=== PATIENT | female | born 1955 | race Caucasian/White ===

== ENCOUNTER 2019-12-20 13:36 | Inpatient (IN) | payer OTHER ==
[~2019-12-20] VITALS: Ht 157.5 cm; Wt 78.9 kg
[2019-12-20] VITALS (32 sets, daily range): BP systolic 87–136; BP diastolic 41–63
--- NOTE | 2019-12-20 13:36 | NUR ---
Patient BIBA ALS accompanied by Ariana DOWELL, transferred to bed 10. RN evaluating patient at bedside.
[2019-12-20] MEDS ORDERED: NACL 0.9% 2,000 ML IV ONE (13:45)
[2019-12-20] MEDS ORDERED: MEROPENEM 1,000 MG in NACL 0.9% 100 ML IV ONE (13:45)
[2019-12-20] MEDS ORDERED: VANCOMYCIN 1,000 MG in DEXTROSE 5% 250 ML IV ONE (13:45)
[2019-12-20] MEDS ORDERED: CARV12.52 PO (13:54)
[2019-12-20] MEDS ORDERED: SYN.075 PO (13:54)
[2019-12-20] MEDS ORDERED: LEVE1000 PO (13:54)
[2019-12-20] MEDS ORDERED: VIT500LI GT (13:54)
[2019-12-20] MEDS ORDERED: MULT-1328 GT (13:54)
[2019-12-20] MEDS ORDERED: TRAM50TA1 GT (13:58)
[2019-12-20] MEDS ORDERED: INSU100S5 IJ (13:58)
[2019-12-20] MEDS ORDERED: LANTUS SC (13:58)
--- NOTE | 2019-12-20 13:58 | NUR ---
64 Y/O F BIBA FROM [facility] C/C HYPOXIC, LOW SPO2. PT ON TRACH, VENTED BY BVM WITH HIGH FLOW EN ROUTE TO HOSPITAL AT A SPO2 78%. NKA. HX MULTIPLE CARDIAC ARREST, ANOXIC ENCEPHALOPATHY, PACEMAKER, DVT, HTN, HLD, DM, CVA, SEIZURE. RX SEE LIST. PT PRESENTS WITH TRACH, G-TUBE. A/OX0.
--- NOTE | 2019-12-20 14:02 | NUR ---
EMT FOR EKG AT BEDSIDE
--- NOTE | 2019-12-20 14:02 | NUR ---
ERMD AT BEDSIDE
--- NOTE | 2019-12-20 14:02 | NUR ---
RT AT BEDSIDE
[2019-12-20] MEDS ORDERED: MEROPENEM 1,000 MG VIAL IV ONE (14:08)
[2019-12-20] MEDS ORDERED: VANCOMYCIN 1,000 MG VIAL ONE (14:09)
[2019-12-20 14:12] LABS: BASOPHILS % (AUTO) 0.5 % (0.0-2.0); EOSINOPHILS % (AUTO) 0.8 % (0.0-4.0); HEMATOCRIT 31.5 % (36-48); HEMOGLOBIN 10.3 g/dL (12.0-16.0); LYMPHOCYTES # (AUTO) 0.2 K/uL (2.5-16.5); LYMPHOCYTES % (AUTO) 8.7 % (20.5-51.1); MEAN CORPUSCULAR HEMOGLOBIN 30 pg (27-31); MEAN CORPUSCULAR HGB CONC 33 g/dL (33-37); MEAN CORPUSCULAR VOLUME 90.8 fL (80-94); MONOCYTES # (AUTO) 0.1 K/uL (0.8-1.0); MONOCYTES % (AUTO) 2.3 % (1.7-9.3); NEUTROPHILS # (AUTO) 2.5 K/uL (1.8-7.7); NEUTROPHILS % (AUTO) 87.7 % (42.2-75.2); PLATELET COUNT (AUTO) 293 K/uL (140-450); RED BLOOD CELL COUNT(AUTO) 3.47 MIL/uL (4.20-5.40); RED CELL DISTRIBUTION WIDTH 17.2 % (11.6-13.7); WHITE BLOOD COUNT (AUTO) 2.9 K/uL (4.8-10.8)
[2019-12-20 14:26] LABS: APPEARANCE,URINE CLEAR (CLEAR); BILIRUBIN,URINE NEGATIVE (NEGATIVE); BLOOD, URINE 3+ (NEGATIVE); COLOR,URINE YELLOW (YELLOW); LEUKOCYTE ESTERASE ,URINE 2+ (NEGATIVE); NITRITE, URINE POSITIVE (NEGATIVE); UGLUCOSE NEGATIVE (NEGATIVE)
[2019-12-20 14:47] LABS: PROTHROMBIN TIME 10.3 secs (10.8-13.4)
[2019-12-20] MEDS ORDERED: NOREPINEPHRINE 4 MG/4 ML VIAL IV ONE (15:06)
[2019-12-20 15:16] LABS: ALBUMIN 2.3 g/dL (3.4-5.0); ANION GAP 10.2 (8-16); CARBON DIOXIDE 31.2 mmol/L (21-32); CREATININE 1.2 mg/dL (0.6-1.3); TOTAL BILIRUBIN 0.8 mg/dL (0.0-1.0)
[2019-12-20] MEDS: NOREPINEPHRINE 4 MG in DEXTROSE 5% 250 ML IV ONE (15:23)
--- NOTE | 2019-12-20 15:23 | NUR ---
PT STARTED ON LEVOPHED VSS- SEE FLOWSHEET
[2019-12-20 15:27] LABS: POTASSIUM 2.4 mmol/L (3.5-5.1)
[2019-12-20] MEDS ORDERED: POTASSIUM CHL 20 MEQ/ 1/2 NS 1,000 ML IV ONE (15:30)
--- NOTE | 2019-12-20 15:36 | NUR ---
INITIAL LEVOPHED DOSE 5 MCG/MIN INCREASED TO 7 MCG/MIN TO MEET SBP GOAL WILL CONTINUE MONITOR
[2019-12-20] MEDS ORDERED: KCL 20 MEQ/WATER INJ PREMIX 100 ML IV ONE (16:00)
--- NOTE | 2019-12-20 16:06 | NUR ---
SBP MAINTAINED AT 7MCG/MIN ERMD AWARE
--- NOTE | 2019-12-20 16:06 | NUR ---
ERMD AT BEDSIDE INITIATING A CENTRAL LINE
--- NOTE | 2019-12-20 17:25 | NUR ---
PT TRANSFERRED FROM ER TO ICU, BEDSIDE REPORT RECEIVED FROM BANDAR OCHOA. PT DOES NOT FOLLOW COMMANDS AT THIS TIME. PACED RHYTHM ON MONITOR. TRACH TO VENT WITH SETTINGS AC 14, FIO2 100%, VT 500, PEEP 5. LUNGS SOUND COARSE, DIMINISHED AT BASES. NO RESP DISTRESS NOTED. CENTRAL LINE TO LEFT SUBCLAVIAN PATENT AND INTACT. PT IS ON LEVOPHED DRIP AT 7 MCG/MIN. G-TUBE IN PLACE, ABD ROUND, NONTENDER W/ ACTIVE BOWEL SOUNDS. BELL CATH IN PLACE, HEMATURIA NOTED. DR. PIEDRA MADE AWARE OF HEMATURIA. SKIN IS INTACT, DRY AND WARM TO TOUCH. AFEBRILE. FLACC 0. HOB 30 DEGREES. BED IN LOWEST POSITION LOCKED. CALL LIGHT WITHIN REACH. NO SIGNS OF DISTRESS NOTED. WILL CONTINUE TO MONITOR.
[2019-12-20] MEDS ORDERED: ACETAMINOPHEN 325 MG SUPP RC PRN (17:30)
[2019-12-20] MEDS ORDERED: NACL 0.9% 500 ML IV ONE (17:30)
--- NOTE | 2019-12-20 17:34 | NUR ---
Patient will be admitted to care of GROBLER. Admited to ICU. Will go to room 1. Belongings list completed. Report to BANDAR WILSON.
[2019-12-20] MEDS ORDERED: VANCOMYCIN PER PHARMACY MC PRN (18:00)
[2019-12-20] MEDS ORDERED: KCL 20 MEQ/WATER INJ PREMIX 200 ML IV SCH (18:00)
--- NOTE | 2019-12-20 18:00 | NUR ---
DR. PIEDRA IN TO SEE PT. WILL FOLLOW UP ON ORDERS.
[2019-12-20] MEDS ORDERED: ONDANSETRON 4 MG/2 ML VIAL IVP PRN (18:05)
[2019-12-20] MEDS ORDERED: NOREPINEPHRINE 4 MG in DEXTROSE 5% 250 ML IV PRN (18:10)
--- NOTE | 2019-12-20 19:20 | NUR ---
RECEIVED PATIENT WITH HOB ELEVATED TO 30 DEGREE; LETHARGIC BUT AROUSABLE TO ONE STEP COMMANDS. AT BEDSIDE. ON TRACH TO VENT AT 50% FIO2, SO2 100%. CARDIACSCOPE SHOWS ON SINUS RHYTHM HR 70 /MIN. WITH PERMANENT PACER IN PLACE Addendum: 12/21/19 at 0624 by Azeb Reynolds RN DUPLICATE DOCUMENTATION
--- NOTE | 2019-12-20 19:20 | NUR ---
RECEIVED PATIENT ON BED WITH HOB TO 30 DEGREE; LETHARGIC BUT AROUSABLE TO CALLS BY OPENING HER EYES. TRACHEOSTOMY IN SITU TO [facility] VENTILATOR AT 50% FIO2; S02 100%. CARDIACSCOPE SHOWS ON SINUS RHYTHM HR 70/MIN NO ARRHYTHMIAS SEEN. PERMANENT PACEMAKER IN PLACE TO RIGHT UPPER CHEST AND NOTED STILL WITH STAPLE WIRES. COMMENCING ON IVF NORMAL SALINE AT 100ML/HR WITH CENTRAL LINE ON LEFT SUBCLAVIAN AND ON LEVOPHED DRIP AT 5 MCG/MIN; PATENT AND INTACT. ABDOMEN IS SOFT, HYPOACTIVE BOWEL SOUNDS; G TUBE IN PLACE, CLAMPED FOR NOW. WITH BELL CATH TO GRAVITY DRAINAGE BAG DRAINING TO DARK ORANGE TO REDDISH URINE OUTPUT; INTACT.
--- NOTE | 2019-12-20 19:30 | NUR ---
REPORT GIVEN TO TIME PIECE REPAIRER RN FOR CONTINUITY OF CARE. NO SIGNS OF DISTRESS NOTED AT THIS TIME.
[2019-12-20] MEDS ORDERED: PIPERACILLIN/TAZOBACTAM 3.375 GM VIAL IV ONE (19:38)
[2019-12-20 20:06] LABS: HEMATOCRIT 24.3 % (36-48); HEMOGLOBIN 7.8 g/dL (12.0-16.0); MEAN CORPUSCULAR HEMOGLOBIN 29 pg (27-31); MEAN CORPUSCULAR HGB CONC 32 g/dL (33-37); MEAN CORPUSCULAR VOLUME 90.2 fL (80-94); PLATELET COUNT (AUTO) 254 K/uL (140-450); RED CELL DISTRIBUTION WIDTH 16.6 % (11.6-13.7); WHITE BLOOD COUNT (AUTO) 20.4 K/uL (4.8-10.8)
[2019-12-20] MEDS: PIPERACILLIN/TAZOBACTAM 3.375 GM in DEXTROSE 5% 50 ML IV SCH (20:07)
[2019-12-20 20:19] LABS: ANION GAP 11.1 (8-16); CARBON DIOXIDE 27.9 mmol/L (21-32); CREATININE 1.2 mg/dL (0.6-1.3)
[2019-12-20 20:21] LABS: BASOPHILS % (MANUAL) 0 % (0-2); EOSINOPHILS % (MANUAL) 0 % (0-4); LYMPHOCYTES % (MANUAL) 1 % (20-46); MONOCYTES % (MANUAL) 4 % (5-12)
[2019-12-20] MEDS: FAMOTIDINE 20 MG/2 ML VIAL IV SCH (20:39)
[2019-12-20] MEDS: MORPHINE SULFATE 2 MG/ML SYR IVP PRN (20:40)
--- NOTE | 2019-12-20 20:56 | NUR ---
Received pt stable on vent support at documented settings, will titrate Fio2 as tolerated, suctioned small thick blood tinged yellow secretions, no resp distress or SOB noted at this time, found Shiley 6 trach, trach secured/patent/midline, alarms set and audible, ambu bag at bedside, vent plugged into red outlet and wiped down, cont pulse ox on, will cont to monitor.
--- NOTE | 2019-12-20 22:05 | NUR ---
SEEN AND EXAMINED BY DR. LOOMIS, NO NEW ORDER MADE.
[2019-12-21] VITALS (26 sets, daily range): BP systolic 95–152; BP diastolic 43–69
--- NOTE | 2019-12-21 | NUR ---
TURNED AND REPOSITIONED PATIENT; ORAL CARE DONE WITH VAP KIT.
[2019-12-21] MEDS ORDERED: PIPERACILLIN/TAZOBACTAM 3.375 GM VIAL IV ONE ×2 (00:09→04:33)
[2019-12-21] MEDS: PIPERACILLIN/TAZOBACTAM 3.375 GM in DEXTROSE 5% 50 ML IV SCH ×4 (00:18→17:05)
--- NOTE | 2019-12-21 00:30 | NUR ---
BP WITHIN NORMAL RANGE; LEVOPHED DRIP TAPER AND HOLD.
[2019-12-21] MEDS ORDERED: VANCOMYCIN 1GM/DEXT 5% PREMIX 200 ML IV SCH (02:00)
[2019-12-21] MEDS: NACL 0.9% 1,000 ML IV SCH ×3 (03:35→13:35)
--- NOTE | 2019-12-21 04:00 | NUR ---
MORNING BED BATH DONE; KEPT CLEAN AND COMFORTABLE.
[2019-12-21 05:21] LABS: HEMATOCRIT 22.1 % (36-48); HEMOGLOBIN 7.2 g/dL (12.0-16.0); MEAN CORPUSCULAR HEMOGLOBIN 29 pg (27-31); MEAN CORPUSCULAR HGB CONC 33 g/dL (33-37); MEAN CORPUSCULAR VOLUME 89.9 fL (80-94); PLATELET COUNT (AUTO) 179 K/uL (140-450); RED BLOOD CELL COUNT(AUTO) 2.46 MIL/uL (4.20-5.40); RED CELL DISTRIBUTION WIDTH 16.9 % (11.6-13.7); WHITE BLOOD COUNT (AUTO) 14.2 K/uL (4.8-10.8)
[2019-12-21 06:02] LABS: BASOPHILS % (MANUAL) 0 % (0-2); EOSINOPHILS % (MANUAL) 0 % (0-4); LYMPHOCYTES % (MANUAL) 4 % (20-46); MONOCYTES % (MANUAL) 6 % (5-12)
[2019-12-21 06:12] LABS: ANION GAP 11.8 (8-16); CARBON DIOXIDE 25.7 mmol/L (21-32); CREATININE 1.4 mg/dL (0.6-1.3)
[2019-12-21 06:28] LABS: POTASSIUM 2.5 mmol/L (3.5-5.1)
[2019-12-21] MEDS ORDERED: KCL 20 MEQ/WATER INJ PREMIX 300 ML IV ONE (06:50)
[2019-12-21] MEDS ORDERED: KCL 20 MEQ/WATER INJ PREMIX 200 ML IV ONE (07:00)
--- NOTE | 2019-12-21 07:30 | NUR ---
BEDSIDE REPORT RECEIVED FROM CUT PLUG PACKER RN. PT OPENS EYES TO NAME, ABLE TO MAKE NEEDS KNOWN AND FOLLOWS COMMANDS. DENIES PAIN OR NAUSEA. AFEBRILE. PACED RHYTHM ON MONITOR. PACEMAKER AT RIGHT CHEST. TRACH TO VENT WITH SETTINGS AC 14, FIO2 40%, VT 500, PEEP 5. RHONCHI HEARD BILATERALLY, DIMINISHED AT BASES. NO SOB NOTED. CENTRAL LINE TO LEFT SUBCLAVIAN PATENT AND INTACT. PT IS RECEIVING IVF NS AT 100 ML/HR. G-TUBE IN PLACE, RECEIVING TUBE FEEDING GLUCERNA AT 40 ML/HR WITH FWF 150 ML Q4H, ABD SOFT, ROUND, NONTENDER W/ ACTIVE BOWEL SOUNDS. BELL CATH IN PLACE DRAINING DARK ORANGE URINE TO GRAVITY. SKIN IS DRY AND WARM TO TOUCH. HEALED INCISION TO RIGHT CHEST AND ABDOMEN NOTED. HOB 30 DEGREES. BED IN LOWEST POSITION LOCKED. CALL LIGHT WITHIN REACH. NO SIGNS OF DISTRESS NOTED. WILL CONTINUE TO MONITOR.
--- NOTE | 2019-12-21 09:40 | NUR ---
PT SEEN AND EXAMINED BY DR. PIEDRA. PER DR. PIEDRA, NO NEED TO GIVE ANOTHER 60 MEQ KCL AFTER THE FIRST 60 MEQ KCL. GIVE 20 MEQ KCL MIXED IN 1 LITER OF NORMAL SALINE X1 INSTEAD. ORDER NOTED AND WILL CARRY OUT. Addendum: 12/21/19 at 1752 by Joanie Streeter RN DR. PIEDRA AWARE OF PT'S LOW URINE OUTPUT OF 200 ML TOTAL DURING ENTEROSTOMAL NURSE.
[2019-12-21] MEDS ORDERED: POTASSIUM CHL 20 MEQ/NACL 0.9% 1,000 ML IV SCH ×3 (10:00→13:00)
[2019-12-21] MEDS: INSULIN LISPRO SLIDING SCALE 100 UNITS/ML VIAL SUBQ PRN ×2 (11:34→17:32)
[2019-12-21] MEDS: BLOOD GLUCOSE MONITORING 1 DEV DEV FS SCH ×2 (11:34→17:32)
--- NOTE | 2019-12-21 11:55 | NUR ---
PT HAD MODERATE AMOUNT OF LOOSE BOWEL MOVEMENT. CLEANED AND REPOSITIONED. VAP ORAL CARE GIVEN. PT IS AFEBRILE, DENIES PAIN OR ANY DISCOMFORT AT THIS TIME. TOLERATING TUBE FEEDING. TRACH TO VENT. SAFETY PRECAUTIONS IN PLACE. WILL CONTINUE TO MONITOR.
[2019-12-21] MEDS ORDERED: POTASSIUM CHLORIDE 20 MEQ in NACL 0.9% 1,000 ML IV SCH (13:00)
[2019-12-21] MEDS: VANCOMYCIN 750 MG in DEXTROSE 5% 250 ML IV SCH (13:46)
--- NOTE | 2019-12-21 15:18 | NUR ---
PT SEEN BY DR. LOOMIS. UPDATES GIVEN ON PT'S CONDITION. NO NEW ORDER RECEIVED AT THIS TIME.
--- NOTE | 2019-12-21 16:00 | NUR ---
VAP ORAL CARE GIVEN. TURNED AND REPOSITIONED. NO SIGNS OF DISTRESS NOTED. PT IS AFEBRILE. NO C/O PAIN. NO RESIDUALS NOTED FROM TUBE FEEDING. VSS. WILL CONTINUE TO MONITOR.
[2019-12-21] MEDS: MORPHINE SULFATE 2 MG/ML SYR IVP PRN (16:30)
--- NOTE | 2019-12-21 17:54 | NUR ---
PT HAD MODERATE AMOUNT OF LOOSE BOWEL MOVEMENT. CLEANED AND REPOSITIONED FOR COMFORT AND PRESSURE AREAS OFF LOADED. PT TOLERATED WELL.
--- NOTE | 2019-12-21 18:17 | NUR ---
DR. IGNACIO IN TO SEE PT. WILL FOLLOW UP ON ORDERS.
--- NOTE | 2019-12-21 18:32 | NUR ---
PAGED DR. LOOMIS REGARDING BLOOD CULTURE RESULT. AWAITING CALL BACK.
--- NOTE | 2019-12-21 19:01 | NUR ---
RECEIVED TRACH PT WITH MISTY 6 AND SECURED WITH TRACH TIE ON VENT SETTINGS ORDERED. VENT PLUGGED IN RED OUTLET, BVM AT BEDSIDE, HOB > 30, AND ALARMS SET AND AUDIBLE. SX SMALL AMOUNT OF PINK TINGED SECRETIONS. NO RESPIRATORY DISTRESS NOTED AT THIS TIME; SP02 OF 95% AND A COARSE BREATH SOUNDS. WILL CONTINUE TO MONITOR PT.
--- NOTE | 2019-12-21 19:34 | NUR ---
REPORT GIVEN TO QUALITY ENG RN FOR CONTINUITY OF CARE. PT IS IN STABLE CONDITION.
[2019-12-21] MEDS: FAMOTIDINE 20 MG/2 ML VIAL IV SCH (21:49)
[2019-12-21] MEDS: LORazepam 2 MG/ML VIAL IVP PRN (21:51)
--- NOTE | 2019-12-21 22:30 | NUR ---
RECEIVED REPORT FROM DAY SHIFT PATIENT IS AWAKE ALERT FOLLOWED SIMPLE COMMAND BY NODDING WHEN ASKED IF IN PAIN ,PATIENT IS BEING VENTILATED WITH MECHANICAL VENTILATOR THRU HER TRACH TUBE,VENT SETTINT IS AC 14 WITH FIO2 40%,TIDAL VOLUME OF 500 WITH PEEP OF 5,PATIENT IS SATURATING 98%,PATIENT WITH LEFT SUBCLAVIAN TRIPLE LUMEN CATHETER ,HAS AN IV OF NORMAL SALINE WITH 20 MEQKCL INFUSING AT 50CC/HR.PATIENT IS ON CONTINOUS FEEDING WITH GLUCERNA 1.2 AT 50CC/HR THRU HER PEG.ABDOMEN IS SOFT HAS ACTIVE BOWEL SOUND PATIENT IS TOLERATING FEEDING ATB THIS TIME.BELL CATH IN PLACE URINE IS PALE YELLOW WITH SEDIMENTS.PATIENT HAS A PERMANENT PACER ,SITE IS ON RIGHT CHEST SITE STILL WITH JUDE IN PLACE.KEPT HEAD OF BED ELEVATED .NO DISTRESS NOITED PATIENT INTERMITTENTLY ANXIOUS ,TRIGGERING VENT OFTEN ASKED IF IN PAIN BUT PATIENT NODS HEAD ASKED IF SHE FEELS HOT SHE IS TRYING TO KICK HER COVERS AND SHE NODS.SO REMOVED HER COVERS FOR NOW.
[2019-12-22] VITALS (11 sets, daily range): BP systolic 124–186; BP diastolic 53–89
[2019-12-22] MEDS: PIPERACILLIN/TAZOBACTAM 3.375 GM in DEXTROSE 5% 50 ML IV SCH ×4 (00:59→17:54)
[2019-12-22] MEDS: INSULIN LISPRO SLIDING SCALE 100 UNITS/ML VIAL SUBQ PRN ×3 (01:30→17:26)
--- NOTE | 2019-12-22 05:05 | NUR ---
TRANSFERRED PATIENT INTO ROOM 123 TELE PATIENT REMAIN AWAKE BUT VERY AGITATED AT THIS TIME DUE TO THE MOVEMENT.
--- NOTE | 2019-12-22 05:45 | NUR ---
CONTINUE TO BE AGITATED AND RESTLESS,MEDICATED WITH ATIVAN 2 MG IVP.ACCUCHECK IS 194 COVERED WITH 2 UNITS OF HUMULOG
[2019-12-22 05:54] LABS: BASOPHILS % (AUTO) 0.3 % (0.0-2.0); EOSINOPHILS # (AUTO) 0.1 K/uL (0-0.4); EOSINOPHILS % (AUTO) 0.9 % (0.0-4.0); LYMPHOCYTES # (AUTO) 0.7 K/uL (2.5-16.5); LYMPHOCYTES % (AUTO) 7.1 % (20.5-51.1); MEAN CORPUSCULAR HEMOGLOBIN 30 pg (27-31); MEAN CORPUSCULAR HGB CONC 33 g/dL (33-37); MONOCYTES # (AUTO) 0.8 K/uL (0.8-1.0); MONOCYTES % (AUTO) 7.4 % (1.7-9.3); NEUTROPHILS # (AUTO) 8.8 K/uL (1.8-7.7); NEUTROPHILS % (AUTO) 84.3 % (42.2-75.2); PLATELET COUNT (AUTO) 183 K/uL (140-450); RED BLOOD CELL COUNT(AUTO) 2.15 MIL/uL (4.20-5.40); RED CELL DISTRIBUTION WIDTH 16.7 % (11.6-13.7); WHITE BLOOD COUNT (AUTO) 10.4 K/uL (4.8-10.8)
[2019-12-22 06:02] LABS: ALBUMIN 1.7 g/dL (3.4-5.0); ANION GAP 12.4 (8-16); CREATININE 1.6 mg/dL (0.6-1.3); TOTAL BILIRUBIN 0.6 mg/dL (0.0-1.0)
[2019-12-22 06:05] LABS: POTASSIUM 2.4 mmol/L (3.5-5.1)
[2019-12-22] MEDS: BLOOD GLUCOSE MONITORING 1 DEV DEV FS SCH ×4 (06:08→17:24)
[2019-12-22] MEDS: LORazepam 2 MG/ML VIAL IVP PRN ×2 (06:17→17:04)
--- NOTE | 2019-12-22 06:30 | NUR ---
PUT IN A CALL TO DR CARUSO FOR A CRITICAL POT 2.4,AWAITING FOR HIM TO CALL BACK
--- NOTE | 2019-12-22 07:00 | NUR ---
ADDITIONAL NOTE PATIENT NOTED TO HAVE JUDE STILL IN PLACE ON ABDOMEN ,WASNT SURE WHAT ARE THERE FOR ,I DID NOT SEE ANY NOTES ON HISTORY AND PHYSICAL OBTAIN IN ER INITIALLY ,SHE ALSO HAS STAPKLES ON HER RIGHT CHES W.C SITES OF JUDE ARE REDDENED,WILL CAMILLE NÚÑEZ.
--- NOTE | 2019-12-22 07:02 | NUR ---
rec'd pt on carescape vent settings ac 14 vt 500 peep 5 fio2 35% alarms on and audible and ambu bag at hob and vent is plugged into red outlet b\sare clear bilaterally, sxn pt small amt of pink tint secretions, pt is trach with veag 6 and pt is resting with no signs of distress noted at this time
[2019-12-22 07:18] LABS: HEMATOCRIT 19.3 % (36-48); HEMOGLOBIN 6.4 g/dL (12.0-16.0)
--- NOTE | 2019-12-22 07:30 | NUR ---
RECEIVED REPORT FROM MARKETING ASSISTANT MANAGER RN AT BEDSIDE FOR CONTINUITY OF CARE. PATIENT IS RESTING IN BED COMFORTABLY. PATIENT IS BEING VENTILATED WITH MECHANICAL VENTILATOR THRU HER TRACH TUBE,VENT SETTING IS AC 14 WITH FIO2 40%,TIDAL VOLUME OF 500 WITH PEEP OF 5, PATIENT IS SATURATING 97%,PATIENT WITH LEFT SUBCLAVIAN TRIPLE LUMEN CATHETER, PATIENT IS ON CONTINUOUS FEEDING WITH GLUCERNA 1.2 AT 50 CC/HR THRU PEG. ABDOMEN IS SOFT WITH ACTIVE BOWEL SOUNDS. BELL CATH IN PLACE DRAINING TO GRAVITY, URINE IS DARK YELLOW WITH SEDIMENTS. PATIENT HAS A PERMANENT PACER IS ON RIGHT CHEST SITE STILL WITH JUDE IN PLACE. KEPT HEAD OF BED ELEVATED. NO DISTRESS OR SOB NOTED. PATIENT HAS SCDS, UPDATED BOARD. SAFETY AND SEIZURE PRECAUTIONS IN PLACE, BED ON LOWEST POSITION WITH ALARM AND BRAKES ON, CALL LIGHT WITHIN REACH, WILL CONTINUE TO MONITOR PATIENT.
--- NOTE | 2019-12-22 07:39 | NUR ---
PATIENT HAS BEEN SCREENED AND CATEGORIZED HIGH NUTRITION RISK. PATIENT WILL BE SEEN WITHIN 1-2 DAYS OF ADMISSION. 12/22/[address]
[2019-12-22] MEDS ORDERED: NACL 0.9% IV SCH ×2 (08:30→16:00)
[2019-12-22] MEDS ORDERED: LIDOCAINE MPF IV SCH ×2 (08:30→16:00)
[2019-12-22] MEDS ORDERED: POTASSIUM CHLORIDE IV SCH ×2 (08:30→16:00)
--- NOTE | 2019-12-22 10:30 | NUR ---
CALLED PATIENT'S FAMILY, JAIMIE PIÑA, FOR BLOOD TRANSFUSION CONSENT OVER PHONE, BANDAR LYNNE, CO WITNESS. PAGED DR. PIEDRA FOR PHYSICIAN'S CONSENT.
--- NOTE | 2019-12-22 10:43 | NUR ---
Camera Prototyping Engineer Note: Basic Screen: Yes High Risk DC Screen [facility]: JAIMIE PIÑA Home Relationship: Pre-Admission Living Arrangements: SNF Prior ADL Total/Dependent Current Home Health Name/Tel: N/A Current DME/02 Name/Tel: HOSPITAL BED Current Hospice Name/Tel: N/A Current Dialysis Name/Tel: N/A Healthcare Decision Maker: Next of Kin Other: JAIMIE PIÑA - Advance Directive No Physician Orders for Life Sustaining Treatment Form No Patient/Family Have Educational Needs No Discipline: Case Mgt/Social Svcs Tentative Discharge Plan/Destination: SNF/ECF Will require assistance post discharge: No Referred to Trust Mail Clerk: No Tentative Discharge Plan Summary: Patient is a 64-year-old female admitted for septic shock. Patient has PMHX of cardiac arrest, anoxic enephalopathy, hx of pacemaker, DVT, hypertension, hyperlipedemia, diabetes, stroke, and seizures. Patient [facility] from [facility]. SW contacted Johanna from [facility] [phone]. Per Johanna, patient is bed bound and requires total assistance with ADLs. Patient is a sub-acute patient and is currently on a bed hold. Johanna stated that patient is not alert/oriented at baseline. Tentative discharge plan is for patient to return to [facility]. No further needs identified. Signature: GANESH Silver Date: Dec 22, 2019 Time: 10:42
--- NOTE | 2019-12-22 10:45 | NUR ---
DR PIEDRA CALLED BACK, INFORMED HIM ABOUT NEEDING PHYSICIAN'S CONSENT, HE STATED THAT DR AGGARWAL WILL DO HIS ROUNDS AND CAN SIGN FOR CONSENT. RN VERBALIZED UNDERSTANDING.
--- NOTE | 2019-12-22 12:05 | NUR ---
PATIENT HAD LARGE BM. PATIENT CLEANED AND CHANGED THEN REPOSITIONED FOR COMFORT AND TO OFFLOAD PRESSURED AREAS. PATIENT TOLERATED IT WELL. WILL CONTINUE TO MONITOR PATIENT.
--- NOTE | 2019-12-22 13:05 | NUR ---
DR. AGGARWAL ON THE FLOOR ROUNDING. BLOOD TRANSFUSION CONSENT SIGNED. ONE UNIT OF PRBC STARTED. PATIENT TOLERATING IT WELL. NO COMPLAINTS AT THIS TIME. SAFETY AND SEIZURE PRECAUTIONS IN PLACE, CALL LIGHT WITHIN REACH, WILL CONTINUE TO MONITOR PATIENT.
[2019-12-22] MEDS: VANCOMYCIN 750 MG in DEXTROSE 5% 250 ML IV SCH (15:14)
--- NOTE | 2019-12-22 16:30 | NUR ---
PAGED DR. PIEDRA ABOUT PATIENT'S ELEVATED BP. WILL WAIT FOR HIS CALL BACK FOR NEW ORDERS.
--- NOTE | 2019-12-22 17:05 | NUR ---
2ND BAG OF KCL GIVEN. ATIVAN GIVEN PRN FOR AGITATION. PATIENT TOLERATED IT. WILL CONTINUE TO MONITOR PATIENT.
--- NOTE | 2019-12-22 17:08 | NUR ---
12/22/19 INITIAL ASSESSMENT COMPLETED PLEASE REFER TO NUTRITION ASSESSMENT UNDER CARE ACTIVITY FOR ESTIMATED NUTRITIONAL NEEDS. 1. RECOMMEND GLUCERNA 1.2 @ 60 ML/HR -THIS WILL PROVIDE 1440 ML IN VOLUME, 1728 KCALS, AND 87 GM OF PROTEIN. THIS IS MEETING 100% OF PTS CALORIC NEEDS AND 92% OF PTS PROTEIN NEEDS. 2. RECOMMEND FREE WATER FLUSH OF [address] TO FOLLOW-UP 2-3 DAYS, HIGH RISK REVIEWED BY ROBERT MONTES RD
--- NOTE | 2019-12-22 17:12 | NUR ---
DC [age] YRS OLD FEMALE PATIENT WAS [place] [facility] [place] DX OF [place]PTIC SHOCK. PT HAS A HX OF CARDIAC ARREST ,ANOXIC ENCEPHALOPATHY, PACEMAKER ,DVT AND HTN. ADMINISTERED IVF VANCOMYCIN AND ZOSYN CONSULTED WITH ID DR LOOMIS . DC PLAN TO GO BACK TO [facility] WHEN STABLE CM TO FOLLOW. Addendum: 12/23/19 at 0839 by Rosa Gutierrez CM TRANSFERRED TO ICU LAST NIGHT AT 2130 2/2 TO RESPIRATORY DISTRESS. ON TRACH TO VENT FIO2 80%, O2 SAT 96%. 2 UNITS OF PRBC GIVEN DUE TO H/H 6.4/19.3, POST BT H/H 8.6/25.8. ON MEROPENEM AND VANCOMYCIN. CURRENT LABS INCLUDE WBC 13.3, NA/K 146/2.6, BUN/CREA49/1.4, APTT 21.3. NEGATIVE FOR INF A&B. BLOOD, URINE AND SPUTUM C/S PENDING. STOOL OCCULT BLOOD NEGATIVE. ID CONSULT IN PLACE. DC PLAN PENDING ON PATIENT'S RESPONSE TO TREATMENT. Addendum: 12/24/19 at 1127 by Rosa Gutierrez CM STILL IN ICU, TRACH TO VENT FIO2 60%. ON FENTANYL DRIP. RIGHT SUBCLAVIAN CENTRAL LINE. GT AND FC IN PLACE. STOOL FOR C DIFF PENDING. ON ISOLATION FOR ESBL OF URINE. BLOOD CULTURE NO GROWTH AFTER 48 HOURS. CURRENT LABS INCLUDE WBC 9.8, H/H 7.6/22.2, NA/K 148/2.3, BUN/CREA 47/1.3 AND ALB 1.6. GI CONSULT IN PLACE FOR PROBABLE POST OP ILEUS. CARDIO AND ID CONSULTS IN PLACE. DC PLAN PENDING ON PATIENT'S RESPONSE TO TREATMENT. Addendum: 12/25/19 at 0930 by Rosa Gutierrez STILL IN ICU, CHRONIC TRACH TO VENT FIO2 40%. ON FENTANYL DRIP. LEFT SUBCLAVIAN CENTRAL LINE PATENT AND INTACT. WITH G TUBE AND FC IN PLACE. WITH PACEMAKER. CURRENT LABS INCLUDE WBC 8.5, H/H 7.4/22.8, NA/K 147/4.4, BUN/CREA 48/1.3, ALB 1.6. ON MERREM IV. DOWNGRADED TO TELE. DC PLAN PENDING ON THE PATIENT'S RESPONSE TO TREATMENT. Addendum: 12/26/19 at 1600 by Rosa Gutierrez STILL IN ICU ON TELE STATUS, TRACH TO VENT FIO2 28%. ON CONTACT ISOLATION FOR ESBL OF URINE AND BLOOD. CURRENT LABS INCLUDE WBC 8.5, H/H 7.4/22.8, NA/K 150/3.3, BUN/CREA 41/1.1. ON MEROPENEM. DC PLAN PENDING ON PATIENT'S RESPONSE TO TREATMENT. Addendum: 12/27/19 at 1530 by Martha Mackey DC PLANNING: CONTINUE MEROPENEM FOR PNEUMONIA , VENT SUPPORT FIO2 28% RESUME MAGALIS . DC PLAN BACK TO [facility] IN 1-2 DAYS CM TO FOLLOW Addendum: 12/29/19 at 1119 by Rosa Gutierrez RECEIVED AN ORDER FOR DC BACK TO [facility] [place] MEROPENEM X 5 DAYS. CONTACTED PATIENT'S JAIMIE PIÑA AT [phone] REGARDING DISCHARGING BACK TO [facility] AND IS IN AGREEMENT. ORDER FAXED TO [facility]. CONTACTED [facility] REGARDING DC PLAN AND SHE PROVIDED ME WITH SNF AUTH [id number] AND TRANSPORT AUTH ([facility]) [id number]. PER PATO OF [facility], THEY DO NOT HAVE AN ISO BED AT THIS TIME AND IS INQUIRING IF WE CAN COLONIZE THE INFECTION SINCE THE PATIENT HAVE BEEN ON ANTIBIOTICS FOR DAYS. PRIMARY RN KATIE MADE AWARE. RECEIVED A CALL FROM PRIMARY RN STATING THAT SHE ABLE TO GET A HOLD OF DR LOOMIS AND PER ID DOC PATIENT NEED TO BE ON ISOLATION WHILE IN THE HOSPITAL BECAUSE WE ARE STILL TREATING HER AND IT DEPENDS ON THE [facility]'S PROTOCOL IF THEY STILL WANT TO ISOLATE THE PATIENT. PATO OF [facility] MADE AWARE. SHE STATED SHE WILL DISCUSS THIS WITH THEIR ID NURSE AND WILL CALL ME BACK. CM TO FOLLOW UP. Addendum: 12/29/19 at 1537 by Rosa Gutierrez CM PER RISHABH KOLB [facility], NO ISO BED AT THIS TIME. WILL FOLLOW UP. RECEIVED A CALL FROM DALE KOLB [facility], SHE CONFIRMED THAT THEY DO NOT HAVE AN ISO BED AND IS IN THE PROCESS OF TRYING TO DC ONE OF OF THEIR RESIDENT'S ISO TO ACCOMMODATE THE PATIENT AND WILL GIVE ME A CALL, IF NOT WILL FOLLOW UP WITH ME FIRST THING IN THE MORNING. Addendum: 12/30/19 at 1139 by Rosa Gutierrez CM 0845: PER DALE KOLB [facility], THEY ARE STILL IN THE PROCESS OF ROOM CHANGES TO ACCOMMODATE PATIENT. WILL GIVE ME A CALL BACK SOON BED IS AVAILABLE. 1047: PER RISHABH KOLB [facility], PATIENT CAN GO TO ROOM 7B UNDER DR. HOU/ELKIN. PER GENA KOLB [facility], PASTE MAKER WILL BE AT 1530. PRIMARY RN ACOSTA MADE AWARE.
--- NOTE | 2019-12-22 17:27 | NUR ---
BLOOD SUGAR 279, COVERAGE GIVEN. PATIENT TOLERATED IT WELL. PATIENT HAD BM. PATIENT CLEANED AND CHANGED AND REPOSITIONED FOR COMFORT AND TO OFFLOAD PRESSURED AREAS.
--- NOTE | 2019-12-22 17:47 | NUR ---
PAGED DR PIEDRA TO FOLLOW UP ABOUT PATIENT'S ELEVATED BP. DR. GRANGER COMBAT CONTROL MANAGER, NEW ORDERS IN FOR ONE TIME DOSE OF LASIX AND PRN CLONIDINE 0.1 MG QH4R FOR ELEVATED BP. ORDERS NOTED AND WILL BE CARRIED OUT.
[2019-12-22] MEDS ORDERED: FUROSEMIDE 20 MG/2 ML VIAL IVP SCH ×2 (18:00→20:00)
[2019-12-22] MEDS: MORPHINE SULFATE 2 MG/ML SYR IVP PRN (18:12)
--- NOTE | 2019-12-22 18:40 | NUR ---
CALLED RESPIRATORY THERAPIST TO INFORM THEM ABOUT PATIENT'S O2 SATURATION RATE AT 89-92% ON VENTILATION. THEY VERBALIZED UNDERSTANDING. WILL CONTINUE TO MONITOR PATIENT AND ENDORSE TO WAREHOUSE ORDER SELECTOR NURSE.
[2019-12-22] MEDS ORDERED: CRUSHER, PILL MC ONE (18:56)
--- NOTE | 2019-12-22 19:00 | NUR ---
RT IN TO SEE PATIENT. WILL WAIT TO SEE PATIENT'S CONDITION.
--- NOTE | 2019-12-22 19:20 | NUR ---
REPORT GIVEN TO PEDIATRIC IMMUNOLOGIST NURSE AT BEDSIDE FOR CONTINUITY OF CARE.
[2019-12-22] MEDS: cloNIDine 0.1 MG TAB GT PRN (19:30)
--- NOTE | 2019-12-22 19:30 | NUR ---
RECEIVED PT WITH EYES CLOSED, SQUINT EYES TO TOUCH, LETHARGIC, VITAL SIGNS TAKEN:TEMP-98.5, HR-97, RR-35, SAT-92%, BP-186/80, ON TRACH TO VENT WITH SETTINGS-70%FI02, RATE-14, PEEP-7, LABORED BREATHING NOTED, WILL PAGED RT, G-TUBE FEEDING OFF AT THIS TIME, BELL CATHETER IN PLACE WITH PALE YELLOW OUTPUT, K-RIDER INFUSING WELL VIA LEFT SC CVP LINE, GAVE CLONIDINE 0.1MG VIA G-TUBE FOR SBP ABOVE 160, SAFETY MEASURES IN PLACE, FREQUENT ROUNDS WILL BE MADE.
[2019-12-22] MEDS: FAMOTIDINE 20 MG/2 ML VIAL IV SCH (20:03)
--- NOTE | 2019-12-22 20:34 | NUR ---
BP RECHECKED-190/87, HR-101, SAT-88%, RR-43, TEMP-98.5, ON 80% FI02, RT SALVADOR MADE AWARE AND WENT TO PTS ROOM AND INCREASED FI02 TO 100%, SAT WENT UP TO 93% BUT STILL TACHYPNEIC WITH 43 RR, PAGED DR GRANGER AND MADE AWARE, WITH ORDER TO TRANSFER BACK TO ICU, FOOD OR BAGGAGE HANDLING RAMPMAN VAISHALI MADE AWARE.
--- NOTE | 2019-12-22 21:30 | NUR ---
PATIENT TRANSFERRED TO ICU. BAGGED WITH 100% FIO2.
--- NOTE | 2019-12-22 21:35 | NUR ---
REPORT GIVEN TO BANDAR ASHLEY FOR CONTINUITY OF CARE, PT'S SON JAIMIE MADE AWARE OF TRANSFER BACK TO ICU.
--- NOTE | 2019-12-22 21:40 | NUR ---
RECEIVED PT FROM TELEMETRY UNIT TO ICU 1; MONITORS ATTACHED, PACING 100%.PT CYANOTIC AND PALE WITH COLD CLAMMY SKIN. TEMP 101.9 AXILLA.BLOOD SUGAR CHECKED 265.TRACH TO VENT FIO2 100% PC 30 RATE 14 .W/BLOODY FROTHY SECRETIONS NOTED.WITH TLC TO LT SC, INTACT WITH GOOD BLOOD RETURN.W/GTUBE INTACT.CLAMPED AT THIS TIME.W/BELL CATHETER TO BSD DRAINING CLEAR YELLOW URINE 100ML.SCD TO BLE ALSO IN PLACE.FLACC 0.
--- NOTE | 2019-12-22 22:05 | NUR ---
PHONE CALL TO DR GRANGER; UPDATED ON PTS PRESENT CONDITION.NEW ORDERS RECEIVED.CARRIED OUT.
--- NOTE | 2019-12-22 22:15 | NUR ---
REPORT GIVEN BY CHARGE NURSE AT PATIENTS BEDSIDE. STATES STANDARD PRECAUTIONS. PATIENT LYING IN BED TRACH TO VENT. A/C PC 100-30-0.80-10-60. CHARGE NURSE GIVING MEDICATION ORDERED AT THIS TIME. POTASSIUM CHLORIDE RUNNING AT THIS TIME AT 75ML/HR. PATIENT HAS CENTRAL CATHETER TRIPLE LUMEN LEFT UPPER CHEST. JUDE NOTED IN RIGHT UPPER CHEST BELOW COLLAR BONE. NO PUS NOTED. JUDE INTACT AT THIS TIME. CHARGE NURSE STATES 101.3 TEMP FROM TELE UNIT. SCDS IN PLACE. SKIN PALE AND COLD. PUPILS REACTIVE, SLUGGISH. PATIENT OPENS EYES TO VOICE. PATIENT STARES AT NURSE WHEN TALKING TO PATIENT. FOLLOWS WITH EYE CONTACT. DOES NOT RESPOND IN ANY WAY TO QUESTIONS. BELL CATHETER IN PLACE RUNNING YELLOW URINE IN BAG. COARSE LUNG SOUNDS HEARD BILATERALLY. SCANT BLOOD TINGED SPUTUM COLOR NOTED IN TRACH TUBING. RT STATES HES ALREADY AWARE. PER RECORDS, PATIENT HAS PACEMAKER. HR REGULAR AT THIS TIME. GTUBE NOTED. STAPLED UP INCISION NOTED ON UPPER ABDOMEN ABOVE GTUBE. AREA APPEARS REDDENED AROUND THE BORDERS. PICTURES TAKEN AND PLACED IN CHART. VSS. FEBRILE AT THIS TIME. PACKED CELLS TO BE INFUSED. WILL FOLLOW UP WITH MD. NO SOB OR DISTRESS NOTED AT THIS TIME. RESPIRATIONS NORMAL AND UNLABORED. WILL CONTINUE TO MONITOR. HOB ELEVATED. VAP ORAL CARE KIT AT BEDSIDE. BED IN LOWEST POSITION.
--- NOTE | 2019-12-22 22:21 | NUR ---
PICKED UP PACKED CELLS FROM JACKLYN AT LAB. CONSENT CHECKED. VERIFIED WITH LAB.
[2019-12-22] MEDS: ACETAMINOPHEN 650 MG/20.3 ML UDC GT PRN (22:23)
--- NOTE | 2019-12-22 22:40 | NUR ---
DR. KATHLEEN HAYES. WILL FOLLOW UP.
--- NOTE | 2019-12-22 22:48 | NUR ---
PHONE CALL TO DR GRANGER; MADE AWARE THAT PTS TEMP 101.4; OK TO TRANSFUSE BLOOD; PLACE PT ON COOLING BLANKET AND CLOSELY MONITOR PT. BLOOD CULTURE PRIOR TO STARTING MERREM; AWARE PT ALREADY RECEIVED ANTIBIOTICS IN TELE UNIT, PHONE CALL TO LAB, SPOKE WITH LUCRECIA; UNABLE TO DRAW BLOOD FOR CULTURE WHILE TRANSFUSION IS ONGOING. Addendum: 12/23/19 at 0435 by Rachel Velez RN DR GRANGER MADE AWARE THAT HYDRALAZINE DOSE NOT GIVEN; PTS BP 126/66
--- NOTE | 2019-12-22 22:50 | NUR ---
PACKED CELLS BEGAN INFUSING. NO CHILLS NOTED. RT AT BEDSIDE LISTENING TO LUNGS. SPOKE WITH MD. SEE NOTES. OK TO TRANSFUSE. FEBRILE. NO SOB OR DISTRESS NOTED. VSS. WILL CONTINUE TO MONITOR.
[2019-12-22] MEDS ORDERED: FUROSEMIDE 100 MG/10 ML VIAL IV SCH (23:00)
--- NOTE | 2019-12-22 23:00 | NUR ---
RT AT BEDSIDE. BLOOD TINGED SPUTUM NOTED IN TRACH/ SUCTION TUBING. RT STATES HE IS ALREADY AWARE AND IS NOTED. VSS. NO SOB OR DISTRESS NOTED. WILL CONTINUE TO MONITOR.
--- NOTE | 2019-12-22 23:20 | NUR ---
ONGOING PRBC TRANSFUSION; TEMP 99.9; PT WITH COOLING BLANKET ON.NO UNTOWARD REACTIONS NOTED AT THIS TIME.
--- NOTE | 2019-12-22 23:35 | NUR ---
BM NOTED; LIQUID BROWNISH STOOL.RECTAL BAG APPLIED.INCONTINENT DERMATITIS NOTED ON GROIN AND SACRAL AREA
[2019-12-23] VITALS (78 sets, daily range): BP systolic 98–160; BP diastolic 51–105
--- NOTE | 2019-12-23 | NUR ---
VAP ORAL KIT DONE. PATIENT TOLERATED WELL. VSS. NO DISTRESS NOTED. WILL CONTINUE TO MONITOR.
[2019-12-23] MEDS: BLOOD GLUCOSE MONITORING 1 DEV DEV FS SCH ×5 (00:17→23:26)
--- NOTE | 2019-12-23 00:20 | NUR ---
BLOOD SUGAR CHECKED. 256. 6 UNITS GIVEN PER SLIDING SCALE PER MD ORDERS SUB Q IN ABD. VERIFIED WITH CHARGE NURSE. PATIENTS FEEDING STARTED VIA GTUBE PER MD ORDERS. NO RESIDUAL NOTED. WILL CONTINUE TO MONITOR AT THIS TIME. PATIENT TOLERATED WELL. NO SOB OR DISTRESS NOTED. VSS. PATIENT OPENS EYES TO TOUCH BUT DOES NOT COMMUNICATE BACK AT THIS TIME TO QUESTIONS. WILL FOLLOW NURSE WITH EYE CONTACT AT BEDSIDE. STILL INFUSING PACKED CELLS AT THIS TIME AND RUNNING POTASSIUM CHLORIDE ORDERED IN CENTRAL LINE. TOLERATING WELL. RECTAL BAG DRAINING LIQUID STOOL, LIGHT BROWN. YELLOW URINE NOTED IN BELL CATHETER BAG. WILL CONTINUE TO MONITOR.
[2019-12-23] MEDS: INSULIN LISPRO SLIDING SCALE 100 UNITS/ML VIAL SUBQ PRN ×5 (00:25→23:27)
--- NOTE | 2019-12-23 01:30 | NUR ---
BLOOD TRANSFUSION ENDED. VSS. NO CHILLS. FLACC 0. NO SOB OR DISTRESS NOTED. WILL CONTINUE TO MONITOR.
--- NOTE | 2019-12-23 02:30 | NUR ---
LAB AT PATIENT BEDSIDE. DRAWING BLOOD CULTURES. VSS. NO SOB OR DISTRESS NOTED. WILL CONTINUE TO MONITOR AT THIS TIME.
--- NOTE | 2019-12-23 02:49 | NUR ---
NURSE AT PATIENT BEDSIDE. NO SOB OR DISTRESS NOTED. URINE 225CC. PATIENT APPEARS PEACEFUL WITH EYES CLOSED AND APPEARS TO BE SLEEPING. VSS. WILL CONTINUE TO MONITOR. LASIX GIVEN SLOWLY IVP AMOUNT PER MD ORDERS. PATIENT TOLERATED WELL.
[2019-12-23] MEDS ORDERED: FUROSEMIDE 40 MG/4 ML VIAL IVP SCH (03:00)
--- NOTE | 2019-12-23 03:03 | NUR ---
RT AT PATIENT BEDSIDE
[2019-12-23] MEDS ORDERED: MEROPENEM 500 MG VIAL IV ONE (03:31)
[2019-12-23] MEDS: MEROPENEM 500 MG in NACL 0.9% 50 ML IV SCH ×4 (03:38→20:32)
[2019-12-23] MEDS: LORazepam 2 MG/ML VIAL IVP PRN (03:48)
[2019-12-23] MEDS: MORPHINE SULFATE 2 MG/ML SYR IVP PRN (04:02)
--- NOTE | 2019-12-23 04:20 | NUR ---
LAB AT BEDSIDE. VSS. NO DISTRESS NOTED. TOLERATED WELL.
--- NOTE | 2019-12-23 04:58 | NUR ---
POSITION CHANGE WITH CHARGE NURSE. RT AT BEDSIDE. VSS. TOLERATED WELL. LIQUID STOOL IN BM BAG AND YELLOW URINE NOTED IN BELL BAG. WILL CONTINUE TO MONITOR. NO DISTRESS NOTED. PT APPEARS MORE RESTED AFTER GIVING PRN PAIN MEDICATION.
[2019-12-23] MEDS: HYDRAGUARD CREAM TP PRN (05:04)
--- NOTE | 2019-12-23 05:07 | NUR ---
STOOL SAMPLE TAKEN FROM RECTAL BAG HANGING AT BEDSIDE. SENT TO LAB.
[2019-12-23] MEDS: hydrALAZINE 20 MG/ML VIAL IVP PRN (05:29)
--- NOTE | 2019-12-23 05:40 | NUR ---
PATIENTS BP ABOVE THE PERIMETER PER MD ORDERS, GIVEN MEDICATION ORDERED. WILL CONTINUE TO MONITOR. PATIENT TOUCHING STOMACH. ASSISTED IN RELEASE OF AIR IN STOMACH VIA GTUBE. GIVEN MEDICATION FOR PAIN AND AGITATION. WILL CONTINUE TO MONITOR AT THIS TIME. RT AT BEDSIDE. PATIENT OPENING EYES AND FOLLOWING SIMPLE COMMANDS AT THIS TIME.
[2019-12-23 06:11] LABS: ANION GAP 14.6 (8-16); CREATININE 1.4 mg/dL (0.6-1.3)
[2019-12-23 06:12] LABS: BASOPHILS % (AUTO) 0.3 % (0.0-2.0); EOSINOPHILS % (AUTO) 0.1 % (0.0-4.0); HEMATOCRIT 25.8 % (36-48); HEMOGLOBIN 8.6 g/dL (12.0-16.0); LYMPHOCYTES # (AUTO) 0.5 K/uL (2.5-16.5); MEAN CORPUSCULAR HEMOGLOBIN 30 pg (27-31); MEAN CORPUSCULAR HGB CONC 33 g/dL (33-37); MONOCYTES # (AUTO) 0.9 K/uL (0.8-1.0); MONOCYTES % (AUTO) 6.7 % (1.7-9.3); NEUTROPHILS # (AUTO) 11.9 K/uL (1.8-7.7); NEUTROPHILS % (AUTO) 88.9 % (42.2-75.2); PLATELET COUNT (AUTO) 224 K/uL (140-450); RED CELL DISTRIBUTION WIDTH 16.4 % (11.6-13.7); WHITE BLOOD COUNT (AUTO) 13.3 K/uL (4.8-10.8)
--- NOTE | 2019-12-23 06:23 | NUR ---
RTS AT BEDSIDE FOR ABG DRAW. PATIENT RR ELEVATED TO 46 ON MONITOR DURING NEEDLE STICKING. WILL CONTINUE TO MONITOR. WILL CONTINUE TO MONITOR.
[2019-12-23 06:26] LABS: POTASSIUM 2.6 mmol/L (3.5-5.1)
--- NOTE | 2019-12-23 06:26 | NUR ---
CRITICAL OF POTASSIUM VALUE 2.6/ TRENDING UP. WILL NOTIFY MD. WILL ENDORSE TO DAY SHIFT.
--- NOTE | 2019-12-23 06:56 | NUR ---
DR. WANG PAGESamaria
--- NOTE | 2019-12-23 06:58 | NUR ---
DR WANG CALLED BACK. NOTIFIED MD OF POTASSIUM 2.6 NOTIFIED OF VITALS WITH RR OF 4Os NOTIFIED OF ADMINISTERED HYDRALAZINE, ATIVAN, AND MORPHINE. NOTIFIED OF 12OO OUTPUT URINE NOTIFIED OF WHAT RT STATED. FIO2 80, PC 25, RR 14, PEEP 10, ITIME 0.70 MD STATES POTASSIUM 40MEQ AFTER NOTIFIED OF CENTRAL LINE PRESENT AND STATES 40 THROUGH THE GTUBE WELL. STATES TO START ON 50 MCG FENTANYL. DAY NURSE CHHAYA NOTIFIED OF ALL THE ABOVE WELL. CHARGE NURSES NOTIFIED OF MD ORDERS AND ASSISTED IN PLACEMENT OF ORDERS IN COMPUTER.
--- NOTE | 2019-12-23 07:35 | NUR ---
RECEIVED BEDSIDE REPORT FROM INDUSTRIAL MAINTENANCE ELECTRICIAN NURSE, PT IS OPEN EYES ONLY, PERRL, UNABLE TO FOLLOW COMMANDS, AFEBRILE, FLACC 0, TRACH TO VENT WITH AC/PC MODE, FIO2 80, R 14, PEEP 10, P 25, NO S/S OF DISTRESS, RHONCHI LUNG SOUNDS ROSA. SR ON PHOTONICS ENGINEER, CAP REFILL <2 SEC, SOFT LARGE DISTENDED ABDOMEN NOTED WITH ACTIVE BOWEL SOUNDS, GT IN PLACE FEEDING WITH GLUCERNA 1.2 AT 40 ML/HR, 0 RESIDUALS NOTED, HELD FEEDING TIME DUE TO ABDOMINAL PAIN PER REPORT, BELL CATHETER IN PLACE WITH CLEAR YELLOW URINE VIA GRAVITY, RECTAL BAG IN PLACE WITH BROWN LIQUID STOOL VIA GRAVITY, SKIN IS WARM AND DRY TO TOUCH, DRY SURGICAL JUDE NOTED TO RIGHT UPPER CHEST AND MIDDLE ABDOMINAL AREA, CENTRAL LINE TO LEFT SUBCLAVIAN, TLC, PATENT AND TKO. GENERALIZED WEAKNESS TO ALL EXTREMITIES AND BEDBOUND, HOB ELEVATED TO 30 DEGREES, SAFETY MEASURES IN PLACE, WILL CONTINUE TO MONITOR.
--- NOTE | 2019-12-23 07:36 | NUR ---
PT STABLE AT THIS TIME. VSS. MD NOTIFIED OF RR 40s. CHHAYA AWARE. ENDORSE TO MD ABOUT POSSIBLE STOMACH PAIN. AND LIQUID BM . NO SOB OR DISTRESS NOTED.
[2019-12-23] MEDS ORDERED: POTASSIUM CHLORIDE 20% 40 MEQ/15 ML UDC GT SCH (08:00)
[2019-12-23] MEDS ORDERED: KCL 20 MEQ/WATER INJ PREMIX 200 ML IV SCH (08:00)
--- NOTE | 2019-12-23 08:20 | NUR ---
DR. PIEDRA CAME IN TO SEE PATIENT AT BEDSIDE, UPDATED PATIENT'S CONDITION, WILL FOLLOW UP WITH NEW ORDERS.
[2019-12-23] MEDS: fentaNYL 1 MG in NACL 0.9% 80 ML IV PRN ×2 (08:38→19:29)
--- NOTE | 2019-12-23 08:39 | NUR ---
FENTANYL DRIP STARTED ORDERED, WILL CONTINUE TO MONITOR. Addendum: 12/23/19 at 1425 by Martine Ambrosio RN DRY WEIGHT USING IS 82 KG
--- NOTE | 2019-12-23 10:00 | NUR ---
NO CHANGE OF CONDITION, VSS, FLACC 0, POSITION CHANGED FOR OFF LOAD PRESSURE.
--- NOTE | 2019-12-23 12:00 | NUR ---
NO CHANGE OF CONDITION, VSS, FLACC 0, ORAL CARE PROVIDED, POSITION CHANGED FOR OFF LOAD PRESSURE.
--- NOTE | 2019-12-23 14:00 | NUR ---
VSS, FLACC 0, NO S/S OF DISTRESS, POSITION CHANGED FOR OFF LOAD PRESSURE.
[2019-12-23] MEDS: VANCOMYCIN 750 MG in DEXTROSE 5% 250 ML IV SCH (14:53)
--- NOTE | 2019-12-23 16:00 | NUR ---
PM CARE AND BELL CATHETER PROVIDED, ORAL CARE PROVIDED, POSITION CHANGED FOR OFF LOAD PRESSURE.
--- NOTE | 2019-12-23 18:00 | NUR ---
PLACED ON LWIS TO GT PER DR. PIEDRA'S ORDER.
--- NOTE | 2019-12-23 19:05 | NUR ---
received pt from day shift on pc 25,14,.8,+10,60%. vent plugged into red outlet. bmv at head of bed. alarms audible and working. shiley 6 trach is intact and secured. at bedside. will cont. to monitor
--- NOTE | 2019-12-23 19:12 | NUR ---
REPORT GIVEN TO ADMINISTRATIVE SPECIALIST NURSE AT BEDSIDE FOR CONTINUE OF CARE, PT IS IN STABLE CONDITION AT THIS TIME.
--- NOTE | 2019-12-23 19:20 | NUR ---
RECEIVED REPORT FROM AM SHIFT. PT SEDATED. RASS -2. ON FENTANYL GTT. SR ON MONITOR. AFEBRILE. ON COOLING BLANKET. TRACH TO VENT SHILEY 6 PC 14 FIO2 60 PINSP 25 PEEP 10. SR ON MONITOR. PACEMAKER ON RIGHT SIDE NOTED. NPO AT THIS TIME. ON LWS FOR ILEUS. RECTAL TUBE IN PLACE. F/C IN PLACE. URINE CLEAR YELLOW NO SEDIMENT. SKIN NON INTACT. ABD JUDE NOTED. CENTRAL LINE TO L SUBCLAVIAN. DRESSING DRY AND INTACT. BED IN LOWEST POSITION. CALL LIGHT WITHIN REACH. WILL CONTINUE TO OBSERVE. Addendum: 12/23/19 at 2054 by Tano Quigley RN DRY WEIGHT USED: 82 KG
--- NOTE | 2019-12-23 20:30 | NUR ---
SO AT BEDSIDE AT THIS TIME. UPDATED ON PTS CURRENT CONDITION. UNKNOWN REASON FOR JUDE ON ABD ADDRESSED. WILL CONTINUE TO MONITOR.
[2019-12-23] MEDS: FAMOTIDINE 20 MG/2 ML VIAL IV SCH (20:32)
[2019-12-24] VITALS (105 sets, daily range): BP systolic 113–166; BP diastolic 38–96
--- NOTE | 2019-12-24 01:09 | NUR ---
PT AFEBRILE. NO SIGNS OF ACUTE DISTRESS AT THIS TIME. BED IN LOWEST POSITION. SR ON MONITOR. WILL CONTINUE TO MONITOR.
--- NOTE | 2019-12-24 02:35 | NUR ---
PT OPENS EYES SPONTANEOUSLY. RESPONDS TO VERBAL AND TACTILE STIMULATED. MOVES UPPER EXTREMITIES WEAKLY.
[2019-12-24] MEDS: fentaNYL 1 MG in NACL 0.9% 80 ML IV PRN ×3 (03:53→22:42)
--- NOTE | 2019-12-24 04:52 | NUR ---
NO SIGNS OF ACUTE DISTRESS AT THIS TIME. PT CLEANED AND REPOSITIONED. WILL CONTINUE TO FOLLOW UP ANY ADDITIONAL ORDERS.
[2019-12-24] MEDS: MEROPENEM 500 MG in NACL 0.9% 50 ML IV SCH ×3 (05:01→20:22)
--- NOTE | 2019-12-24 05:05 | NUR ---
pt remains on documented settings. vent plugged into red outlet. bmv at head of bed. alarms audible and working. trach is intact and secured with a trach tie. pt is alert. rn booker at bedside
[2019-12-24] MEDS: BLOOD GLUCOSE MONITORING 1 DEV DEV FS SCH ×3 (06:00→17:39)
[2019-12-24 06:16] LABS: BASOPHILS % (AUTO) 0.3 % (0.0-2.0); EOSINOPHILS # (AUTO) 0.3 K/uL (0-0.4); EOSINOPHILS % (AUTO) 2.7 % (0.0-4.0); HEMATOCRIT 22.2 % (36-48); HEMOGLOBIN 7.6 g/dL (12.0-16.0); LYMPHOCYTES # (AUTO) 0.8 K/uL (2.5-16.5); MEAN CORPUSCULAR HEMOGLOBIN 31 pg (27-31); MEAN CORPUSCULAR HGB CONC 34 g/dL (33-37); MEAN CORPUSCULAR VOLUME 89.4 fL (80-94); MONOCYTES # (AUTO) 0.8 K/uL (0.8-1.0); PLATELET COUNT (AUTO) 215 K/uL (140-450); RED BLOOD CELL COUNT(AUTO) 2.49 MIL/uL (4.20-5.40); RED CELL DISTRIBUTION WIDTH 16.5 % (11.6-13.7); WHITE BLOOD COUNT (AUTO) 9.8 K/uL (4.8-10.8)
[2019-12-24 06:42] LABS: ALBUMIN 1.6 g/dL (3.4-5.0); CARBON DIOXIDE 21.3 mmol/L (21-32); CREATININE 1.3 mg/dL (0.6-1.3); TOTAL BILIRUBIN 0.9 mg/dL (0.0-1.0)
--- NOTE | 2019-12-24 06:42 | NUR ---
CXR AND KUB AT BEDSIDE AT THIS TIME
[2019-12-24 06:48] LABS: POTASSIUM 2.3 mmol/L (3.5-5.1)
--- NOTE | 2019-12-24 06:57 | NUR ---
RECEIVED CRITICAL RESULTS K 3.2 PAGED
--- NOTE | 2019-12-24 06:58 | NUR ---
NO INSULIN ADMINISTRATION PER DR. PIEDRA. D/T PT NPO
--- NOTE | 2019-12-24 07:15 | NUR ---
RECEIVED PATIENT ON VENT SETTINGS CHARTED. PT TRACH SECURE AND CLEAN NO SIGNS OF DISTRESS. VENT PLUGGED IN, ALARMS CHECKED. WILL CONTINUE TO MONITOR PATIENT.
--- NOTE | 2019-12-24 07:19 | NUR ---
ENDORSED CARE TO INCOMING SHIFT RN FOR CONTINUITY OF CARE.
--- NOTE | 2019-12-24 07:30 | NUR ---
BEDSIDE REPORT RECEIVED FROM CORRECTION OFFICER REFORMATORY RN. PT OPENS EYES, ANSWERS QUESTIONS BY NODDING AND SHAKING HEAD BUT DOES NOT FOLLOW COMMANDS AT THIS TIME. PERRL. TEMP 98.7F. DENIES PAIN. NORMAL SINUS RHYTHM ON MONITOR. PACEMAKER AT RIGHT CHEST. CAP REFILL < 2 SEC. PULSES PALPABLE TO ALL EXTREMITIES. TRACH TO VENT WITH SETTINGS AC/PC 14, FIO2 60%, PINSP 25, PEEP 10. LUNGS SOUND CLEAR BILATERALLY, DIMINISHED AT BASES. BREATHING EVEN AND UNLABORED. CENTRAL LINE TLC TO LEFT SUBCLAVIAN ASYMPTOMATIC, PATENT AND INTACT. PT IS RECEIVING FENTANYL DRIP AT 123 MCG/HR (1.5 MCG/KG/HR OR 12.3 ML/HR) AND IVF NS TKO. DRY WEIGHT USED IS 82 KG. G-TUBE IN PLACE, CONNECTED TO LOW SUCTION, YELLOW GASTRIC CONTENTS NOTED. ABD SOFT, DISTENDED, NONTENDER W/ HYPOACTIVE BOWEL SOUNDS. BELL CATH IN PLACE DRAINING CLEAR YELLOW URINE TO GRAVITY. SKIN IS DRY AND WARM TO TOUCH. HEALED INCISION W/ JUDE NOTED TO RIGHT CHEST AND ABDOMEN. RECTAL BAG INTACT, DRAINING LIQUID STOOL TO GRAVITY DRAINAGE BAG. HOB AT 30 DEGREES. BED IN LOWEST POSITION LOCKED. CALL LIGHT WITHIN REACH. NO SIGNS OF DISTRESS NOTED. WILL CONTINUE TO MONITOR. Addendum: 12/24/19 at 1555 by Joanie Streeter RN PT IS RASS -2
[2019-12-24] MEDS: KCL 20 MEQ/WATER INJ PREMIX 300 ML IV SCH ×3 (07:56→20:24)
--- NOTE | 2019-12-24 08:15 | NUR ---
PT SEEN AND EXAMINED BY DR. FERRARI. WILL FOLLOW UP ON ORDERS.
--- NOTE | 2019-12-24 08:50 | NUR ---
DR. PIEDRA IN TO SEE PT. MADE AWARE OF KUB RESULT AND G-TUBE CONNECTED TO LOW SUCTION. WILL FOLLOW UP ON ANY NEW ORDERS.
--- NOTE | 2019-12-24 09:45 | NUR ---
PAGED DR. TIRADO REGARDING GI CONSULTATION. AWAITING CALL BACK.
[2019-12-24] MEDS: hydrALAZINE 20 MG/ML VIAL IVP PRN (09:54)
--- NOTE | 2019-12-24 10:02 | NUR ---
PT SEEN AND EXAMINED BY DR. AGGARWAL. UPDATES GIVEN ON PT'S CONDITION. NO NEW ORDER RECEIVED AT THIS TIME.
--- NOTE | 2019-12-24 12:00 | NUR ---
ASSISTED WOUND NURSE WITH STAPLE REMOVAL. NO S/SX OF BLEEDING OR INFECTION NOTED TO THE SITES. PT TOLERATED WELL. WILL CONTINUE TO MONITOR.
--- NOTE | 2019-12-24 12:06 | NUR ---
PT. ADMITTED WITH MULTIPLE SITES JUDE SURGICAL WOUNDS WITH UN-KNOW HISTORY OF ONSET DATE OF SURGERY. RIGHT UPPER CHEST 9 JUDE WITH MULTIPLE SCABS COVERED TO JUDE. 9 JUDE REMOVED NO S/S WOUND DEHISCENCE. MID ABDOMEN 28 JUDE AND [address], SUTURES AND FEW JUDE COVERED WITH SCABS. 28 JUDE REMOVED. MID ABDOMEN MIDDLE SUTURE LINES REMOVED WITH NO PROBLEM. DISTAL AND PROXIMAL SUTURES REMAIN. DRY DRESSING COVER AND ABDOMINAL BINDER APPLIED. POC DISCUSSED WITH PRIMARY RN.WILL RE-EVALUATE 5-7 DAYS.
--- NOTE | 2019-12-24 12:15 | NUR ---
NO CALL BACK FROM DR. TIRADO YET. PAGED AGAIN REGARDING NEW CONSULTATION.
--- NOTE | 2019-12-24 12:35 | NUR ---
DR. CARL IN TO SEE AND EXAMINE PT. PER DR. CARL, DR. PIEDRA TEXTED HIM TO SEE PT. CALLED DR. TIRADO'S OFFICE AND LEFT MESSAGE WITH BELLE TO CANCEL THE NEW GI CONSULTATION.
--- NOTE | 2019-12-24 12:45 | NUR ---
VERIFIED DISCONTINUATION OF VAP PROTOCOL GI PPX, PEPCID WITH DR. CARL. PER DR. CARL, RISKS OUTWEIGH THE BENEFITS AT THIS TIME DUE TO DIARRHEA AND ELECTROLYTE IMBALANCE.
[2019-12-24] MEDS: HYDRAGUARD CREAM TP PRN (13:00)
[2019-12-24] MEDS ORDERED: POTASSIUM CHLORIDE 20% 40 MEQ/15 ML UDC GT SCH (13:00)
[2019-12-24] MEDS: MORPHINE SULFATE 2 MG/ML SYR IVP PRN ×2 (13:11→22:43)
[2019-12-24] MEDS: DIPHENOXYLATE /ATROPINE 2.5 MG TAB PO PRN (13:11)
[2019-12-24] MEDS: metroNIDAZOLE 500 MG TAB PO SCH ×2 (13:11→16:06)
[2019-12-24] MEDS: VANCOMYCIN 750 MG in DEXTROSE 5% 250 ML IV SCH (14:05)
--- NOTE | 2019-12-24 15:11 | NUR ---
12/24/19 RD FOLLOW UP COMPLETED PLEASE REFER TO NUTRITION ASSESSMENT UNDER CARE ACTIVITY FOR ESTIMATED NUTRITIONAL NEEDS. 1. CONTINUE GLUCERNA 1.2 @ 20 ML/HR TOLERATED PER PHYSICIAN 2. GRADUALLY INCREASE TUBE FEEDING GOAL RATE OF GLUCERNA 1.2 TO 60 ML/HR WHEN PT IS MEDICALLY STABLE UNDER DOCTORS DISCRETION -THIS WILL PROVIDE 1440 ML OF VOLUME, 1728 KCAL AND 86 GM OF PROTEIN WHICH MEETS 100% OF ESTIMATED KCAL NEEDS 3. INCREASE FREE WATER FLUSH TO 90 ML Q4H WHEN MEDICALLY STABLE UNDER DOCTORS DISCRETION 4. RD TO FOLLOW-UP 2-3 DAYS, HIGH RISK ALEXANDRU RECINOS RD
--- NOTE | 2019-12-24 16:00 | NUR ---
VAP ORAL CARE GIVEN. TURNED AND REPOSITIONED. PRESSURE AREAS OFF LOADED. PT IS AFEBRILE. FLACC 0. RASS -2, ON FENTANYL DRIP. TUBE FEEDING STARTED ORDERED. SAFETY PRECAUTIONS IN PLACE. WILL CONTINUE TO MONITOR.
[2019-12-24] MEDS: SPIRONOLACTONE 25 MG TAB PO SCH (16:06)
--- NOTE | 2019-12-24 16:35 | NUR ---
REPORTED BLOOD CULTURE FINAL REPORT TO DR. LOOMIS. NO NEW ORDER RECEIVED.
--- NOTE | 2019-12-24 16:51 | NUR ---
CONTINUED TO MONITOR PT ON VENT WITH SETTINGS CHARTED BREATH SOUNDS PRESENT BILAT SXN PT WITH MIN AMT OFF WHITE SECS AMBU BAG AT BEDSIDE VENT PLUGGED INTO RED OUTLET
[2019-12-24] MEDS: INSULIN LISPRO SLIDING SCALE 100 UNITS/ML VIAL SUBQ PRN (17:39)
[2019-12-24] MEDS ORDERED: FUROSEMIDE 20 MG/2 ML VIAL IVP SCH (18:00)
--- NOTE | 2019-12-24 18:05 | NUR ---
VSS, FLACC 0, AFEBRILE. TUBE FEEDING RESIDUAL 10 ML AT THIS TIME. TURNED AND REPOSITIONED FOR COMFORT AND OFF LOAD PRESSURE AREAS. SAFETY PRECAUTIONS IN PLACE.
--- NOTE | 2019-12-24 19:21 | NUR ---
REPORT GIVEN TO REGIONAL TRUCK DRIVER RN FOR CONTINUITY OF CARE. PT IS IN STABLE CONDITION.
--- NOTE | 2019-12-24 19:30 | NUR ---
RECEIVED REPORT FROM DAYSHIFT NURSE AT PATIENTS BEDSIDE. PATIENT IS TRACH TO VENT, ACPC SETTINGS RATE 14, FI02 60%, PINSP 25, PEEP 10. RT AT BEDSIDE FOR BREATHING TREATMENT, DECREASED FI02 TO 40%. LUNG SOUNDS ARE SLIGHTLY WHEEZY AT RIGHT LOBES, OTHER LOBES CLEAR. RT CONFIRMED PATIENT TRYING TO TALK, NOT REALLY WHEEZING. BREATHING IS EVEN AND UNLABORED, EQUAL CHEST RISE. S1S2, SR ON MONITOR. PACEMAKER TO RT UPPER CHEST. LEFT SUBCLAVIAN CENTRAL LINE IN PLACE-TRIPLE LUMEN, INFUSING FENTANYL- 1.5 MCG/KG/HOUR (12/3 ML/HR) RASS -2, PATIENT OPENS EYES TO VOICE. DRY WEIGHT 82 KG. KCL 20 MEQ INFUSING, AND NS TKO @ 10ML/HR. ALL LUMENS PATENT, FLUSHED WITHOUT SYMPTOMS. PATIENT HAS TWO PREVIOUS SURGICAL INCISIONS, RIGHT UPPER CHEST-SOLAR ELECTRIC INSTALLER, AND ABDOMEN. ABDOMEN HAS PREVIOUSLY REMOVED SUTURES, SITE IS SLIGHTLY OPEN, DRESSING AND ABDOMINAL BINDER IN PLACE. ABDOMEN IS LARGE AND NONTENDER, WITH ACTIVE BOWEL SOUNDS. GTUBE IN PLACE TO TUBE FEEDING- GLUCERNA 1.2, 20 ML/HR, FWF 50 Q4H. NO RESIDUALS AT THIS TIME. RECTAL BAG IN PLACE, BROWN LIQUID STOOL NOTED. BELL CATHETER IN PLACE, CLEAR YELLOW URINE DRAINING BY GRAVITY. PATIENT HAS SCD's IN PLACE. PILLOWS USED TO OFFLOAD PRESSURE AREAS, SKIN IS WARM AND DRY, INTACT. SOME REDNESS NOTED AT PERINEAL/SACRAL AREA. BARRIER CREAM IN PLACE. RECTAL THERMOMETER IN PLACE-TEMP 98.0. PATIENT IS ORIENTED TO POC AND CALL LIGHT, WITHIN REACH. HOB 30 DEGREES. SIDERAILS UPx3, BED LOCKED AND IN LOWEST POSITION. WILL CONTINUE TO MONITOR.
[2019-12-24] MEDS ORDERED: KCL 20 MEQ/WATER INJ PREMIX 300 ML IV SCH (20:00)
--- NOTE | 2019-12-24 21:18 | NUR ---
DECREASED FIO2. SPO2 100%. NO SOB OR DISTRESS NOTED. WILL CONTINUE TO MONITOR.
--- NOTE | 2019-12-24 23:00 | NUR ---
PATIENT TURNED AND REPOSITIONED. HUNG A NEW BAG OF FENTANYL- 10.2ML/HR (1.5 MCG/KG/HR.) FLACC 8, FREQUENT FROWNS, RIGID EXTREMITIES, MOANING, PATIENT COMPLAINING OF PAIN-MOUTHS WORDS. ADMINISTERED IVP MORPHINE, WILL CONTINUE TO MONITOR.
[2019-12-25] VITALS (49 sets, daily range): BP systolic 112–166; BP diastolic 43–89
--- NOTE | 2019-12-25 00:10 | NUR ---
ACCUCHECK- SUGAR 189, GIVE 2 UNITS INSULIN. PROVIDED ORAL CARE, ENCOURAGED PATIENT TO DEEP COUGH WHILE SUCTIONING. VERY SMALL AMOUNT OF WHITE SECRETIONS NOTED, PATIENT HAS DIFFICULTY CLEARING SECRETIONS INDEPENDENTLY. SUCTIONED AT TRACH WELL. PATIENT DENIES PAIN. ALL NEEDS MET AT THIS TIME, RECTAL THERMOMETER STILL IN PLACE, 99.0.
[2019-12-25] MEDS: BLOOD GLUCOSE MONITORING 1 DEV DEV FS SCH ×4 (00:34→18:00)
[2019-12-25] MEDS: INSULIN LISPRO SLIDING SCALE 100 UNITS/ML VIAL SUBQ PRN ×4 (00:47→18:17)
--- NOTE | 2019-12-25 02:15 | NUR ---
LAST BAG OF KCL 20 MEQ COMPLETE (TOTAL 60 MEQ GIVEN), LINE FLUSHED AND SALINE LOCKED. PATIENTS O2SAT TRENDS IN 80's, CHANGED PULSE OX, O2 SAT BACK TO 100%. TURNED AND REPOSITIONED PATIENT.
--- NOTE | 2019-12-25 04:15 | NUR ---
PATIENT RESTING WELL IN BED. EYES CLOSED. ON FENTANYL DRIP 1.5MCG/KG/HOUR, RASS -2, PATIENT OPENS EYES TO VOICE, ABLE TO MOUTH SOME WORDS. TRACH TO VENT, FI02 BACK TO 40%, ACPC 14, PINSP 25, PEEP 10. HOB 30 DEGREES, FLACC 0.
[2019-12-25] MEDS: MEROPENEM 500 MG in NACL 0.9% 50 ML IV SCH ×3 (05:14→21:01)
--- NOTE | 2019-12-25 06:10 | NUR ---
PATIENT IRRITABLE, WILL NOT ALLOW RN TO GIVE ORAL CARE OR SPONGE BATH, PATIENT SHAKING HANDS AND HEAD. RN INSISTS ON CHANGING GOWN AND PATIENT KEEPS MOUTHING THE WORD "NO". CHARGE NURSE MADE AWARE. PATIENT IS STILL ON FENTANYL DRIP, RASS -2, DRY WEIGHT USED 82 KG, FENTANYL 1.5 MCG/KG/HOUR-12.3 ML/HR. PATIENT WILL OPEN EYES TO VOICE, DENIES ANY PAIN DENIES NEED FOR PAIN MEDS, PATIENT GRIMACES WITH TURNING AND POSITIONING. HOB 30 DEGREES, SIDERAILS UPx3, SAFETY ALARMS IN PLACE. WILL ENDORSE TO DAYSHIFT NURSE. ACCUCHECK 201, GAVE 4 UNITS HUMALOG PER SLIDING SCALE.
[2019-12-25] MEDS: fentaNYL 1 MG in NACL 0.9% 80 ML IV PRN (06:20)
[2019-12-25 06:58] LABS: BASOPHILS % (AUTO) 0.3 % (0.0-2.0); EOSINOPHILS # (AUTO) 0.4 K/uL (0-0.4); EOSINOPHILS % (AUTO) 5.3 % (0.0-4.0); HEMATOCRIT 22.8 % (36-48); HEMOGLOBIN 7.4 g/dL (12.0-16.0); LYMPHOCYTES # (AUTO) 0.7 K/uL (2.5-16.5); LYMPHOCYTES % (AUTO) 8.8 % (20.5-51.1); MEAN CORPUSCULAR HEMOGLOBIN 30 pg (27-31); MEAN CORPUSCULAR HGB CONC 33 g/dL (33-37); MEAN CORPUSCULAR VOLUME 92.4 fL (80-94); MONOCYTES # (AUTO) 0.8 K/uL (0.8-1.0); MONOCYTES % (AUTO) 9.5 % (1.7-9.3); NEUTROPHILS # (AUTO) 6.5 K/uL (1.8-7.7); NEUTROPHILS % (AUTO) 76.1 % (42.2-75.2); PLATELET COUNT (AUTO) 241 K/uL (140-450); RED BLOOD CELL COUNT(AUTO) 2.47 MIL/uL (4.20-5.40); RED CELL DISTRIBUTION WIDTH 16.5 % (11.6-13.7); WHITE BLOOD COUNT (AUTO) 8.5 K/uL (4.8-10.8)
--- NOTE | 2019-12-25 07:00 | NUR ---
RECIVED PT ON VENT WITH SETTINGS CHARTED SXN PT WITH MIN TO MOD AMT OFF WHITW SECS TRACH SITE SECURE AMBU BAG AT BEDSIDE VENT PLUGGED INTO RED OUTLET WILL CONTINUE TO MONITOR PT ON VENT
[2019-12-25 07:23] LABS: ALBUMIN 1.6 g/dL (3.4-5.0); ANION GAP 15.7 (8-16); CARBON DIOXIDE 20.7 mmol/L (21-32); CREATININE 1.3 mg/dL (0.6-1.3); POTASSIUM 4.4 mmol/L (3.5-5.1); TOTAL BILIRUBIN 0.6 mg/dL (0.0-1.0)
--- NOTE | 2019-12-25 07:30 | NUR ---
CHANGE OF SHIFT REPORT RECEIVED FROM SOAKING TANK WORKER RN AT BEDSIDE. PT OPENS EYES, FOLLOWS SIMPLE COMMANDS. TEMP 99.7F, DENIES PAIN. NORMAL SINUS RHYTHM ON MONITOR. TRACH TO VENT WITH SETTINGS AC/PC 14, FIO2 40%, PINSP 25, PEEP 10. LUNGS SOUND CLEAR BILATERALLY. NO SOB NOTED. CENTRAL LINE TLC TO LEFT SUBCLAVIAN ASYMPTOMATIC, PATENT AND INTACT, RUNNING NS TKO, FENTANYL DRIP AT 123 MCG/HR (1.5 MCG/KG/HR OR 12.3 ML/HR). DRY WEIGHT 82 KG. ABDOMEN ROUND, SOFT, NONTENDER WITH HYPOACTIVE BOWEL SOUNDS. ABDOMINAL BINDER IN PLACE. G-TUBE IN PLACE, ON TUBE FEEDING GLUCERNA 1.2 AT 20 ML/HR WITH FWF 50 ML Q4H. NO RESIDUALS NOTED. BELL CATH IN PLACE DRAINING CLEAR YELLOW URINE TO GRAVITY. HEALED INCISIONS NOTED TO RIGHT CHEST AND ABDOMEN. SKIN IS DRY AND WARM TO TOUCH. RECTAL BAG INTACT, DRAINING LOOSE STOOL TO GRAVITY DRAINAGE BAG. REDNESS TO PERINEAL AREA NOTED. PACEMAKER AT RIGHT CHEST. CAP REFILL < 2 SEC. PULSES PALPABLE TO ALL EXTREMITIES. HOB AT 30 DEGREES. BED IN LOWEST POSITION LOCKED. CALL LIGHT WITHIN REACH. NO SIGNS OF DISTRESS NOTED. WILL CONTINUE TO MONITOR.
--- NOTE | 2019-12-25 08:00 | NUR ---
RECEIVED ORDER FROM TO TITRATE PEEP TO MAINTAIN SAT AT OR ABOVE 92%. TITRATED PATIENT'S PEEP TO 7.
--- NOTE | 2019-12-25 08:00 | NUR ---
PT SEEN AND EXAMINED BY DR. PIEDRA. WILL FOLLOW UP WITH ANY NEW ORDERS.
[2019-12-25 08:18] LABS: FOLIC ACID 14.3 ng/mL (>3.0)
[2019-12-25] MEDS: MORPHINE SULFATE 2 MG/ML SYR IVP PRN ×2 (09:37→21:11)
[2019-12-25] MEDS: SPIRONOLACTONE 25 MG TAB PO SCH (09:37)
[2019-12-25] MEDS: DIPHENOXYLATE /ATROPINE 2.5 MG TAB PO PRN (09:43)
--- NOTE | 2019-12-25 11:10 | NUR ---
RECEIVED CALL FROM DR. CARL. UPDATES GIVEN ON PT'S CONDITION. ORDERS RECEIVED.
--- NOTE | 2019-12-25 12:00 | NUR ---
TUBE FEEDING NO RESIDUALS, RATE INCREASED TO 30ML/HR PER DR. CARL. VAP ORAL CARE GIVEN. TURNED AND REPOSITIONED. OFF LOADED PRESSURE AREAS.
--- NOTE | 2019-12-25 13:00 | NUR ---
WATERY DIARRHEA SUBSIDED AND STOOL TURNED PASTY. RECTAL BAG REMOVED. CLEANED AND APPLIED BARRIER CREAM TO REDNESS AROUND SACRAL AND PERINEAL AREA, SKIN INTACT.
[2019-12-25] MEDS: hydrALAZINE 20 MG/ML VIAL IVP PRN (14:07)
[2019-12-25] MEDS: LORazepam 2 MG/ML VIAL IVP PRN ×2 (14:20→23:24)
[2019-12-25] MEDS ORDERED: FUROSEMIDE 20 MG/2 ML VIAL IVP SCH (15:15)
--- NOTE | 2019-12-25 15:15 | NUR ---
PT SEEN BY DR. CARL. UPDATES GIVEN ON PT'S CONDITION. WILL FOLLOW UP WITH ANY NEW ORDERS.
--- NOTE | 2019-12-25 16:05 | NUR ---
VAP ORAL CARE GIVEN. TURNED AND REPOSITIONED. TOLERATING TUBE FEEDING, RESIDUALS 5 ML. BELL DRAINING YELLOW URINE TO GRAVITY. SAFETY PRECAUTIONS IN PLACE. WILL CONTINUE TO MONITOR.
[2019-12-25] MEDS ORDERED: Z-GUARD PASTE TP PRN (16:15)
--- NOTE | 2019-12-25 18:00 | NUR ---
TURNED AND REPOSITIONED PT. NO DIARRHEA NOTED. Z-GUARD APPLIED TO PERINEAL AND SACRAL REDNESS. SKIN INTACT. OPTIFORM APPLIED TO SACROCOCCYX FOR PROTECTION.
--- NOTE | 2019-12-25 18:02 | NUR ---
CONTINUED TO MONITOR PT ON VENT WITH SETTINGS CHARTED BREATH SOUNDS PRESENT BILAT AMBU BAG AT BEDSIDE VENT PLUGGED INTO RED OUTLET
--- NOTE | 2019-12-25 19:01 | NUR ---
RCV'D PT ON MECHANICAL VENTILATION WITH CHARTED SETTINGS. PT IS TRACED WITH FABIANLEY 6. TRACH IS IN PLACE AND SECURED. VENT CONNECTED TO RED OUTLET. ALARMS AUDIBLE. AMBU BAG AT BEDSIDE. NO SOB OR DISTRESS NOTED. DECREASED PEEP TP 6. SPO2 IS 100%. WILL CONTINUE TO MONITOR.
--- NOTE | 2019-12-25 19:20 | NUR ---
REPORT GIVEN TO GUN REPAIR CLERK RN FOR CONTINUITY OF CARE. PT IS IN STABLE CONDITION.
--- NOTE | 2019-12-25 19:25 | NUR ---
RECEIVED REPORT FROM DAYSHIFT NURSE AT PATIENTS BEDSIDE. NO SIGNS OF DISTRESS NOTED, PATIENT HAS EYES OPEN, ABLE TO MOUTH SOME WORDS, FOLLOWS SOME SIMPLE COMMANDS. TRACH TO VENT, ACPC SETTINGS- FI02 30%, PINSP-25, RATE 14, PEEP 7. LUNG SOUNDS HAVE SOME RHONCHI ON EXPIRATORY. SMALL COUGH NOTED, NONPRODUCTIVE. BREATHING IS UNLABORED, SATURATIONS 98%. S1S2, SR ON MONITOR. PACEMAKER IN PLACE TO RIGHT UPPER CHEST, THERE IS A PREVIOUS SURGICAL INCISION FOR OLD PACEMAKER PLACEMENT, INCISION IS HEALING. LEFT SUBCLAVIAN CENTRAL LINE IN PLACE, ALL LUMENS ARE FLUSHED AND PATENT, GOOD BLOOD RETURN. ONE PORT HAS NS @ TKO WITH 5ML/HR. ABDOMEN IS VERY LARGE, NONTENDER, RIGHT UPPER ABDOMEN HAS PREVIOUS INCISION-HEALING. ABDOMINAL BINDER IN PLACE. ACTIVE BOWEL SOUNDS. GTUBE IN PLACE CONNECTED TO TUBE FEEDING-GLUCERNA 1.2 @ 30ML/HR, FWF 50ML Q4H. BELL CATHETER IN PLACE, YELLOW URINE NOTED WITH SOME SEDIMENT. SKIN IS WARM AND DRY, AFEBRILE- 97.5 VIA TEMPORAL ARTERY SCAN. SOME REDNESS AT PERINEAL AND SACRAL AREA. OPTIFOAM DRESSING IN PLACE AND BARRIER CREAM APPLIED. SCD's IN PLACE. HOB 30 DEGREES, BED IS LOCKED AND IN LOWEST POSITION, SIDERAILS UPx3, PATIENT UPDATED ON CAREPLAN AND ORIENTED TO CALL LIGHT AND CALL LIGHT WITHIN REACH. TURNED AND REPOSITIONED PATIENT. WILL CONTINUE TO MONITOR.
--- NOTE | 2019-12-25 20:30 | NUR ---
DECREASED PEEP TO 5. RN AWARE. NO WOB OR DISTRESS NOTED. SPO2 100%. WILL CONTINUE TO MONITOR.
--- NOTE | 2019-12-25 21:00 | NUR ---
IVP MORPHINE EFFECTIVE, FLACC 0
--- NOTE | 2019-12-25 21:10 | NUR ---
PATIENT IS CRYING AND COMPLAINING OF PAIN, PATIENT KEEPS REACHING FOR RN's HANDS AND WANTS RN TO HOLD PATIENTS HAND AND STAY WITH HER. PATIENT HAS TEARS IN HER EYES, WHEN ASKED ABOUT PAIN PATIENT NODS YES. WILL ADMINISTER IVP MORPHINE. AND TURNED AND REPOSITIONED FOR COMFORT.
--- NOTE | 2019-12-25 23:25 | NUR ---
PATIENT BECOMING RESTLESS, RESPIRATIONS INCREASING, BLOOD PRESSURE INCREASING. PATIENT IS INCONSOLABLE, REACHING ARMS OVERHEAD AND REACH TOWARDS TRACH AND TUBE. REORIENTED PATIENT. INEFFECTIVE. IVP ATIVAN FOR AGITATION. SAFETY PRECAUTIONS IN PLACE. CONTINUE CLOSE MONITORING.
[2019-12-26] VITALS (17 sets, daily range): BP systolic 122–199; BP diastolic 60–144
--- NOTE | 2019-12-26 00:10 | NUR ---
PATIENT TURNED AND POSITIONED, OFFLOADED PRESSURE SITES. PROVIDED ORAL CARE. SCD's IN PLACE, SIDERAILS UP x3, HOB 30 DEGREES. STILL ON ACPC MODE ON VENT. SAFETY ALARMS IN PLACE
--- NOTE | 2019-12-26 00:30 | NUR ---
ACCUCHECK COMPLETE,289, GAVE 4 UNITS PER SLIDING SCALE, PATIENT TOLERATED WELL. SKIN IS WARM AND DRY, AFEBRILE, TEMP 97.8. NO CHANGES IN CONDITION.
--- NOTE | 2019-12-26 01:10 | NUR ---
PATIENT RESTING CALMLY, EYES CLOSED. BREATHING IS EVEN AND UNLABORED. NO SIGNS OF DISTRESS NOTED.
[2019-12-26] MEDS: INSULIN LISPRO SLIDING SCALE 100 UNITS/ML VIAL SUBQ PRN ×4 (01:19→19:00)
--- NOTE | 2019-12-26 02:23 | NUR ---
PATIENT SLIGHTLY CONFUSED, VENT KEEPS ALARMING, PATIENT WAS TRYING TO PULL OUT TRACHEOSTOMY. HANDS ARE SLIGHTLY CONTRACTED, NOT SURE IF IT WAS ACCIDENTAL. PATIENT IS REORIENTED AND REPOSITIONED, PATIENT APPEARS MORE CALM. DENIES PAIN, ORIENTED TO CALL LIGHT, WITHIN REACH. PATIENT NODS HEAD YES TO UNDERSTANDING CARE PLAN.
--- NOTE | 2019-12-26 04:00 | NUR ---
BLOOD PRESSURE TRENDING HIGH, SBP ABOVE 260, IN 170's-180's, DESPITE CHANGING CUFF AND SWITCHING SITES. IV PUSH HYDRALAZINE ORDERED. WILL CONTINUE TO MONITOR AND REASSESS.
[2019-12-26] MEDS: MEROPENEM 500 MG in NACL 0.9% 50 ML IV SCH ×3 (04:06→20:11)
[2019-12-26] MEDS: hydrALAZINE 20 MG/ML VIAL IVP PRN ×3 (04:07→22:00)
--- NOTE | 2019-12-26 04:40 | NUR ---
PATIENT's BREATHING IS INCREASING AND PATIENT AWAKE, SLIGHTLY CONFUSED, KEEPS REACHING FOR RN AND GRABBING HANDS AND REACHING FOR TV. PATIENT KEEPS DENYING PAIN BUT VERY FREQUENT FROWNING AND CHANGES IN VITAL SIGNS, TACHYPNEIC, TACHYCARDIC, HIGH BLOOD PRESSURE. CALLED RT TO ASSESS PATIENT AND GAVE IVP MORPHINE.
[2019-12-26] MEDS: MORPHINE SULFATE 2 MG/ML SYR IVP PRN ×3 (04:51→17:40)
--- NOTE | 2019-12-26 05:11 | NUR ---
PROVIDED BELL CARE, SKIN CARE, APPLIED BARRIER CREAM TO INCONTINENT DERMATITIS-SLIGHT REDNESS NOTED TO SACRUM AND PERINEAL AREA. ALL NEEDS MET AT THIS TIME, CONTINUE TO MONITOR CLOSELY FOR BLOOD PRESSURE AND OTHER SIGNS AND SYMPTOMS OF PAIN. Addendum: 12/26/19 at 0514 by Yumiko Doherty RN PROVIDED ORAL CARE.
--- NOTE | 2019-12-26 05:27 | NUR ---
PATIENT IS CONTINUING TO BECOME MORE TACHYPNEIC. SMALL COUGH NOTED, NONPRODUCTIVE, INCREASED OXYGEN TO 100 % AND SUCTIONED AT TRACH, SMALL AMOUNT OF WHITE SECRETIONS NOTED. RT MADE AWARE BUT NO CHANGES TO VENT SETTINGS. SATURATIONS WNL BUT PATIENT APPEARS TO BE IN DISTRESS. WILL TELL RT TO COME REASSESS.
[2019-12-26] MEDS: cloNIDine 0.1 MG TAB GT PRN ×3 (05:33→19:10)
--- NOTE | 2019-12-26 06:00 | NUR ---
SPOKE WITH RT TO MAKE AWARE OF SAME SYMPTOMS-HIGH RESPIRATIONS, AND VENT ALARMING. RT STATES THE SATURATIONS ARE FINE AND BELIEVES IT IS THE PAIN THAT IS CAUSING PATIENT TO BREATH OVER VENT. NO CHANGES TO VENT SETTINGS.
--- NOTE | 2019-12-26 06:15 | NUR ---
SPOKE WITH DR. ORTIZ, ENDORSED PATIENTS CONDITION AND EVENTS STARTING AT 0400, BLOOD PRESSURE HIGH-SBP> 180, GAVE HYDRALAZINE, AT 0451, STILL HIGH, STILL APPEARS RESTLESS, GAVE MORPHINE. 05, PATIENT IS TACHYCARDIC, TACHYPNEIC, AND FROWNING, GAVE CLONIDINE VIA GTUBE. PATIENT IS NOW SBP>200. MD AWARE, NO NEW CHANGES, CONFIRMS TO NOT PUSH ANOTHER HYDRALAZINE, AND NO CHANGES TO VENT, CONTINUE TO MONITOR. WILL PUSH ATIVAN IF PATIENT BECOMES MORE AGITATED. CHARGE NURSE AWARE.
[2019-12-26] MEDS: BLOOD GLUCOSE MONITORING 1 DEV DEV FS SCH ×5 (06:29→23:59)
[2019-12-26 06:42] LABS: ANION GAP 14.9 (8-16); CARBON DIOXIDE 21.4 mmol/L (21-32); POTASSIUM 3.3 mmol/L (3.5-5.1)
[2019-12-26] MEDS: LORazepam 2 MG/ML VIAL IVP PRN ×2 (06:57→23:59)
[2019-12-26 07:20] LABS: CREATININE 1.1 mg/dL (0.6-1.3)
--- NOTE | 2019-12-26 07:30 | NUR ---
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 ON O2 AT 2L VIA NC, SR ON COMPLIANCE COUNSEL, CAP REFILL <2 SEC, NONPITTING EDEMA TO ROSA. ARMS NOTED, SOFT ABDOMEN WITH ACTIVE BOWEL SOUNDS, CONTINENT WITH B&B'S, ABLE TO MOVE ALL EXTREMITIES, LEFT AKA NOTED, SKIN IS WARM AND DRY TO TOUCH, DRY SCAB AND DISCOLORATION NOTED TO ALL OVER THE BODY. AV SHUNT TO LEFT ARM, CENTRAL LINE TO LIJ, TLC, PATENT AND KVO. EXPLAINED POC TO PATIENT TODAY, PATIENT VERBALIZED UNDERSTANDING, HOB ELEVATED TO 30 DEGREES, SAFETY MEASURES IN PLACE, WILL CONTINUE TO MONITOR. Addendum: 12/26/19 at 1336 by Martine Ambrosio RN WRONG PATIENT'S NOTE
--- NOTE | 2019-12-26 08:00 | NUR ---
RECEIVED PT TRACH WITH SHILEY SIZE 6 AND SECURED WITH TRACH TIE. PT ON VENT SETTINGS ORDERED; VENT PLUGGED IN RED OUTLET; BVM AT BEDSIDE; HOB > 30; AND ALARMS SET AND AUDIBLE. SX SMALL AMOUNT OF YELLOW THICK SECRETIONS. SP02 OF 98% AND A COARSE BREATH SOUNDS. WILL CONTINUE TO MONITOR PT.
--- NOTE | 2019-12-26 09:00 | NUR ---
SCHEDULED MEDICATION GIVEN, MEDICATION INDICATION AND SIDE EFFECTS EDUCATED TO PATIENT, PATIENT VERBALIZED UNDERSTANDING IT, BREAKFAST OFFERED, 10% TAKEN, STATED ABLE TO EAT REGULAR FOOD NOW, DR. FRENCH MADE AWARE. Addendum: 12/26/19 at 1336 by Martine Ambrosio RN WRONG PATIENT'S NOTE
[2019-12-26] MEDS: SPIRONOLACTONE 25 MG TAB PO SCH (09:45)
[2019-12-26] MEDS: FUROSEMIDE 20 MG/2 ML VIAL IVP SCH (09:45)
[2019-12-26] MEDS: ACETAMINOPHEN 650 MG/20.3 ML UDC GT PRN (10:05)
--- NOTE | 2019-12-26 10:32 | NUR ---
MID ABDOMINAL SURGICAL WOUND TO SLIT 1.5X0.2CM DEPTH LESS THAN 0.1CM OOZING OUT SMALL AMOUNT THICK YELLOW DRAINAGE, NO ODOR, CLEANSE WITH NS. PAT DRY AND APPLY ISLAND DRESSING. GT SECURED WITH SUTURES, GT [id number] SKIN DRY BROWN SCAB WITH SMALL AMOUNT BROWN COLOR DRAINAGE,AND CONTINUE TO OOZING OUT, NO ODOR. CLEANSE WITH NS, DRY DRESSING APPLY. POC DISCUSSED WITH PRIMARY RN AND CHARGE NURSE.CALL TO DR. PIEDRA POC DISCUSSED, ALL JUDE REMOVED, ONE SUTURE LEFT TO PROXIMAL SITE OF MID ABD SURGICAL WOUND. PER DR. PIEDRA, HE WILL REQUEST SURGEON TO CONSULT AND ASKED TO HAVE TO EVALUATE. PRIMARY RN NOTIFIED OF ABOVE MESSAGE
--- NOTE | 2019-12-26 12:08 | NUR ---
GT RESIDUAL <5ML, RATE INCREASED TO 40ML/HR
[2019-12-26] MEDS: GAUZE TP SCH (13:00)
--- NOTE | 2019-12-26 13:20 | NUR ---
PER DR. AGGARWAL TO KEEP PATIENT IN ICU FOR ONE MORE DAY TO MONITOR BP AND RR UNTIL MORE STABLE CAN TRANSFER TO TELE.
[2019-12-26] MEDS ORDERED: KCL 20 MEQ/WATER INJ PREMIX 200 ML IV SCH (13:30)
--- NOTE | 2019-12-26 13:55 | NUR ---
12/26/19 RD FOLLOW UP COMPLETED PLEASE REFER TO NUTRITION ASSESSMENT UNDER CARE ACTIVITY FOR ESTIMATED NUTRITIONAL NEEDS. 1. CONTINUE GLUCERNA 1.2 @ 50 ML/HR TOLERATED PER PHYSICIAN -THIS PROVIDES 1200 ML IN VOLUME, 1440 KCALS, AND 72 GM OF PROTEIN. THIS IS MEETING 91% OF PTS KCAL NEEDS AND 96% OF PTS PROTEIN NEEDS. 2. RD TO FOLLOW-UP 2-3 DAYS, HIGH RISK ALEXANDRU RECINOS RD
--- NOTE | 2019-12-26 19:25 | NUR ---
RECEIVED REPORT FROM DAYSHIFT NURSE AT PATIENTS BEDSIDE. PATIENT HAS EYES OPENED, MOUTHS WORDS AND MAKES NEEDS KNOWN. TRACH TO VENT, ACPC- FI02 28%, PINSP 25 RATE 14 PEEP 5. LUNG SOUNDS CLEAR, BREATHING IS EVEN AND UNLABORED. SMALL COUGH NOTED. SCANT AMOUNT OF WHITE SECRETIONS NOTED. S1S2, SR ON MONITOR, RIGHT UPPER CHEST PACEMAKER IN PLACE. OLD SURGICAL INCISION NOTED AT RIGHT UPPER CHEST, HEALED.LEFT SUBCLAVIAN CENTRAL LINE, ALL LUMENS ARE PATENT WITHOUT SYMPTOMS, NS @ TKO 5ML/HR. ABDOMEN IS LARGE, NONTENDER, ACTIVE BOWEL SOUNDS, SMALL PREVIOUS SURGICAL INCISION NOTED AT MIDLINE, HEALED. ABDOMINAL BINDER IN PLACE. GTUBE IN PLACE WITH TUBE FEEDING-GLUCERNA 1.2 @ 40ML/HR. SOME LEAKAGE NOTED AT GTUBE SITE, REPLACED SPLIT GAUZE. BELL IN PLACE, DRAINING BY GRAVITY, YELLOW URINE NOTED. SCD's IN PLACE. HOB 30 DEGREES, ORIENTED TO TREATMENT PLAN, CALL LIGHT WITHIN REACH. SIDERAILS UPx3. WILL CONTINUE TO MONITOR.
--- NOTE | 2019-12-26 20:20 | NUR ---
PATIENT TURNED AND REPOSITIONED, TOLERATED WELL. PROVIDED ORAL CARE. SUCTIONED SMALL AMOUNT OF WHITE SECRETIONS. PATIENT AWAKE AND ALERT. BLOOD PRESSURE HIGH, WILL ADMINISTER PRN MEDICATIONS.
--- NOTE | 2019-12-26 22:00 | NUR ---
BLOOD PRESSURE REMAINS HIGH, SBP>190. PRN ORDER FOR HYDRALAZINE 10 MG GIVEN, PATIENTS BLOOD PRESSURE BACK DOWN, SBP 150's. AFTER 20 MINS, BLOOD PRESSURE BACK UP IN 170's. REPOSITIONED PATIENT FOR COMFORT AND OFFLOADED PRESSURE SITES, SCD's IN PLACE, WILL CONTINUE TO MONITOR.
[2019-12-27] VITALS (16 sets, daily range): BP systolic 102–185; BP diastolic 61–90
--- NOTE | 2019-12-27 00:05 | NUR ---
PATIENT IS AWAKE AND HAS EYES OPEN, SHE IS FROWNING AND BLOOD PRESSURE IS ELEVATED. SLIGHTLY TACHYPNEIC WITH RESPIRATIONS IN 30's. PATIENT HAS HANDS REACHING IN AIR TRYING TO GRAB RN. IV PUSH ATIVAN INDICATED. PROVIDED ORAL CARE AND REPOSITIONED. SKIN IS WARM AND DRY, AFEBRILE. ORIENTED PATIENT TO POC AND ROOM. WILL CONTINUE TO MONITOR.
[2019-12-27] MEDS: INSULIN LISPRO SLIDING SCALE 100 UNITS/ML VIAL SUBQ PRN ×4 (00:13→17:45)
--- NOTE | 2019-12-27 00:30 | NUR ---
RESIDUALS CHECKED AT GTUBE, LESS THAN 10 ML. INCREASE TUBE FEEDING RATE TO 45ML/HR, GOAL IS 50ML.
--- NOTE | 2019-12-27 00:35 | NUR ---
PATIENT STABLE, BLOOD PRESSURE SBP-134, RESTING WELL, FLACC 0. ALL OTHER VITALS WNL LIMITS. BED LOCKED AND IN LOW POSITION, CALL LIGHT WITHIN REACH
--- NOTE | 2019-12-27 02:15 | NUR ---
PATIENT RESTING WELL, EYES CLOSED. FLACC 0. BREATHING IS EVEN AND UNLABORED. VENT SETTINGS SAME START OF SHIFT. ALL VITALS WITHIN NORMAL LIMITS. SAFETY ALARMS IN PLACE. WILL CONTINUE TO MONITOR.
--- NOTE | 2019-12-27 04:30 | NUR ---
PROVIDED PATIENT WITH ORAL CARE, PERINEAL CARE, BELL CARE AND SPONGE BATH, TOLERATED WELL. REMOVED ABDOMINAL BINDER TO CLEAN AT GTUBE SITE. SCD's IN PLACE. HOB 30 DEGREES. PATIENT DENIES PAIN. REDNESS NOTED AT SACRAL AND PERINEAL AREAS. SKIN INTACT. PREVIOUS SURGICAL INCISIONS AT RIGHT UPPER CHEST AND MIDLINE ABDOMINAL ARE HEALING. ABDOMINAL INCISION IS SLIGHTLY OPEN. REAPPLIED ABDOMINAL BINDER. CALL LIGHT WITHIN REACH.
[2019-12-27] MEDS: MEROPENEM 500 MG in NACL 0.9% 50 ML IV SCH ×3 (04:37→21:18)
[2019-12-27] MEDS: BLOOD GLUCOSE MONITORING 1 DEV DEV FS SCH ×3 (06:42→18:05)
--- NOTE | 2019-12-27 07:25 | NUR ---
BEDSIDE REPORT RECEIVED FROM SPOT WELDER NURSE, PT AWAKE, ON TRACH TO VENT FIO2 28%, PIP 25, PEEP 5, RR 14, BREATH SOUNDS DIMINISHED, EQUAL CHEST EXPANSION, SUCTIONED SMALL AMT OF WHITE SECRETION, ORAL CARE DONE, NSR ON MOITOR, BP 178/79, HR 83, RR 28, O2SAT 99%, PT MOUTHES PAIN, WILL MEDICATE, ABD SOFT, ROUND, LARGE, GT FEED ONGOING AT 45ML/HR, CENTRAL LINE TO LEFT SUBCLAVIAN, TKO AT 5ML/HR WITH NS, SITE WNL, BELL DRAINING, SCD IN PLACE, ALL SAFETY MEASURES IN PLACE, POC REVIEWED, WILL CONTINUE TO MONITOR.
[2019-12-27] MEDS: MORPHINE SULFATE 2 MG/ML SYR IVP PRN ×2 (07:42→15:25)
[2019-12-27] MEDS: hydrALAZINE 20 MG/ML VIAL IVP PRN (07:42)
--- NOTE | 2019-12-27 09:30 | NUR ---
CENTRAL LINE DRESSING AND CAPS CHANGED PER PROTOCOL BY BANDAR LYNNE.
[2019-12-27] MEDS: FUROSEMIDE 20 MG/2 ML VIAL IVP SCH (09:34)
[2019-12-27] MEDS: SPIRONOLACTONE 25 MG TAB PO SCH (09:35)
--- NOTE | 2019-12-27 09:55 | NUR ---
PERICARE, BELL CARE, WOUND CARE, BED BATH PRVIDED, LINEN, GOWN CARON., SMALL SOFT BROWN BM X1
--- NOTE | 2019-12-27 10:45 | NUR ---
DR MARTINEZ AT BEDSIDE FOR EVAL, NOTIFIED OF ELEVATED BP AND NEED FOR PRN MEDS, NEW MEDS ORDERED, OK TO TRANSFER TO TELE.
[2019-12-27] MEDS: GAUZE TP SCH (11:50)
[2019-12-27] MEDS ORDERED: CLINICAL MONITORING MC PRN (12:10)
[2019-12-27] MEDS: LORazepam 2 MG/ML VIAL IVP PRN (12:44)
--- NOTE | 2019-12-27 15:30 | NUR ---
SMALL SKIN TEAR NOTED IN THE SACRAL INCONTINENT DERMATITIS, PHOTO TAKEN
--- NOTE | 2019-12-27 15:54 | NUR ---
PT NOT IN ANY DISTRESS AT THIS TIME. PT SUCTIONED OBTAINED SMALL AMOUNT OF THICK YELLOW SECRETIONS, AIRWAY IS PATENT AND TRACH IS SECURE. WILL CONTINUE TO MONITOR.
[2019-12-27] MEDS: cloNIDine 0.1 MG TAB GT PRN (16:35)
--- NOTE | 2019-12-27 17:08 | NUR ---
PT REMAINS ON DOCUMENTED VENT SETTINGS. TRACH IS SECURE WITH A PATENT AIRWAY. PT NOT IN ANY DISTRESS AT THIS TIME. VENT ALARMS REMAIN ON AND FUNCTIONING.
--- NOTE | 2019-12-27 17:15 | NUR ---
SMALL BM X1, PERICARE DONE, REPOSITIONED.
--- NOTE | 2019-12-27 19:00 | NUR ---
RECEIVED REPORT FROM DAY SHIFT NURSE, PT AWAKE, NON VERBAL, ABLE TO SOMETIMES FOLLOW SIMPLE COMMANDS. BREATHING EVENLY AND UNLABORED, ON TRACH TO VENT ACPC FIO2 28% PEEP 5 RATE 14, NO SIGNS OF ACUTE DISTRESS. FLACC 0, SKIN IS WARM AND DRY, NOTED SACRAL OPEN WOUND, DRESSING CHANGED, KEPT CLEAN AND DRY. OFFLOAD TO PRESSURE AREAS, TURN AND REPOSITIONED. WITH G TUBE FEEDING GLUCERNA AT 50CC/HR. RESIDUAL MINIMAL 5-10CC. HOB ELEVATED AT LEAST 30 DEGREES, BELL CATHETER IN PLACE, DRAINING CLEAR YELLOW URINE. TRACH/ORAL CARE WITH SUCTION PERFORMED. ALL NEEDS ANTICIPATED, SAFETY PRECAUTIONS MAINTAINED. CALL LIGHT WITHIN REACH.
--- NOTE | 2019-12-27 21:00 | NUR ---
DUE MEDS GIVEN, TOLERATED WELL, TURNED AND REPOSITIONED, KEPT CLEAN AND DRY. CONTINUE TO MONITOR.
[2019-12-27] MEDS: levETIRAcetam 500 MG TAB GT SCH (21:17)
[2019-12-27] MEDS: CARVEDILOL 12.5 MG TAB PO SCH (21:18)
--- NOTE | 2019-12-27 23:30 | NUR ---
TURNED AND REPOSITIONED, OFFLOAD TO PRESSURE AREAS, KEPT CLEAN AND DRY. CONTINUE TO MONITOR.
[2019-12-28] VITALS (15 sets, daily range): BP systolic 120–182; BP diastolic 54–75
[2019-12-28] MEDS: INSULIN LISPRO SLIDING SCALE 100 UNITS/ML VIAL SUBQ PRN ×5 (00:05→23:38)
--- NOTE | 2019-12-28 03:00 | NUR ---
PT TURNED, CHANGED AND REPOSITIONED, PROVIDED ORAL CARE AND SUCTION. CONTINUE TO MONITOR.
[2019-12-28] MEDS: MEROPENEM 500 MG in NACL 0.9% 50 ML IV SCH ×3 (05:07→20:32)
[2019-12-28] MEDS: BLOOD GLUCOSE MONITORING 1 DEV DEV FS SCH ×5 (05:07→23:36)
--- NOTE | 2019-12-28 06:58 | NUR ---
PT RESTING AND ASLEEP IN BED, NO SIGNS OF ACUTE DISTRESS, FLACC 0. WILL ENDORSE TO ONCOMING DAY SHIFT NURSE FOR CONTINUITY OF CARE.
--- NOTE | 2019-12-28 07:30 | NUR ---
BEDSIDE REPORT RECEIVED FROM TAKER OFF DRYING KILN NURSE, PT AROUSES TO VOICE, SLEEPY, FLACC 0, RESP EVEN TRACH TO VENT BS CLEAR, FIO2 28% PIP 24, PEEP 5, RR 14, SR ON MONITOR, VITALS STABLE, LEFT SUBCLAV CENTRAL LINE IN PLACE, TKO WITH NS, SITE WNL, GT FEED ON GOING AT 50ML/HR FWF 50ML/4H, ABD LARGE SOFT, NON DISTENDED, +BS IN ALL 4Q, BELL IN PLACE, DRAINING CLEAR YELLOW URINE, SCDS IN PLACE, REPOSITIONED, POC REVIEWED, ALL SAFETY MEASURES IN PLACE, WILL CONTINUE TO MONITOR.
[2019-12-28] MEDS: levETIRAcetam 500 MG TAB GT SCH ×2 (09:09→20:41)
[2019-12-28] MEDS: CARVEDILOL 12.5 MG TAB PO SCH ×2 (09:09→20:41)
[2019-12-28] MEDS: SPIRONOLACTONE 25 MG TAB PO SCH (09:10)
[2019-12-28] MEDS: LEVOTHYROXINE 0.075 MG TAB PO SCH (09:10)
[2019-12-28] MEDS ORDERED: MORPHINE SULFATE 2 MG/ML SYR ONE (09:13)
[2019-12-28] MEDS ORDERED: MERO500V13 IV (09:19)
[2019-12-28] MEDS ORDERED: CLON0.1T42 GT (09:19)
[2019-12-28] MEDS: MORPHINE SULFATE 2 MG/ML SYR IVP PRN (09:20)
--- NOTE | 2019-12-28 09:35 | NUR ---
DR GRANGER AT BEDSIDE, MORPHINE ORDER RENEWED, ORDER FOR TRANSFER TO SNF RECEIVED
--- NOTE | 2019-12-28 09:51 | NUR ---
REPOSIITONED,PERICAREDONE.
--- NOTE | 2019-12-28 10:08 | NUR ---
CALLED [facility] FOR A AVAILABLE BED, NO BED IS AVAILABLE AT THIS TIME PER RN, WILL ENDORSE TO CALL BACK TOMORROW.
[2019-12-28] MEDS: hydrALAZINE 20 MG/ML VIAL IVP PRN (10:51)
--- NOTE | 2019-12-28 11:01 | NUR ---
PT'S JAIMIE AT BEDSIDE, POC DISCUSSED, INFORMED OF ORDER FOR TRANSFER, BUT NO BED AT [facility] [place], HE WANTS TO SPEAK WITH , WILL GIVE MESSAGE, 6U INSULIN GIVNE FOR 254, HYDRALAZINE GIVEN FOR INREASED BP
--- NOTE | 2019-12-28 11:39 | NUR ---
PT NOT IN ANY DISTRESS AT THIS TIME TOLERATING VENT SETTINGS WELL. WILL CONTINUE TO MONITOR.
[2019-12-28] MEDS: GAUZE TP SCH (13:14)
--- NOTE | 2019-12-28 13:45 | NUR ---
PT RESTING QUIETLY IN NO ACUTE DISTRESS, PT APPEARS COMFORTABLE, POINTS TO TRACH SITE AND MOUTHES PAIN. NO ABNORMALITY NOTED AT TRACH SITE, RT CALLED FOR EVAL.
--- NOTE | 2019-12-28 15:45 | NUR ---
LOOSE BMX1, PERICARE DONE, LINEN CHANGED, GOWN CHANGED, REPOSITIONED
--- NOTE | 2019-12-28 17:30 | NUR ---
RE POSITIONED, PT RESTING QUIETLY IN NO ACUTE DISTRESS, GT FEED ONGOING, CENTRAL LINE AT TKO, SITES WNL, BELL DRAINING WELL, TRACH TO VENT SETTING UNCHANGED, VITALS STABLE ON MONITOR, NO NEEDS AT THIS TIME, WILL CONTNUE TO MONITOR.
--- NOTE | 2019-12-28 19:00 | NUR ---
RECEIVED REPORT FROM DAY SHIFT NURSE, PT AWAKE, AND ALERT X1 ABLE TO FOLLOW SIMPLE COMMANDS. BREATHING EVENLY AND UNLABORED, ON TRACH TO VENT ACPC FIO2 28% PEEP 5 RATE 14, NO SIGNS OF ACUTE DISTRESS. FLACC 0, SKIN IS WARM AND DRY, NOTED SACRAL OPEN WOUND, DRESSING CHANGED, KEPT CLEAN AND DRY. OFFLOAD TO PRESSURE AREAS, TURN AND REPOSITIONED. WITH G TUBE FEEDING GLUCERNA AT 50CC/HR. RESIDUAL MINIMAL 5-10CC. HOB ELEVATED AT LEAST 30 DEGREES, BELL CATHETER IN PLACE, DRAINING CLEAR YELLOW URINE. TRACH/ORAL CARE WITH SUCTION PERFORMED. ALL NEEDS ANTICIPATED, SAFETY PRECAUTIONS MAINTAINED. CALL LIGHT WITHIN REACH.
[2019-12-28] MEDS ORDERED: ALBUTEROL SULFATE/IPRATROPIU 3 ML SOL IH ONE (19:14)
--- NOTE | 2019-12-28 19:25 | NUR ---
REPORT GIVEN TO MEDICAL TECHNICIAN ASSISTANT NURSE
--- NOTE | 2019-12-28 22:00 | NUR ---
TURNED AND REPOSITIONED, OFFLOAD TO PRESSURE AREAS, KEPT CLEAN AND DRY. CONTINUE TO MONITOR.
[2019-12-29] VITALS (17 sets, daily range): BP systolic 108–188; BP diastolic 50–126
--- NOTE | 2019-12-29 | NUR ---
PT ASLEEP IN BED, NO SIGNS OF ACUTE DISTRESS, FLACC 0. TURNED AND REPOSITIONED, OFFLOAD TO PRESSURE AREAS, KEPT CLEAN AND DRY. CONTINUE TO MONITOR.
[2019-12-29] MEDS: ALBUTEROL SULFATE/IPRATROPIU 3 ML SOL IH PRN ×2 (01:04→19:18)
[2019-12-29] MEDS: hydrALAZINE 20 MG/ML VIAL IVP PRN ×3 (01:34→19:55)
[2019-12-29] MEDS: MORPHINE SULFATE 2 MG/ML SYR IVP PRN ×3 (01:39→19:54)
--- NOTE | 2019-12-29 02:00 | NUR ---
PT ASLEEP IN BED, NO SIGNS OF ACUTE DISTRESS, FLACC 0. TURNED AND REPOSITIONED, OFFLOAD TO PRESSURE AREAS, KEPT CLEAN AND DRY. CONTINUE TO MONITOR.
--- NOTE | 2019-12-29 04:00 | NUR ---
PT TURNED AND REPOSITIONED, NO SIGNS OF ACUTE DISTRESS, FLACC 0, OFFLOAD TO PRESSURE AREAS, ORAL CARE AND TRACH SUCTION PERFORMED, KEPT CLEAN AND DRY. CONTINUE TO MONITOR.
[2019-12-29] MEDS: BLOOD GLUCOSE MONITORING 1 DEV DEV FS SCH ×4 (05:21→23:59)
[2019-12-29] MEDS: DIPHENOXYLATE /ATROPINE 2.5 MG TAB PO PRN (05:23)
[2019-12-29] MEDS: MEROPENEM 500 MG in NACL 0.9% 50 ML IV SCH ×3 (05:23→20:18)
[2019-12-29] MEDS: INSULIN LISPRO SLIDING SCALE 100 UNITS/ML VIAL SUBQ PRN ×3 (05:25→18:04)
--- NOTE | 2019-12-29 07:24 | NUR ---
RECEIVED TRACH PT WITH A SHILEY 6 TRACH ON VENT. SETTINGS PC Pinsp 25, R14, PEEP 5 AND FIO2 28%. PT SUCTIONED OBTAINED SMALL AMOUNT OF PALE YELLOW SECRETIONS, AIRWAY IS PATENT AND TRACH IS SECURE. PT IS NOT IN ANY DISTRESS AT THIS TIME. VENT IS PLUGGED INTO A RED OUTLET WITH ALARMS ON AND FUNCTIONING. WILL CONTINUE TO MONITOR.
--- NOTE | 2019-12-29 07:30 | NUR ---
RECEIVED BEDSIDE REPORT FROM PERFORMANCE MANAGER RN, PT IS AWAKE, AAOX1, FOLLOWS SIMPLE COMMANDS. NORMAL SINUS RHYTHM ON MONITOR. PT HAS PACEMAKER AT RIGHT CHEST. CAP REFILL < 2 SEC. PULSES PALPABLE TO ALL EXTREMITIES. TRACH TO VENT WITH SETTINGS AC/PC FIO2 28%, PINSP 25, RR 14, PEEP 10. LUNGS SOUND CLEAR BILATERALLY. BREATHING EVEN AND UNLABORED. ABDOMEN ROUND, SOFT, NONTENDER WITH ACTIVE BOWEL SOUNDS X [address] QU[address]RANTS. G-TUBE IN PLACE, RECEIVING TUBE FEEDING GLUCERNA 1.2 AT 50 ML/HR WITH FWF 50 ML Q4H. 15 ML RESIDUALS NOTED. CENTRAL LINE TLC TO LEFT SUBCLAVIAN ASYMPTOMATIC, PATENT AND INTACT, RUNNING NS TKO. BELL CATH IN PLACE DRAINING CLEAR YELLOW URINE TO GRAVITY. HEALED INCISIONS NOTED TO RIGHT CHEST AND ABDOMEN. ABDOMINAL BINDER IN PLACE. OPEN WOUND TO SACRAL AREA DRESSING DRY AND INTACT, REDNESS TO PERINEAL AREA NOTED. SKIN IS DRY AND WARM TO TOUCH. HOB AT 30 DEGREES. BED IN LOWEST POSITION LOCKED. CALL LIGHT WITHIN REACH. NO SIGNS OF DISTRESS NOTED AT THIS TIME. WILL CONTINUE TO MONITOR.
[2019-12-29] MEDS: levETIRAcetam 500 MG TAB GT SCH ×2 (08:07→20:18)
[2019-12-29] MEDS: CARVEDILOL 12.5 MG TAB PO SCH ×2 (08:08→20:18)
[2019-12-29] MEDS: SPIRONOLACTONE 25 MG TAB PO SCH (08:08)
[2019-12-29] MEDS: LEVOTHYROXINE 0.075 MG TAB PO SCH (08:08)
--- NOTE | 2019-12-29 08:30 | NUR ---
MEDICATIONS ADMINISTERED ORDERED. PT TOLERATED WELL.
--- NOTE | 2019-12-29 09:08 | NUR ---
FIO2 TITRATED TO 24%. NURSE MADE AWARE. WILL CONTINUE TO MONITOR.
[2019-12-29 09:28] LABS: BASOPHILS # (AUTO) 0.1 K/uL (0.00-0.22); BASOPHILS % (AUTO) 0.9 % (0.0-2.0); EOSINOPHILS # (AUTO) 0.4 K/uL (0-0.4); EOSINOPHILS % (AUTO) 4.9 % (0.0-4.0); HEMATOCRIT 26.8 % (36-48); HEMOGLOBIN 8.7 g/dL (12.0-16.0); LYMPHOCYTES # (AUTO) 1.1 K/uL (2.5-16.5); LYMPHOCYTES % (AUTO) 13.9 % (20.5-51.1); MEAN CORPUSCULAR HEMOGLOBIN 29 pg (27-31); MEAN CORPUSCULAR HGB CONC 33 g/dL (33-37); MEAN CORPUSCULAR VOLUME 88.8 fL (80-94); MONOCYTES # (AUTO) 0.8 K/uL (0.8-1.0); NEUTROPHILS # (AUTO) 5.8 K/uL (1.8-7.7); NEUTROPHILS % (AUTO) 70.3 % (42.2-75.2); PLATELET COUNT (AUTO) 360 K/uL (140-450); RED BLOOD CELL COUNT(AUTO) 3.02 MIL/uL (4.20-5.40); RED CELL DISTRIBUTION WIDTH 16.7 % (11.6-13.7); WHITE BLOOD COUNT (AUTO) 8.3 K/uL (4.8-10.8)
--- NOTE | 2019-12-29 09:30 | NUR ---
DR. GRANGER IN TO SEE PT. WILL FOLLOW UP ON ORDERS.
[2019-12-29 10:04] LABS: ANION GAP 16.4 (8-16); CARBON DIOXIDE 19.6 mmol/L (21-32)
--- NOTE | 2019-12-29 10:51 | NUR ---
SPOKE WITH DR. LOOMIS REGARDING PT'S ISOLATION STATUS. PER DR. LOOMIS, IF PT IS IN HOSPITAL, STILL NEEDS TO BE ON CONTACT ISOLATION UNTIL END OF ABX THERAPY. BUT FOR SNF, IT DEPENDS ON SNF PROTOCOL TO ISOLATE PT OR NOT. POLISHER BRASS YVES MADE AWARE.
[2019-12-29] MEDS ORDERED: KCL 20 MEQ/WATER INJ PREMIX 200 ML IV SCH (11:00)
[2019-12-29] MEDS ORDERED: POTASSIUM CHLORIDE 20% 40 MEQ/15 ML UDC GT SCH ×2 (11:00→15:00)
--- NOTE | 2019-12-29 11:20 | NUR ---
PT SEEN BY DR. IGNACIO. NO NEW ORDER RECEIVED.
--- NOTE | 2019-12-29 12:00 | NUR ---
VAP ORAL CARE GIVEN. TURNED AND REPOSITIONED. PT IS AFEBRILE. TRACH TO VENT, FIO2 24%. TOLERATING TUBE FEEDING, RESIDUALS 20 ML. DENIES PAIN AT THIS TIME. CALL LIGHT WITHIN REACH. SAFETY PRECAUTIONS IN PLACE.
[2019-12-29] MEDS: GAUZE TP SCH (12:03)
[2019-12-29] MEDS ORDERED: POTASSIUM CHLORIDE 20% 40 MEQ/15 ML UDC GT PRN (13:00)
--- NOTE | 2019-12-29 13:10 | NUR ---
PT SEEN AND EXAMINED BY DR. HOU. UPDATES GIVEN ON PT'S CONDITION. NO NEW ORDER RECEIVED AT THIS TIME.
--- NOTE | 2019-12-29 14:31 | NUR ---
12/29/19 RD FOLLOW UP COMPLETED PLEASE REFER TO NUTRITION ASSESSMENT UNDER CARE ACTIVITY FOR ESTIMATED NUTRITIONAL NEEDS. 1. CONTINUE GLUCERNA 1.2 @ 50 ML/HR TOLERATED PER PHYSICIAN -THIS WILL PROVIDE 1440 CALORIES AND 72 GM OF PROTEIN WHICH MEETS >75% OF ESTIMATED NEEDS 2. GRADUALLY INCREASE TUBE FEEDING GOAL RATE OF GLUCERNA 1.2 TO 60 ML/HR WHEN PT IS MEDICALLY STABLE UNDER DOCTORS DISCRETION -THIS WILL PROVIDE 1440 ML OF VOLUME, 1728 KCAL AND 86 GM OF PROTEIN WHICH MEETS 100% OF ESTIMATED KCAL NEEDS 3. INCREASE FREE WATER FLUSH TO 90 ML Q4H WHEN MEDICALLY STABLE UNDER DOCTORS DISCRETION 4. RD TO FOLLOW-UP 2-3 DAYS, HIGH RISK ALEXANDRU RECINOS RD
[2019-12-29] MEDS: KCL 20 MEQ/WATER INJ PREMIX 200 ML IV SCH (14:48)
--- NOTE | 2019-12-29 16:00 | NUR ---
VAP ORAL CARE GIVEN. TURNED AND REPOSITIONED FOR COMFORT AND PRESSURE OFF LOADING. PT IS AFEBRILE. FLACC 0. SAFETY PRECAUTIONS IN PLACE.
--- NOTE | 2019-12-29 16:51 | NUR ---
PER PRIMARY RN SACRALCOCCYX SKIN CHANGE OF CONDITION, ASSESSMENT DONE WITH PRIMARY RN: FINDING PREVIOUS IAD RE INTACT SKIN IS OPEN WITH STAGE 2 PRESSURE ULCER, 2.5X3X 0.1CM WOUND BED 100% RED ,MOIST. NO ODOR ,IRREGULAR SHAPE WITH SURROUNDING REDNESS 3X4CM FURTHER DAMAGE INDICATED. POC DISCUSSED WITH PRIMARY RN AND RECOMMEND RECTAL BAG FOR INCONTINENT OF LOOSE BM, MOISTURE CONTROL AND CONTINUE Z GUARD AND OPTIC FOAM ORDERED. CONTINUE TO FOLLOW RD RECOMMENDATIONS.
--- NOTE | 2019-12-29 17:00 | NUR ---
BED BATH GIVEN, LINENS CHANGED. PRESSURE AREAS OFF LOADED. PT TOLERATED WELL. TOLERATING TUBE FEEDING, NO RESIDUALS AT THIS TIME. SAFETY MEASURES ENSURED. WILL CONTINUE TO MONITOR.
--- NOTE | 2019-12-29 17:28 | NUR ---
PT NOT IN ANY DISTRESS AT THIS TIME. TRACH IS SECURE WITH A PATENT AIRWAY. VENT ALARMS REMAIN ON AND FUNCTIONING.
--- NOTE | 2019-12-29 18:05 | NUR ---
CALLED AND UPDATED , JAIMIE REGARDING PT'S CHANGE OF CONDITION OF THE SACROCOCCYX SKIN AND THE TREATMENT PT IS GETTING. JAIMIE VERBALIZED UNDERSTANDING AND STATED THAT HE IS MORE CONCERNED ABOUT THE INFECTION BEING TREATED AT THIS TIME.
--- NOTE | 2019-12-29 19:22 | NUR ---
REPORT GIVEN TO CUSTOM DECORATING CONSULTANT RN FOR CONTINUITY OF CARE. PT IS IN STABLE CONDITION.
--- NOTE | 2019-12-29 19:30 | NUR ---
RECEIVED REPORT FROM TAYE HOUSER. PT AFEBRILE. AOX1. UNABLE TO VERBALIZE NEEDS ABLE TO TRACK/ TRACH TO VENT. SR ON MONITOR. GT TO FEED ON GLUCERNA 1.2 @ 50. BOWEL SOUNDS ACTIVE X [address] F/C IN PLACE. ABD BINDER IN PLACE. BLADDER NON-DISTENDED. SACRAL WOUND NOTED. L SUBCLAVIAN CENTRAL LINE IN PLACE. DRESSING CLEAN INTACT. BED IN LOWEST POSITION. ON ISOLATION PRECAUTION FOR ESBL IN URINE. SR UP X4.
--- NOTE | 2019-12-29 19:55 | NUR ---
ADMINISTERED HYDRALAZINE 20MG AND MORPHINE 2MG AT THIS TIME FOR ELEVATED BP. WILL CONTINUE TO MONITOR.
--- NOTE | 2019-12-29 22:16 | NUR ---
DR. LOOMIS AT BEDSIDE AT THIS TIME. UPDATED ON PTS CURRENT CONDITION. WILL CONTINUE TO FOLLOW UP ANY ADDITIONAL ORDERS.
[2019-12-30] VITALS (9 sets, daily range): BP systolic 104–203; BP diastolic 52–94
--- NOTE | 2019-12-30 00:11 | NUR ---
ACCUCHECK 291. ADMINISTERED 6 UNITS HUMALOG AT THIS TIME. REPOSITIONED TO OFF LOAD PRESSURE AREAS.
[2019-12-30] MEDS: INSULIN LISPRO SLIDING SCALE 100 UNITS/ML VIAL SUBQ PRN ×3 (00:38→12:57)
--- NOTE | 2019-12-30 04:39 | NUR ---
PT CLEANED AND REPOSITIONED 1 LARGE WATERY STOOL AT THIS TIME
[2019-12-30] MEDS: MEROPENEM 500 MG in NACL 0.9% 50 ML IV SCH ×2 (04:53→12:39)
[2019-12-30] MEDS: hydrALAZINE 20 MG/ML VIAL IVP PRN (04:53)
[2019-12-30] MEDS: DIPHENOXYLATE /ATROPINE 2.5 MG TAB PO PRN (04:54)
[2019-12-30] MEDS: BLOOD GLUCOSE MONITORING 1 DEV DEV FS SCH ×2 (05:35→12:00)
[2019-12-30 05:59] LABS: CARBON DIOXIDE 21.3 mmol/L (21-32); CREATININE 0.9 mg/dL (0.6-1.3)
--- NOTE | 2019-12-30 06:04 | NUR ---
ADMINISTERED LOMOTIL FOR LOOSE STOOLS AND HYDRALAZINE FOR SBP 171. WILL CONTINUE TO OBSERVE.
[2019-12-30 06:06] LABS: POTASSIUM 2.3 mmol/L (3.5-5.1)
--- NOTE | 2019-12-30 07:30 | NUR ---
ECEIVED REPORT FROM PM SHIT. PT AOX1. UNABLE TO VERBALIZE NEEDS,ABLE TO MOUTH SOME WORDS, ABLE TO TRACK/ TRACH TO VENT. FIO2 28%, PIP 24, PEEP 5, RR 14, SR ON MONITOR. GT TO FEED ON GLUCERNA 1.2 @ 50. BOWEL SOUNDS ACTIVE X [address] F/C IN PLACE. ABD BINDER IN PLACE. BLADDER NON-DISTENDED. SACRAL WOUND NOTED. L SUBCLAVIAN CENTRAL LINE IN PLACE. DRESSING CLEAN INTACT. BELL CATH IN PLACE, BED IN LOWEST POSITION. ON ISOLATION PRECAUTION FOR ESBL IN URINE. BELL TO GRAVITY SIDE RAIL UP.
[2019-12-30] MEDS ORDERED: POTASSIUM CHLORIDE 20% 40 MEQ/15 ML UDC GT SCH ×2 (09:00→11:20)
--- NOTE | 2019-12-30 09:15 | NUR ---
DR GRANGER AT BEDSIDE, REPORTED K LEVEL, ORDER FOR ALIDA MORRISON RECEIVED, PLAN TO TRANSFER TO [facility] TODAY.
[2019-12-30] MEDS: CARVEDILOL 12.5 MG TAB PO SCH (09:45)
[2019-12-30] MEDS: SPIRONOLACTONE 25 MG TAB PO SCH (09:45)
[2019-12-30] MEDS: levETIRAcetam 500 MG TAB GT SCH (09:45)
[2019-12-30] MEDS: LEVOTHYROXINE 0.075 MG TAB PO SCH (09:45)
[2019-12-30] MEDS: KCL 20 MEQ/WATER INJ PREMIX 100 ML IV SCH ×2 (09:48→12:42)
--- NOTE | 2019-12-30 09:50 | NUR ---
BED BATH GIVEN, PERICARE DONE, BED LINEN, GOWN CHANGED.
[2019-12-30 10:51] LABS: BASOPHILS % (AUTO) 0.4 % (0.0-2.0); EOSINOPHILS # (AUTO) 0.4 K/uL (0-0.4); EOSINOPHILS % (AUTO) 4.5 % (0.0-4.0); HEMOGLOBIN 9.2 g/dL (12.0-16.0); LYMPHOCYTES # (AUTO) 1.1 K/uL (2.5-16.5); LYMPHOCYTES % (AUTO) 12.6 % (20.5-51.1); MEAN CORPUSCULAR HEMOGLOBIN 30 pg (27-31); MEAN CORPUSCULAR HGB CONC 33 g/dL (33-37); MEAN CORPUSCULAR VOLUME 91.2 fL (80-94); MONOCYTES # (AUTO) 0.7 K/uL (0.8-1.0); MONOCYTES % (AUTO) 7.7 % (1.7-9.3); NEUTROPHILS # (AUTO) 6.7 K/uL (1.8-7.7); NEUTROPHILS % (AUTO) 74.8 % (42.2-75.2); PLATELET COUNT (AUTO) 392 K/uL (140-450); RED BLOOD CELL COUNT(AUTO) 3.07 MIL/uL (4.20-5.40); RED CELL DISTRIBUTION WIDTH 16.8 % (11.6-13.7); WHITE BLOOD COUNT (AUTO) 8.9 K/uL (4.8-10.8)
[2019-12-30] MEDS ORDERED: MAG SULF 2000 MG/WATER PREMIX 50 ML IV SCH (12:00)
[2019-12-30] MEDS: cloNIDine 0.1 MG TAB GT PRN (12:38)
[2019-12-30] MEDS: GAUZE TP SCH (13:00)
[2019-12-30] MEDS ORDERED: Z-GUARD PASTE TP SCH (13:00)
[2019-12-30] MEDS: KCL 20 MEQ/WATER INJ PREMIX 200 ML IV SCH (14:00)
--- NOTE | 2019-12-30 15:25 | NUR ---
CALLED PT'S SON PURNIMA. MESSAGE LEFT THAT PATIENT WILL BE DISCHARGED TO [facility] RM 7B TODAY.
[2019-12-30] MEDS ORDERED: POTA20LI GT (15:26)
--- NOTE | 2019-12-30 15:30 | NUR ---
REPORT CALLED TO MELITON SCHWARTZ RN.
--- NOTE | 2019-12-30 15:46 | NUR ---
[facility] AT BEDSIDE, REPORT GIVEN, PT TO [facility] ROOM 7B,
[2019-12-30] MEDS ORDERED: KCL 20 MEQ/WATER INJ PREMIX 100 ML IV SCH (17:00)
== END 2019-12-30 15:47 | DRG 720 ==
LOC: MED 13:36 → MIC 16:06 → MTU 12-22 05:15 → MIC 12-22 21:23
PROVIDERS: ADMIT Internal Medicine; ATTEND Internal Medicine
PROC: 5A1955Z Respiratory Ventilation, Greater than 96 Consecutive Hours (ICD-10-PCS; principal; 2019-12-20)
PROC: 02HV33Z Insertion of Infusion Device into Superior Vena Cava, Percutaneous Approach (ICD-10-PCS; 2019-12-20)
PROC: 30233N1 Transfusion of Nonautologous Red Blood Cells into Peripheral Vein, Percutaneous Approach (ICD-10-PCS; 2019-12-22)
DX: A41.51 Sepsis due to Escherichia coli [E. coli] (principal); J96.21 Acute and chronic respiratory failure with hypoxia; J69.0 Pneumonitis due to inhalation of food and vomit; R65.21 Severe sepsis with septic shock; G93.1 Anoxic brain damage, not elsewhere classified; Z99.11 Dependence on respirator [ventilator] status; E43 Unspecified severe protein-calorie malnutrition; Z93.0 Tracheostomy status; N39.0 Urinary tract infection, site not specified; E11.9 Type 2 diabetes mellitus without complications; E78.5 Hyperlipidemia, unspecified; E87.6 Hypokalemia; G40.909 Epilepsy, unspecified, not intractable, without status epilepticus; I10 Essential (primary) hypertension; Z16.12 Extended spectrum beta lactamase (ESBL) resistance; E86.0 Dehydration; K56.7 Ileus, unspecified; D50.0 Iron deficiency anemia secondary to blood loss (chronic); R31.9 Hematuria, unspecified; Z86.74 Personal history of sudden cardiac arrest; Z74.01 Bed confinement status; Z86.73 Personal history of transient ischemic attack (TIA), and cerebral infarction without residual deficits; Z93.1 Gastrostomy status; Z95.0 Presence of cardiac pacemaker; Z79.4 Long term (current) use of insulin; Z79.899 Other long term (current) drug therapy; Z86.718 Personal history of other venous thrombosis and embolism; Z68.31 Body mass index [BMI] 31.0-31.9, adult
CPT/HCPCS: 36415; 36556; 36600; 71045; 74018; 80048; 80053; 80202; 81001; 82272; 82607; 82728; 82746; 82803; 82948; 83540; 83605; 83735; 83880; 85025; 85610; 85730; 86886; 86900; 86901; 86920; 87040; 87070; 87081; 87086; 87186; 87205; 87804; 89220; 93005; 94002; 94003; 94640; 96365; 96366; 96367; 99291; J0360; J1815; J1940; J2001; J2060; J2185; J2270; J2543; J3010; J3370; J3475; J3480; J3490; J7030; J7060; J7620; P9016; Q0092

== ENCOUNTER 2020-01-24 00:32 | Inpatient (IN) | payer OTHER ==
[~2020-01-24] VITALS: Ht 170.2 cm; Wt 75.7 kg
[2020-01-24] VITALS (7 sets, daily range): BP systolic 109–187; BP diastolic 43–90
[~2020-01-24 00:32] MED LIST: CARV12.52 PO; CLON0.1T42 GT; INSU100S5 IJ; LANTUS SC; LEVE1000 PO; MERO500V13 IV; MULT-1328 GT; POTA20LI GT; SYN.075 PO; TRAM50TA1 GT; VIT500LI GT
--- NOTE | 2020-01-24 00:32 | NUR ---
PT BIBA ALS TO ER BED 10
[2020-01-24] MEDS ORDERED: NACL 0.9% 2,600 ML IV ONE (00:38)
--- NOTE | 2020-01-24 00:38 | NUR ---
Nia spence in [facility] - 01/24/20 at 0042 by DANIELLA PT BIBA ALS TO ER BED 10
[2020-01-24] MEDS ORDERED: MEROPENEM 1,000 MG in NACL 0.9% 100 ML IV ONE (00:40)
[2020-01-24] MEDS ORDERED: VANCOMYCIN 1,000 MG in DEXTROSE 5% 250 ML IV ONE (00:40)
--- NOTE | 2020-01-24 00:40 | NUR ---
PT BIBA C/O DESATURATION IN THE 70'S. HAS TRACH AND IS RELIANT UPON VENT; STAYS IN A NURSING HOME CARE FACILITY. PT BAGGED UPON ARRIVAL. PALLOR IN COLOR. GCS 3 AT BASELINE. EXTENSIVE MEDICAL HISTORY. PLACED ON MONITOR. 2 IVS PLACED. SWITCHED FROM AMBU TO VENTILLATOR. BG CHECKED WNL. VSS. O2 100% ON VENT; FIO2 100%. LUNG SOUNDS DIMINISHED. NON AROUSABLE PER BASELINE. 2 SIDERAILS UP. WILL CONTINUE TO MONITOR.
[2020-01-24] MEDS ORDERED: MEROPENEM 1,000 MG VIAL IV ONE (00:58)
[2020-01-24] MEDS ORDERED: VANCOMYCIN 1,000 MG VIAL ONE (00:58)
[2020-01-24 01:09] LABS: HEMATOCRIT 28.6 % (36-48); HEMOGLOBIN 9.3 g/dL (12.0-16.0); MEAN CORPUSCULAR HEMOGLOBIN 28 pg (27-31); RED BLOOD CELL COUNT(AUTO) 3.33 MIL/uL (4.20-5.40); WHITE BLOOD COUNT (AUTO) 20.4 K/uL (4.8-10.8)
[2020-01-24 01:11] LABS: MEAN CORPUSCULAR HGB CONC 33 g/dL (33-37); PLATELET COUNT (AUTO) 470 K/uL (140-450)
[2020-01-24 01:18] LABS: EOSINOPHILS % (MANUAL) 1 % (0-4); LYMPHOCYTES % (MANUAL) 5 % (20-46); MONOCYTES % (MANUAL) 6 % (5-12)
[2020-01-24 01:23] LABS: PROTHROMBIN TIME 11.2 secs (10.8-13.4)
--- NOTE | 2020-01-24 01:23 | NUR ---
2 1L NS IVF BOLUSES STARTED; IV ABX STARTED IN EACH IV. XRAY IN ROOM. RESPIRATORY THERAPIST COLLECTING BLOOD GASES.
[2020-01-24 01:24] LABS: ALBUMIN 1.9 g/dL (3.4-5.0); ANION GAP 7.3 (8-16); CARBON DIOXIDE 35.1 mmol/L (21-32); CREATININE 1.3 mg/dL (0.6-1.3); TOTAL BILIRUBIN 0.6 mg/dL (0.0-1.0)
[2020-01-24 01:28] LABS: POTASSIUM 1.4 mmol/L (3.5-5.1)
[2020-01-24] MEDS ORDERED: KCL 20 MEQ/WATER INJ PREMIX 200 ML IV ONE (01:30)
[2020-01-24] MEDS: LACTATED RINGERS 1,000 ML IV SCH ×2 (01:40→14:15)
[2020-01-24] MEDS ORDERED: LORazepam 2 MG/ML VIAL IVP PRN (01:40)
[2020-01-24] MEDS ORDERED: ONDANSETRON 4 MG/2 ML VIAL IVP PRN (01:40)
[2020-01-24] MEDS ORDERED: ACETAMINOPHEN 325 MG TAB PO PRN (01:40)
--- NOTE | 2020-01-24 02:00 | NUR ---
patient cleaned after BM. Wound picture taken of open pressure wound on sacrum.
[2020-01-24] MEDS ORDERED: ACETAMINOPHEN 325 MG SUPP RC ONE (02:05)
[2020-01-24] MEDS ORDERED: ACETAMINOPHEN 650 MG SUPP RC ONE (02:05)
--- NOTE | 2020-01-24 02:32 | NUR ---
IV POTASSIUM STARTED. CHANGED PTS BRIEF 1 SMEAR. REMOVED INDWELLING FROM PREVIOUS FACILITY AND PLACED A NEW ONE. COLLECTED URINE AND SENT TO LAB. WOUND ON COCCYX, COVERED IN MEPILEX. PHOTO TAKEN. VSS. PT WAKING UP; TRACKING WITH EYES. UNABLE TO FOLLOW COMMANDS.
[2020-01-24 03:24] LABS: APPEARANCE,URINE HAZY (CLEAR); BILIRUBIN,URINE NEGATIVE (NEGATIVE); BLOOD, URINE 3+ (NEGATIVE); COLOR,URINE YELLOW (YELLOW); LEUKOCYTE ESTERASE ,URINE 1+ (NEGATIVE); NITRITE, URINE NEGATIVE (NEGATIVE); UGLUCOSE NEGATIVE (NEGATIVE)
--- NOTE | 2020-01-24 03:30 | NUR ---
PT TRANSFERRED TO THE FLOOR BY ANKIT WITH RT AND ER NURSES PT PLACED ON VENT BY RT. PT WAS SWEATY AND PALE, SHE IS APHASIAC. PT IV SITE ON R AND LEFT AC INTACT. PT RUNNING POTASSIUM AT THIS TIME.
[2020-01-24 03:34] LABS: RBC,URINE 11-20 (MOD) /HPF (0-5)
[2020-01-24 03:35] LABS: WBC,URINE 16-25 (MOD) /HPF (0-5)
--- NOTE | 2020-01-24 03:35 | NUR ---
pt transferred to [facility] with no complication. pt placed back on vent on document settings
--- NOTE | 2020-01-24 03:40 | NUR ---
Patient will be admitted to care of [facility]. Admited to TELEMETRY. Will go to room 122. Belongings list completed. Report to
[2020-01-24] MEDS ORDERED: POTASSIUM CHLORIDE 40 MEQ, LIDOCAINE MPF 1% 25 MG in NACL 0.9% 250 ML IV SCH (04:00)
[2020-01-24] MEDS ORDERED: PIPERACILLIN/TAZOBACTAM 2.25 GM VIAL IV ONE (05:53)
--- NOTE | 2020-01-24 06:00 | NUR ---
RT TO CALLED TO ADJUST SETTING OF VENT. ZOSYN HUNG AND RUNNING ORDERED. PT RESP EVEN AND UNLABORED ON CURRNT VENT SETTINGS. PT NPO GT INTACT SGE WAS TURNED, CLEANED AND REPOSITIONED IN BED.
--- NOTE | 2020-01-24 06:30 | NUR ---
PATIENT HAS BEEN SCREENED AND CATEGORIZED LOW NUTRITION RISK. PATIENT WILL BE SEEN WITHIN 7 DAYS OF ADMISSION. 01/31/20 [place] MS, RDN
[2020-01-24] MEDS: PIPERACILLIN/TAZOBACTAM 2.25 GM in DEXTROSE 5% 50 ML IV SCH ×3 (07:00→20:23)
--- NOTE | 2020-01-24 07:02 | NUR ---
RECEIVED ON A [employer] R860 VENTILATOR PLUGGED INTO RED OUTLET TOLERATING WELL WITHOUT INCIDENT TO A MISTY DCT #6 AIRWAY SECURED WITH TRACH TUBE STRAP CUFF PRESSURE CHECKED NOTED AMBU BAG AT BEDSIDE STABLE EQUAL CHEST RISE DEEP TRACHEAL SUCTION FOR COPIOUS THICK YELLOW/BROWN SECRETIONS AIRWAY PATENT Addendum: 01/24/20 at 0723 by [place] RT SATURATION 99%ON FIO2 OF 60% TITRATED FIO2 TO 50% FURNACE ROASTER TO ADVISE DAY/RN
--- NOTE | 2020-01-24 07:15 | NUR ---
RECEIVED REPORT FROM BRAILLE CODER NURSE. PATIENT LYING DOWN IN BED ON TRACH TO VENT WITH SETTINGS FIO2:50%, VT:450, RATE:14, FLOW:35, PEEP:5, PMAX:50 WITH O2 SAT AT 98%. NO DISTRESS NOTED. FLACC 0, APHASIC. GTUBE SITE INTACT, PATENT. BELL CATHETER IN PLACE, DRAINING, CLEAR DARK WILFRED URINE. HAS SACRAL WOUND, DRESSING IS DRY AND INTACT. IV SITE INTACT, PATENT, AND INFUSING IVF PER MD ORDERS. REVIEWED PLAN OF CARE WITH PATIENT. UNABLE TO COMPREHEND. SAFETY MEASURES IN PLACE, CALL LIGHT WITHIN REACH. WILL CONTINUE TO MONITOR.
[2020-01-24] MEDS ORDERED: DEXTROSE 50% 50 ML SYR IVP PRN (08:35)
[2020-01-24] MEDS ORDERED: NON-FORMULARY ITEM (Multivitamin with Minerals (Multivitamins with Minerals) 1 TAB) GT SCH (09:00)
[2020-01-24] MEDS ORDERED: NON-FORMULARY ITEM (Vit C/Ascorbate Ca/Ascorb Sod (Vitamin C 500 mg/15 ml Liquid) 500 MG) GT SCH (09:00)
[2020-01-24] MEDS: INSULIN LANTUS 100 UNITS/ML 10 ML VIAL SUBQ SCH ×2 (09:00→21:00)
[2020-01-24] MEDS ORDERED: CARVEDILOL 12.5 MG TAB PO SCH (09:00)
[2020-01-24] MEDS: ASCORBIC ACID 500 MG/5 ML ORASYR GT SCH (09:35)
[2020-01-24] MEDS: MULTIVITAMIN/MINERALS 1 TAB GT SCH (09:36)
[2020-01-24] MEDS: LEVOTHYROXINE 0.075 MG TAB PO SCH (09:36)
[2020-01-24] MEDS: MAGNESIUM OXIDE 400 MG TAB GT SCH (09:36)
[2020-01-24] MEDS: levETIRAcetam 500 MG TAB PO SCH ×2 (09:36→20:38)
--- NOTE | 2020-01-24 09:43 | NUR ---
PATIENT LYING DOWN IN BED, NO DISTRESS, FLACC 0. SCHEDULED MEDICATIONS DUE GIVEN. WILL CONTINUE TO MONITOR.
[2020-01-24] MEDS: POTASSIUM CHLORIDE 40 MEQ, LIDOCAINE 1% 25 MG in NACL 0.9% 250 ML IV SCH ×4 (09:58→21:00)
--- NOTE | 2020-01-24 10:03 | NUR ---
SCHEDULED POTASSIUM DUE GIVEN. WILL CONTINUE TO MONITOR.
--- NOTE | 2020-01-24 10:29 | NUR ---
NO EVIDENCE OF PULMONARY DISTRESS NOTED GOOD CHEST RISE DEEP TRACHEAL SUCTION FOR SMALL THIN PALE YELLOW SECRETIONS AIRWAY PATENT
--- NOTE | 2020-01-24 11:14 | NUR ---
DR. LINN AT BEDSIDE REVIEWING PLAN OF CARE WITH PATIENT. WILL CONTINUE TO MONITOR.
[2020-01-24] MEDS: BLOOD GLUCOSE MONITORING 1 DEV DEV FS SCH ×2 (11:35→16:30)
--- NOTE | 2020-01-24 11:36 | NUR ---
PATIENT'S BLOOD GLUCOSE AT 53, D50% IVP GIVEN AT THIS TIME. WILL RECHECK BLOOD GLUCOSE. WILL CONTINUE TO MONITOR.
--- NOTE | 2020-01-24 12:13 | NUR ---
RECHECKED PATIENT'S BLOOD SUGAR AFTER GIVING D50, BLOOD SUGAR NOW IS 138. PATIENT WILL START GTUBE FEEDING AT LUNCH. WILL CONTINUE TO MONITOR.
--- NOTE | 2020-01-24 12:15 | NUR ---
SCHEDULED MEDICATIONS DUE GIVEN. CONDITION UNCHANGED. WILL CONTINUE TO MONITOR.
--- NOTE | 2020-01-24 14:16 | NUR ---
ASSISTED CHUCKING AND BORING MACHINE OPERATOR IN CLEANING AND REPOSITIONING PATIENT. SCHEDULED MEDICATIONS DUE GIVEN. WILL CONTINUE TO MONITOR.
[2020-01-24 15:32] LABS: ANION GAP 9.5 (8-16); CREATININE 1.4 mg/dL (0.6-1.3)
[2020-01-24 15:40] LABS: POTASSIUM 1.5 mmol/L (3.5-5.1)
--- NOTE | 2020-01-24 15:50 | NUR ---
STABLE NO DISTRESS NOTED EQUAL CHEST RIS DEEP TRACHEAL SUCTION FOR MODERATE THICK YELLOW/BROWN SECRETIONS AIRWAY PATENT
--- NOTE | 2020-01-24 18:11 | NUR ---
3RD BAG OUT OF 4 BAGS OF 40 MEQ POTASSIUM. PATIENT TOLERATING WELL. CONDITION UNCHANGED. WILL CONTINUE TO MONITOR.
--- NOTE | 2020-01-24 19:15 | NUR ---
RECEIVED REPORT FROM MAGED PORTILLO DAYSHIFT NURSE AT BEDSIDE FOR CONTINUITY OF CARE, PT INSTABLE CONDITION.
--- NOTE | 2020-01-24 19:18 | NUR ---
GAVE REPORT TO INTERNET [employer]AB[employer] SPECIALIST NURSE FOR CONTINUITY OF CARE. PATIENT IN STABLE CONDITION.
--- NOTE | 2020-01-24 19:59 | NUR ---
received pt from day shift on documented settings. vent plugged into red outlet. bmw at bedside. alarms audible and working. trach shiley 6 is secured and intact. pt appears in no diistress. will cont to monitor.
--- NOTE | 2020-01-24 20:00 | NUR ---
PT IN BED AOX3-4. PT LIP READS AND MOUTHS WORDS. PT IS TRACH TO VENT AND IS BREATHING EASY WITH ALL TRACH TO VENT SETTINGS. PT HAS OPEN AREA ON SACCUM. SHE HAS 2 IV SITE BOTH 22 ONE ON LEFT WRIST 1 ON R AC. PT RUNNING LACTATED RINGERS AT 70 AND K RIDER WITH LIDOCCAIN DUE TO LOW POTASSIUM BOTH ARMS ARE NOTED WITH SOME SWELLING . GTUBE IN TACT WITH NO RESIDUAL RUNNING FEEDING ORDERED. NO RESIDUAL NOTED. V/S IN STABLE CONDITION,ALL FALLS PROTOCOL IN PLACE.
[2020-01-24] MEDS: MORPHINE SULFATE 4 MG/ML SYR IVP PRN (20:01)
[2020-01-24] MEDS ORDERED: CRUSHER, PILL MC ONE (20:35)
--- NOTE | 2020-01-24 21:00 | NUR ---
PT GIVEN ORDERED AND SCHEDULED MEDS . ALL REQUESTED NEEDS ATTENDED, ALL FALLS PRECAUTIONS NI PLACE. PT WAS TURNED AND REPOSITED IN BED.
[2020-01-25] VITALS: BP 140/54
--- NOTE | 2020-01-25 | NUR ---
PT IN BED ASLEEP SHE WAS TURNED AND REPOSITIONED. V/S STABLE,. BELL CATH IN PLACE AND DRAINING DARK URINE PT BREATHING IS EASY AND IS ASYMPTOMATIC V/S FOLLOWS; T 97.4 P 74 R 18 B/P 140/54 02 98% ON ROOM AIR. ALL FALLS PRECAUTIONS IN PLACE.
[2020-01-25] MEDS: BLOOD GLUCOSE MONITORING 1 DEV DEV FS SCH ×4 (00:16→18:15)
[2020-01-25] MEDS: LACTATED RINGERS 1,000 ML IV SCH (02:40)
[2020-01-25 04:00] VITALS: BP 135/56
--- NOTE | 2020-01-25 06:05 | NUR ---
PT REMAINS ON DOCUMENTED SETTING. BMV AT BEDSIDE. VENT PLUGGED INTO RED OUTLET. ALARMS AUDIBLE AND WORKING. TRACH IS SECURED AND INTACT. PT IS IN NO DISTRESS. WILL CONT TO MONITOR.
[2020-01-25] MEDS: PIPERACILLIN/TAZOBACTAM 2.25 GM in DEXTROSE 5% 50 ML IV SCH ×3 (06:13→20:00)
[2020-01-25] MEDS: INSULIN LISPRO SLIDING SCALE 100 UNITS/ML VIAL SUBQ PRN ×3 (06:29→20:23)
--- NOTE | 2020-01-25 07:25 | NUR ---
RECEIVED REPORT FROM FOOD SERVICE ORDER CLERK NURSE. PATIENT LYING DOWN IN BED ON TRACH TO VENT WITH SETTINGS FIO2:40%, VT:450, RATE:14, FLOW:35, PEEP:5, PMAX:50 WITH O2 SAT AT 98%. NO DISTRESS NOTED. FLACC 0, APHASIC. GTUBE SITE INTACT, PATENT, AND INFUSING CONTINUOUS FEEDING PER MD ORDERS. BELL CATHETER IN PLACE, DRAINING, CLEAR YELLOW URINE. HAS SACRAL WOUND, DRESSING IS DRY AND INTACT. IV SITE INTACT, PATENT, AND INFUSING IVF PER MD ORDERS. REVIEWED PLAN OF CARE WITH PATIENT. UNABLE TO COMPREHEND. SAFETY MEASURES IN PLACE, CALL LIGHT WITHIN REACH. WILL CONTINUE TO MONITOR.
[2020-01-25 08:00] VITALS: BP 152/58
[2020-01-25 08:06] LABS: ALBUMIN 1.4 g/dL (3.4-5.0); ANION GAP 10.6 (8-16); CARBON DIOXIDE 29.1 mmol/L (21-32); CREATININE 1.4 mg/dL (0.6-1.3); MAGNESIUM 2.1 mg/dL (1.8-2.4); TOTAL BILIRUBIN 0.5 mg/dL (0.0-1.0)
--- NOTE | 2020-01-25 08:06 | NUR ---
RECEIVED ON A [employer] R860 VENTILATOR PLUGGED INTO RED OUTLET TOLERATING WELL WITHOUT INCIDENT TO A MISTY DCT # 6 AIRWAY SECURED WITH TRACH TIE CUFF PRESSURE CHECKED NOTED AMBU BAG NOTED AT HOB GOOD CHEST RISE BREATH SOUNDS COARSE RHONCHI BILATERAL MAGED/RN AT BEDSIDE PERFORMING DEEP TRACHEAL SUCTION FOR LARGE THICK YELLOW SECRETIONS WITH SEVERAL DARK BROWN PLUGS AIRWAY PATENT
[2020-01-25 08:13] LABS: POTASSIUM 1.7 mmol/L (3.5-5.1)
[2020-01-25] MEDS: INSULIN LANTUS 100 UNITS/ML 10 ML VIAL SUBQ SCH ×2 (09:00→20:38)
[2020-01-25] MEDS ORDERED: POTASSIUM CHLORIDE 40 MEQ in NACL 0.9% 1,000 ML IV SCH (09:05)
[2020-01-25 09:11] LABS: BASOPHILS % (AUTO) 0.2 % (0.0-2.0); EOSINOPHILS # (AUTO) 0.2 K/uL (0-0.4); EOSINOPHILS % (AUTO) 1.2 % (0.0-4.0); LYMPHOCYTES # (AUTO) 0.9 K/uL (2.5-16.5); LYMPHOCYTES % (AUTO) 5.3 % (20.5-51.1); MEAN CORPUSCULAR HEMOGLOBIN 28 pg (27-31); MEAN CORPUSCULAR HGB CONC 33 g/dL (33-37); MEAN CORPUSCULAR VOLUME 85.1 fL (80-94); MONOCYTES # (AUTO) 0.8 K/uL (0.8-1.0); MONOCYTES % (AUTO) 5.2 % (1.7-9.3); NEUTROPHILS % (AUTO) 88.1 % (42.2-75.2); PLATELET COUNT (AUTO) 277 K/uL (140-450); RED BLOOD CELL COUNT(AUTO) 2.23 MIL/uL (4.20-5.40); RED CELL DISTRIBUTION WIDTH 15.9 % (11.6-13.7); WHITE BLOOD COUNT (AUTO) 15.9 K/uL (4.8-10.8)
[2020-01-25] MEDS: ASCORBIC ACID 500 MG/5 ML ORASYR GT SCH (09:45)
[2020-01-25] MEDS: LEVOTHYROXINE 0.075 MG TAB PO SCH (09:46)
[2020-01-25] MEDS: levETIRAcetam 500 MG TAB PO SCH ×2 (09:47→20:17)
[2020-01-25] MEDS: MAGNESIUM OXIDE 400 MG TAB GT SCH (09:47)
[2020-01-25] MEDS: MULTIVITAMIN/MINERALS 1 TAB GT SCH (09:49)
--- NOTE | 2020-01-25 09:54 | NUR ---
STABLE GOOD CHEST RISE DEEP TRACHEAL SUCTION FOR MODERATE THICK YELLOW SECRETIONS WITH FEW BROWN PLUGS AIRWAY PATENT
--- NOTE | 2020-01-25 10:04 | NUR ---
PATIENT LYING DOWN IN BED, AWAKE, ALERT. SCHEDULED MEDICATIONS DUE GIVEN. WILL CONTINUE TO MONITOR.
[2020-01-25 10:12] LABS: HEMOGLOBIN 6.2 g/dL (12.0-16.0)
[2020-01-25] MEDS: POTASSIUM CHLORIDE 40 MEQ, LIDOCAINE 1% 25 MG in NACL 0.9% 250 ML IV SCH ×2 (11:08→20:46)
--- NOTE | 2020-01-25 11:14 | NUR ---
SCHEDULED MEDICATIONS DUE GIVEN. WILL CONTINUE TO MONITOR.
--- NOTE | 2020-01-25 11:28 | NUR ---
RESTING COMFORTABLY NO PULMONARY DISTRESS NOTED EQUAL CHEST RISE DEEP TRACHEAL SUCTION FOR MODERATE THICK YELLOW SECRETIONS AIRWAY PATENT
[2020-01-25 12:00] VITALS: BP 164/63
[2020-01-25] MEDS: cloNIDine 0.1 MG TAB GT PRN (12:34)
--- NOTE | 2020-01-25 12:55 | NUR ---
SCHEDULED MEDICATIONS DUE GIVEN. WILL CONTINUE TO MONITOR.
--- NOTE | 2020-01-25 14:11 | NUR ---
NO SOB NOTED GOOD CHEST RISE NO DEEP TRACHEAL SUCTION AT THIS TIME SUPPOSITORY MOLDING MACHINE OPERATOR TO MONITOR [facility] CLINICAL MANAGER LOCAL AND STUDENTS AT BEDSIDE FIR IV INSERTION
--- NOTE | 2020-01-25 15:37 | NUR ---
NO RESPIRATORY DISTRESS NOTED GOOD CHEST RISE AND AERATION THROUGHOUT BILATERAL LUNG THORPE AIRWAY PATENT SATURATION 100% ON FIO2 OF 40% TITRATED FIO2 TO 35% MAGED/RN AWARE
--- NOTE | 2020-01-25 15:50 | NUR ---
TYLENOL GIVEN AT THIS TIME FOR PRETRANSFUSION. WILL CONTINUE TO MONITOR.
[2020-01-25 16:00] VITALS: BP 149/51
--- NOTE | 2020-01-25 16:20 | NUR ---
1 UNIT PRBC STARTED. WILL CONTINUE TO MONITOR.
--- NOTE | 2020-01-25 17:35 | NUR ---
NO DISTRESS NOTED GOOD CHEST RISE AIRWAY PATENT SATURATION 98% ON FIO2 35% TITRATED FIO2 TO 30% MAGED/RN NOTIFIED
--- NOTE | 2020-01-25 18:30 | NUR ---
1 UNIT PRBC INFUSING, NO REACTIONS NOTED. WILL CONTINUE TO MONITOR.
--- NOTE | 2020-01-25 19:24 | NUR ---
RECEIVED REPORT AT BEDSIDE FROM MAGED PORTILLO DAYSHIFT NURSE FOR CONTINUITY OF CARE, PT IN STABLE CONDITION.
--- NOTE | 2020-01-25 19:25 | NUR ---
GAVE REPORT TO CONTRACTING OFFICER NURSE FOR CONTINUITY OF CARE. PATIENT IN STABLE CONDITION.
--- NOTE | 2020-01-25 20:00 | NUR ---
PT IN LOW BED SHE IS AOX1 . PT HAS SACRAL WOUND DRESING . LUNGS ARE CLEAR AND SHE IS A TRACH TO VENT. PT FINISHED BLOOD TRANSFUSION V/S STABLE NO S/S OF BRUISING OR BLEEDING,. ZOSYN HUNG AND RUNNING AT 2LITERS VIA O2. RESPIRATIONS EVEN AND UNLABORED. POTASSIUM CONTINUES ORDERED. PT TURNED AND REPOSITIONED IN BED.
[2020-01-25] MEDS: CARVEDILOL 12.5 MG TAB GT SCH (20:26)
--- NOTE | 2020-01-25 21:30 | NUR ---
PT GIVEN ORDERED COREG, KEPPRA VIA GT WELL ZOSYN.
--- NOTE | 2020-01-25 22:00 | NUR ---
PT TURNED AND CHANGED, AND REPOSITIONED IN BED. Addendum: 01/26/20 at 0657 by Stephenie Duarte RN ALL FALLS AND SEIZURE PRECAUTIONS IN PLACE
[2020-01-26] VITALS (8 sets, daily range): BP systolic 144–173; BP diastolic 50–72
--- NOTE | 2020-01-26 | NUR ---
PT IN BED ALL FALLS PRECAUTIONS IN PLACE. 2ND UNIT OF BLOOD TRANSFUSION STARTED. PT WAS SUCTION X 2 MINIMAL BUT THICK AND YELLOW SECRETIONS NOTED. FINGERSTICK IS 178, 2 UNITS PROVIDED.
--- NOTE | 2020-01-26 01:00 | NUR ---
TRANSFUSION IN PROGRESS, V/S STABLE NO ADVERSE REACTIONS NOTED. ALL FALLS AND SEIZURE PRECAUTIONS IN PLACE.
--- NOTE | 2020-01-26 03:30 | NUR ---
TRANSFUSION COMPLETED NO ADVERSE REACTIONS AND NO S/S OF PAIN OR DISTRESS NOTED.
--- NOTE | 2020-01-26 04:00 | NUR ---
PT TURNED, CHANGED AND REPOSITIONED IN BED WOUND CARE PROVIDED. ALL FALLS AND SEIZURE PRECAUTIONS IN PLACE.
[2020-01-26] MEDS: PIPERACILLIN/TAZOBACTAM 2.25 GM in DEXTROSE 5% 50 ML IV SCH ×3 (04:36→21:18)
[2020-01-26] MEDS: INSULIN LISPRO SLIDING SCALE 100 UNITS/ML VIAL SUBQ PRN ×3 (05:41→18:13)
[2020-01-26] MEDS: BLOOD GLUCOSE MONITORING 1 DEV DEV FS SCH ×4 (05:42→17:52)
[2020-01-26] MEDS: POTASSIUM CHLORIDE 40 MEQ, LIDOCAINE 1% 25 MG in NACL 0.9% 250 ML IV SCH ×2 (05:45→11:21)
--- NOTE | 2020-01-26 06:00 | NUR ---
PT FINGERSTICK IS 178, GIVEN ORDERED 2 UNITS OF HUMALOG COVERAGE. GT INTACT GLUCERNIA RUNNING ORDERED. ZOSYN HUNG AND RUNNING ORDERED.
[2020-01-26 06:23] LABS: BASOPHILS % (AUTO) 0.2 % (0.0-2.0); EOSINOPHILS # (AUTO) 0.3 K/uL (0-0.4); EOSINOPHILS % (AUTO) 2.1 % (0.0-4.0); HEMATOCRIT 23.2 % (36-48); HEMOGLOBIN 7.6 g/dL (12.0-16.0); LYMPHOCYTES % (AUTO) 7.9 % (20.5-51.1); MEAN CORPUSCULAR HEMOGLOBIN 28 pg (27-31); MEAN CORPUSCULAR HGB CONC 33 g/dL (33-37); MEAN CORPUSCULAR VOLUME 86.4 fL (80-94); MONOCYTES # (AUTO) 0.7 K/uL (0.8-1.0); MONOCYTES % (AUTO) 5.4 % (1.7-9.3); NEUTROPHILS # (AUTO) 10.5 K/uL (1.8-7.7); NEUTROPHILS % (AUTO) 84.4 % (42.2-75.2); PLATELET COUNT (AUTO) 279 K/uL (140-450); RED BLOOD CELL COUNT(AUTO) 2.69 MIL/uL (4.20-5.40); RED CELL DISTRIBUTION WIDTH 15.7 % (11.6-13.7); WHITE BLOOD COUNT (AUTO) 12.5 K/uL (4.8-10.8)
[2020-01-26 06:51] LABS: ALBUMIN 1.3 g/dL (3.4-5.0); ANION GAP 12.5 (8-16); CARBON DIOXIDE 27.4 mmol/L (21-32); CREATININE 1.3 mg/dL (0.6-1.3); TOTAL BILIRUBIN 0.4 mg/dL (0.0-1.0)
[2020-01-26 06:55] LABS: POTASSIUM 1.9 mmol/L (3.5-5.1)
--- NOTE | 2020-01-26 07:09 | NUR ---
CRITICAL LABS REPORT OF CALCIUM 7.7 POTASSIUM 1.9 AND BUN 36. [facility] CALLED CRITICAL LABS REPORTED TO MD PANIAGUA. NO NEW ORDERERS NOTED.
--- NOTE | 2020-01-26 07:10 | NUR ---
RECEIVED REPORT FROM BANDAR JAIME. PATIENT IN BED ON TRACH TO VENT. VENT SETTINGS FIO2:30%, VT:450, RATE:14, FLOW:35, PEEP:5. RESPIRATIONS EVEN AND UNLABORED. NO S/S DISTRESS NOTED. PT AWAKE, APHASIC. FLACC-0. G-TUBE SITE INTACT AND PATENT WITH GLUCERNA 1.2. BELL CATHETER IN PLACE, DRAINING, CLEAR YELLOW URINE. IV INTACT AND PATENT TO RIGHT HAND SL AND LEFT HAND WITH IVF ORDERED. PLANS OF CARE DISCUSSED, UNABLE TO COMPREHEND. SAFETY MEASURES IN PLACE. CALL LIGHT WITHIN REACH.
--- NOTE | 2020-01-26 08:52 | NUR ---
STABLE NO EVIDENCE OF PULMONARY DISTRESS NOTED GOOD CHEST RISE DEEP TRACHEAL SUCTION FOR SMALL THIN YELLOW SECRETIONS AIRWAY PATENT
--- NOTE | 2020-01-26 09:00 | NUR ---
PATIENT REMAINS IN STABLE CONDITION. TRACH TO VENT. PATIENT CHANGED AND REPOSITIONED. CALL LIGHT WITHIN REACH. NO S/S OF DISTRESS NOTED.
[2020-01-26] MEDS: MULTIVITAMIN/MINERALS 1 TAB GT SCH (09:43)
[2020-01-26] MEDS: levETIRAcetam 500 MG TAB PO SCH ×2 (09:43→20:52)
[2020-01-26] MEDS: ASCORBIC ACID 500 MG/5 ML ORASYR GT SCH (09:43)
[2020-01-26] MEDS: CARVEDILOL 12.5 MG TAB GT SCH ×2 (09:44→20:52)
[2020-01-26] MEDS: MAGNESIUM OXIDE 400 MG TAB GT SCH (09:45)
[2020-01-26] MEDS: LEVOTHYROXINE 0.075 MG TAB PO SCH (09:45)
[2020-01-26] MEDS: INSULIN LANTUS 100 UNITS/ML 10 ML VIAL SUBQ SCH ×2 (09:47→21:00)
--- NOTE | 2020-01-26 11:00 | NUR ---
ROUNDS MADE. PATIENT REMAINS IN STABLE CONDITION. TRACH TO VENT. PATIENT CHANGED AND REPOSITIONED. CALL LIGHT WITHIN REACH. NO S/S OF DISTRESS NOTED.
--- NOTE | 2020-01-26 11:05 | NUR ---
DR. LINN IN UNIT TO SEE PATIENT.
--- NOTE | 2020-01-26 11:18 | NUR ---
WOUND CARE EVALUATION NOTE: REASON FOR EVALUATION: LOW HELLEN SCALE AND SACRALCOCCYX WOUND SKIN ASSESSMENT DONE WITH THIS 64Y/O FEMALE [place] [facility] [place] [facility] WITH INITIAL DX FEVER AND SOB. PAST MEDICAL HX INCLUDES CHRONIC HYPOXEMIC RESPIRATORY FAILURE, STATUS POST TRACHEOSTOMY, VENTILATOR DEPENDENT, S/P CARDIAC ARREST DUE TO COMPLETE HEART BLOCK, S/P PERMANENT PACEMAKER PLACEMENT, ANOXIC ENCEPHALOPATHY, SEIZURE DISORDER, HISTORY OF DVT, DIABETES MELLITUS TYPE 2, OBESITY, PRESSURE ULCER WOUNDS, PEG-TUBE. ALL ABOVE INFORMATION OBTAINED FROM H&P. PT IS AWAKE. EYES OPEN, NON-VERBAL. SKIN IS WARM AND DRY, BLE HAIR NO GROWTH, NO EDEMA. DORSAL PEDAL PULSES PRESENT AND NORMAL. CAPILLARY REFILLED < 2 SEC. X 10 TOES. INCONTINENT OF BOWEL X1 DURING ASSESSMENT. F/C PATENT WITH MODERATE AMOUNT YELLOW COLOR URINE OUT PUT OBSERVED. PLAN OF CARE DISCUSSED WITH PRIMARY RN. INTEGUMENTARY: -MID ABDOMINAL OLD SURGICAL SITE HEALED SCARS -TRACH SITE SHAHBAZ STOMA SKIN DRY AND CLEAN. SKIN INTACT. -GT SITE SHAHBAZ STOMA WITH SKIN INTACT. -INCONTINENT ASSOCIATE DERMATITIS (IAD) TO: B/L GROINS EXTENDED TO PERINEUM, SKIN RED, INTACT -SACROCOCCYX PRESSURE ULCERS WITH 2 WOUND SITES: SITE #1 UN-STAGEABLE PRESSURE ULCER 3X2CM WOUND BED COLOR 100% MIXED BROWN AND DARK PURPLE, PERIWOUND SKIN DENUDED WITH SURROUNDING REDNESS INDICATED FURTHER DAMAGE. SACROCOCCYX PRESSURE ULCER SITE #2 STAGE 4 2X1.5X0.3CM, WOUND BED 100% GRANULATING TISSUE SMALL AMOUNT SEROUS DRAINAGE, NO ODOR, NO UNDERMINING, WOUND EDGE FLAT, SHAHBAZ-WOUND SKIN RED AND MOIST INDICATED FURTHER DAMAGE. -RIGHT AND LEFT HEELS THIN CALLUSES. RECOMMENDATIONS: -APPLY HYDRAGUARD TO R/L GROINS EXTENDED TO PERINEUM BID AND PRN IF SOILING - CLEANSE SACRALCOCCYX WOUNDS WITH WOUND CLEANSING SOLUTION AND APPLY THERAHONEY GEL COVER WITH DRY DRESSING QD AND PRN IF SOILING -APPLY HEEL PROTECTORS TO BOTH HEELS AT ALL TIMES -OFFLOAD BILATERAL HEELS BY PLACING PILLOWS UNDER CALVES UNLESS OTHERWISE CONTRAINDICATED -PRESSURE REDISTRIBUTION SURFACE THERAPY -TURN AND REPOSITION Q2H, OFFLOAD SACRALCOCCYX AND BUTTOCKS BY TURNING RIGHT AND LEFT -CONTINUE TO FOLLOW RD RECOMMENDATIONS ALL ABOVE RECOMMENDATIONS DISCUSSED WITH PRIMARY RN. WILL FOLLOW UP PT Q7-10 DAYS. PLEASE CONTACT WOUND CARE NURSE FOR ANY QUESTION AND CHANGE OF WOUND CONDITION.
[2020-01-26] MEDS: cloNIDine 0.1 MG TAB GT PRN (12:41)
[2020-01-26] MEDS: POTAS GT SCH ×2 (12:41→16:03)
[2020-01-26] MEDS: HYDRAGUARD CREAM TP SCH (12:43)
[2020-01-26] MEDS: THERAHONEY GEL 42.5 GM TP SCH (12:43)
--- NOTE | 2020-01-26 13:00 | NUR ---
PATIENT IS LYING IN BED, HOB ELEVATED. TRACH TO VENT. NO S/S OF DISTRESS NOTED. GT INTACT AND PATENT. GT NO RESIDUAL NOTED. BELL CATHETER INTACT AND DRAINING YELLOW COLORED URINE.
--- NOTE | 2020-01-26 14:05 | NUR ---
01/26/20 RD INITIAL ASSESSMENT COMPLETED PLEASE REFER TO NUTRITION ASSESSMENT UNDER CARE ACTIVITY FOR ESTIMATED NUTRITIONAL NEEDS. 1. RECOMMEND TO INCREASE TUBE FEED RATE OF GLUCERNA 1.2 TO 60 ML/HR AND PROSOURCE QD 2. CONTINUE FREE WATER FLUSH OF 450 ML Q4H 3. CONTINUE MVI QD AND VITAMIN C DAILY FOR WOUND HEALING 4. RD TO FOLLOW-UP 2-3 DAYS, HIGH RISK ALEXANDRU RECINOS RD
--- NOTE | 2020-01-26 15:00 | NUR ---
PATIENT IS RESTING IN BED, NO S/S OF DISTRESS NOTED. TRACH TO VENT. WILL CONTINUE TO MONITOR.
--- NOTE | 2020-01-26 15:30 | NUR ---
PATIENT'S SBP ELEVATED, CLONIDINE 0.1 [address]UE [address]ET. PAGED DR[address] LINN.
--- NOTE | 2020-01-26 15:45 | NUR ---
RECEIVED ORDER FROM DR. LINN TO GIVE HYDRALAZINE 10MG IVP Q4H PRN FOR SBP >160.
[2020-01-26] MEDS: hydrALAZINE 20 MG/ML VIAL IVP PRN (16:03)
--- NOTE | 2020-01-26 16:45 | NUR ---
SBP TRENDING DOWN TO 160/66 AFTER HYDRALAZINE IVP ORDERED. WILL CONTINUE TO MONITOR. PT IN STABLE CONDITION. TRACH TO VENT.
--- NOTE | 2020-01-26 17:30 | NUR ---
PER DR. ELKIN TERRY TO INCREASE FEEDING TO 60ML/HR GLUCERNA 1.2 PER FNS RECOMMENDATION.
--- NOTE | 2020-01-26 17:35 | NUR ---
PATIENT REMAINS STABLE. SBP NOW 156/88, HR 67. NO S/S OF DISTRESS NOTED.
--- NOTE | 2020-01-26 19:00 | NUR ---
RECEIVED REPORT FROM BURT PORTILLO DAYSHIFT AT BEDSIDE FOR CONTINUITY OF CARE, PT IN STABLE CONDITION. PT IS AOX1 TRACH TO VENT AND RR 14 EVEN AND UNLABORED ON AL CURRENT VENT SETTINGS. LUNG SOUNDS DIMINISHED IV SITE INTACT ON RIGHT HAND 20 GUAGE. BELL CATHETER INTACT AND DRAINING YELLOW URINE. ALL FALLS AND SEIZURE AND ASPIRATIONS IN PLACE.
--- NOTE | 2020-01-26 19:00 | NUR ---
PT IN STABLE CONDITION. WILL ENDORSE TO NIGHT NURSE FOR CONTINUITY OF CARE.
--- NOTE | 2020-01-26 21:00 | NUR ---
PT IN BED R 14 AND BREATHING EVEN AND UNLABORED WITH CURRENT VENT SETTINGS. PT SUCTION WITH MINIMAL YELLOW SECRETIONS. ORAL CARE PROVIDED. LUNG SOUNDS DIMINISHED WITH RHALE SOUNDS . PT RECEIVED ORDERED MEDICATIONS OF COREG, FOR HTN ZOSYN FOR SEPSIS AND KEPPRA FOR SEIZURES VIA GT. GT INTACT WITH NO RESIDUAL. TUBE FEEDING GLUCERNA RUNNING ORDERED. BELL CATHETER IN PLACE AND DRAINING YELLOW URINE. ORDERED LANTUS 10 UNITS HELD DUE TO DECREASED FINGERSTICK OF 178. ALL ASPIRATION , SEIZURE AND FALL PRECAUTIONS IN PLACE. V/S FOLLOWS: T 98.7 P 98 R 14 B/P 155/57 02 98% WITH CURRENT VENT SETTINGS.
[2020-01-27] VITALS: BP 174/66
--- NOTE | 2020-01-27 01:00 | NUR ---
PT T 97.0 R 14 B/P 158/60 02 98% WITH VENT SETTINGS , PT WAS TURNED, CLEANED AND REPOSITIONED IN BED WOUND CARE PROVIDED.
[2020-01-27] MEDS: MORPHINE SULFATE 4 MG/ML SYR IVP PRN (01:44)
[2020-01-27] MEDS: INSULIN LISPRO SLIDING SCALE 100 UNITS/ML VIAL SUBQ PRN ×5 (01:52→23:43)
[2020-01-27] MEDS: hydrALAZINE 20 MG/ML VIAL IVP PRN ×2 (01:58→23:41)
[2020-01-27] MEDS: HYDRAGUARD CREAM TP SCH ×2 (01:59→12:09)
--- NOTE | 2020-01-27 02:00 | NUR ---
PT FINGERSTICK IS 171, GIVEN 2 UNITS OF HUMALOG COVERAGE. V/S FOLLOWS: T 98.3 P 61 R 18 B/P 174/66 02 98% WITH ALL CURRENT VENT SETTINGS. HYDRALAZINE PT ALSO MOUTHED THAT SHE HAD SEVERE PAIN IN BACK AND WAS GIVEN MORPHINE.
[2020-01-27 04:00] VITALS: BP 147/60
[2020-01-27] MEDS: PIPERACILLIN/TAZOBACTAM 2.25 GM in DEXTROSE 5% 50 ML IV SCH ×3 (05:32→20:45)
[2020-01-27] MEDS: BLOOD GLUCOSE MONITORING 1 DEV DEV FS SCH ×5 (06:15→23:45)
[2020-01-27] MEDS: ALBUTEROL 0.083% 2.5 MG/3 ML NEBU INH PRN ×2 (06:41→18:59)
--- NOTE | 2020-01-27 07:24 | NUR ---
RECEIVED REPORT FROM STUDIO ENGINEER RN FOR CONTINUITY OF CARE. PATIENT IS TRACH TO VENT. RESPIRATIONS EVEN AND UNLABORED. NO S/S DISTRESS NOTED. PT AWAKE, APHASIC. FLACC-0. G-TUBE SITE INTACT AND PATENT WITH GLUCERNA 1.2 RUNNING AT 60ML/HR. BELL CATHETER IN PLACE, DRAINING, CLEAR YELLOW URINE. IV INTACT AND PATENT TO RIGHT HAND SL AND LEFT HAND WITH IVF ORDERED. PLANS OF CARE DISCUSSED, UNABLE TO COMPREHEND. SAFETY MEASURES IN PLACE. CALL LIGHT WITHIN REACH. BOARD UPDATED. WILL ROUND FREQUENTLY ON PT.
[2020-01-27 08:00] VITALS: BP 162/84
[2020-01-27 08:52] LABS: BASOPHILS % (AUTO) 0.4 % (0.0-2.0); EOSINOPHILS # (AUTO) 0.4 K/uL (0-0.4); HEMATOCRIT 25.9 % (36-48); HEMOGLOBIN 8.4 g/dL (12.0-16.0); LYMPHOCYTES # (AUTO) 1.2 K/uL (2.5-16.5); LYMPHOCYTES % (AUTO) 10.2 % (20.5-51.1); MEAN CORPUSCULAR HEMOGLOBIN 28 pg (27-31); MEAN CORPUSCULAR HGB CONC 33 g/dL (33-37); MEAN CORPUSCULAR VOLUME 85.6 fL (80-94); MONOCYTES # (AUTO) 0.8 K/uL (0.8-1.0); MONOCYTES % (AUTO) 6.7 % (1.7-9.3); NEUTROPHILS # (AUTO) 9.5 K/uL (1.8-7.7); NEUTROPHILS % (AUTO) 79.7 % (42.2-75.2); PLATELET COUNT (AUTO) 326 K/uL (140-450); RED BLOOD CELL COUNT(AUTO) 3.03 MIL/uL (4.20-5.40); WHITE BLOOD COUNT (AUTO) 11.9 K/uL (4.8-10.8)
[2020-01-27 08:59] LABS: ANION GAP 11.5 (8-16); CARBON DIOXIDE 27.7 mmol/L (21-32); CREATININE 1.2 mg/dL (0.6-1.3)
[2020-01-27 09:12] LABS: POTASSIUM 2.2 mmol/L (3.5-5.1)
--- NOTE | 2020-01-27 10:09 | NUR ---
ADMINISTERED MORNING MEDS TO PT. PT TOLERATED WELL. ALL NEEDS CURRENTLY MET.
[2020-01-27] MEDS: ASCORBIC ACID 500 MG/5 ML ORASYR GT SCH (10:17)
[2020-01-27] MEDS: MAGNESIUM OXIDE 400 MG TAB GT SCH (10:18)
[2020-01-27] MEDS: MULTIVITAMIN/MINERALS 1 TAB GT SCH (10:18)
[2020-01-27] MEDS: levETIRAcetam 500 MG TAB PO SCH ×2 (10:18→20:45)
[2020-01-27] MEDS: CARVEDILOL 12.5 MG TAB GT SCH ×2 (10:19→20:45)
[2020-01-27] MEDS: LEVOTHYROXINE 0.075 MG TAB PO SCH (10:19)
[2020-01-27] MEDS: INSULIN LANTUS 100 UNITS/ML 10 ML VIAL SUBQ SCH ×2 (10:20→21:00)
--- NOTE | 2020-01-27 10:34 | NUR ---
PAGED TO NOTIFY OF POTASSIUM 2.2. PAGED 2 TIMES BUT NO REPLY. WILL TRY ONE MORE TIME BEFORE INVOLVING HOUSE SUP. PT STABLE AT THIS TIME.
[2020-01-27] MEDS ORDERED: COMMUNICATION ORDER MC PRN (10:45)
--- NOTE | 2020-01-27 10:47 | NUR ---
RECEIVED PRDERS FROM . WILL FOLLOW ORDERS.
[2020-01-27 12:00] VITALS: BP 95/71
[2020-01-27] MEDS: THERAHONEY GEL 42.5 GM TP SCH (12:09)
[2020-01-27] MEDS: POTASSIUM CHLORIDE 20% 40 MEQ/15 ML UDC GT SCH ×3 (12:16→20:44)
[2020-01-27] MEDS ORDERED: LIDOCAINE IV SCH (13:00)
[2020-01-27] MEDS ORDERED: NACL 0.9% IV SCH (13:00)
[2020-01-27] MEDS ORDERED: POTASSIUM CHLORIDE IV SCH (13:00)
--- NOTE | 2020-01-27 13:43 | NUR ---
PT RESTING IN BED. ALL NEEDS MET. WILL CONTINUE TO ROUND ON PT.
--- NOTE | 2020-01-27 15:20 | NUR ---
PT ASLEEP. ALL NEEDS MET.
[2020-01-27 16:00] VITALS: BP_SYST 151; BP_SYST 159; BP_DIAS 71
--- NOTE | 2020-01-27 17:41 | NUR ---
PT RESTING IN BED. ALL NEEDS MET. WILL CONTINUE TO ROUND ON PT.
--- NOTE | 2020-01-27 19:00 | NUR ---
RECEIVED BEDSIDE REPORT FROM DAY SHIFT NURSE. PATIENT IS AWAKE RESPIRATION EVEN UNLABORED ON TRACH TO VENT. RT AT BEDSIDE. SKIN IS WARM AND DRY. IV PATENT AND INTACT. G-TUBE FEEDING RUNNING AT 60CC/HR NOTED. BELL CATHETER DRAINING YELLOW URINE. PLAN OF UP TO DATE. ALL SAFETY MEASURES IN PLACE. BED IS AT LOW POSITION. CALL LIGHT WITHIN REACH. WILL CONTINUE TO MONITOR.
--- NOTE | 2020-01-27 19:15 | NUR ---
RECEIVED PATIENT TRACH TO MECHANICAL VENT AT DOCUMENTED SETTINGS. VENT CHECK DONE. BERTHA PLUGGED INTO RED OUTLET WITH WHEELS LOCKED. VENT ALARMS ON AND AUDIBLE. CONTINUOUS PULSE OX ON AND FUNCTIONING; ALARMS ON AND AUDIBLE. AMBU BAG AT [facility]. PRN TX ADMINISTERED. TOLERATED TX WELL WITHOUT ADVERSE SIDE EFFECTS. AIRWAY SECURE AND PATENT. SUCTIONED MODERATE AMOUNT OF THICK, YELLOW SECRETIONS. VAP ORAL CARE DONE. NO ACUTE RESPIRATORY DISTRESS NOTED AT THIS TIME. WILL CONTINUE TO MONITOR.
--- NOTE | 2020-01-27 19:35 | NUR ---
ENDORSED PT TO TWINE REELING MACHINE OPERATOR FOR CONTINUITY OF CARE. PT IN STABLE CONDITION AT THIS TIME.
[2020-01-27 20:00] VITALS: BP 155/66
--- NOTE | 2020-01-27 20:00 | NUR ---
INITIAL ASSESSMENT DONE. VITALS WERE TAKEN. CHECKED G-TUBE RESIDUAL OBTAINED 5CC. WILL CONTINUE TO MONITOR.
--- NOTE | 2020-01-27 20:45 | NUR ---
ALL SCHEDULED MEDS WERE GIVEN PER ORDER. NO ASE NOTED. WILL CONTINUE TO MONITOR.
--- NOTE | 2020-01-27 23:00 | NUR ---
SUCTIONED PATIENT OBTAINED SMALL AMOUNT OF CREAMY SPUTUM.
--- NOTE | 2020-01-27 23:30 | NUR ---
VENT CHECK DONE. SUCTIONED SMALL AMOUNT OF THICK, YELLOW SECRETIONS. VAP ORAL CARE DONE. NO ACUTE RESPIRATORY DISTRESS NOTED AT THIS TIME. WILL CONTINUE TO MONITOR.
--- NOTE | 2020-01-27 23:39 | NUR ---
CHECKED PATIENT VITALS. PATIENT BP 170/62 HR 69 RETAKE IT TWICE STILL HIGH. PRN BP MED ADMINISTER PER ORDER. WILL CONTINUE TO MONITOR.
[2020-01-28] VITALS (7 sets, daily range): BP systolic 145–185; BP diastolic 60–75
--- NOTE | 2020-01-28 00:47 | NUR ---
REASSESS PATIENT BP. PATIENT BP 135/55 HR 68. WILL CONTINUE TO MONITOR.
[2020-01-28] MEDS: HYDRAGUARD CREAM TP SCH ×2 (01:11→13:08)
--- NOTE | 2020-01-28 02:02 | NUR ---
CHECKED PATIENT. PATIENT SLEEPING RESPIRATION EVEN UNLABORED ON TRACH TO VENT. NO DISTRESS NOTED. WILL CONTINUE TO MONITOR.
--- NOTE | 2020-01-28 03:30 | NUR ---
VENT CHECK DONE. SUCTIONED SMALL AMOUNT OF THICK, YELLOW SECRETIONS. ORAL VAP CARE DONE. NO ACUTE RESPIRATORY DISTRESS NOTED AT THIS TIME. WILL CONTINUE TO MONITOR.
--- NOTE | 2020-01-28 04:10 | NUR ---
VITALS WERE TAKEN. PATIENT IS IN STABLE CONDITION. NO DISTRESS NOTED. WILL CONTINUE TO MONITOR.
[2020-01-28] MEDS: PIPERACILLIN/TAZOBACTAM 2.25 GM in DEXTROSE 5% 50 ML IV SCH ×2 (04:56→12:59)
--- NOTE | 2020-01-28 05:15 | NUR ---
VENT CHECK DONE. COMPLETE TRACH CARE DONE WITHOUT INCIDENT/RESPIRATORY DIFFICULTY. SUCTIONED SMALL AMOUNT OF THICK, YELLOW SECRETIONS. NO ACUTE RESPIRATORY DISTRESS NOTED AT THIS TIME. WILL CONTINUE TO MONITOR.
--- NOTE | 2020-01-28 05:30 | NUR ---
CHANGED PATIENT. PROVIDED GOOD SHAHBAZ CARE AND CATHETER CARE.
[2020-01-28] MEDS: INSULIN LISPRO SLIDING SCALE 100 UNITS/ML VIAL SUBQ PRN ×5 (06:05→23:50)
[2020-01-28] MEDS: BLOOD GLUCOSE MONITORING 1 DEV DEV FS SCH ×3 (06:08→17:35)
[2020-01-28 06:24] LABS: ANION GAP 11.8 (8-16); CREATININE 1.2 mg/dL (0.6-1.3)
[2020-01-28 06:26] LABS: BASOPHILS % (AUTO) 0.4 % (0.0-2.0); EOSINOPHILS # (AUTO) 0.3 K/uL (0-0.4); EOSINOPHILS % (AUTO) 2.9 % (0.0-4.0); HEMATOCRIT 24.7 % (36-48); HEMOGLOBIN 8.1 g/dL (12.0-16.0); LYMPHOCYTES # (AUTO) 1.3 K/uL (2.5-16.5); LYMPHOCYTES % (AUTO) 11.5 % (20.5-51.1); MEAN CORPUSCULAR HEMOGLOBIN 28 pg (27-31); MEAN CORPUSCULAR HGB CONC 33 g/dL (33-37); MEAN CORPUSCULAR VOLUME 86.8 fL (80-94); MONOCYTES # (AUTO) 0.8 K/uL (0.8-1.0); MONOCYTES % (AUTO) 7.1 % (1.7-9.3); NEUTROPHILS # (AUTO) 8.6 K/uL (1.8-7.7); NEUTROPHILS % (AUTO) 78.1 % (42.2-75.2); PLATELET COUNT (AUTO) 342 K/uL (140-450); RED BLOOD CELL COUNT(AUTO) 2.85 MIL/uL (4.20-5.40); RED CELL DISTRIBUTION WIDTH 16.4 % (11.6-13.7); WHITE BLOOD COUNT (AUTO) 11.1 K/uL (4.8-10.8)
--- NOTE | 2020-01-28 06:45 | NUR ---
RECEIVED CRITICAL LAB K 2.8. PATIENT POTASSIUM IMPROVING ENDORSED TO DAY SHIFT TO RELAY THE CRITICAL LAB TO
[2020-01-28 06:51] LABS: POTASSIUM 2.8 mmol/L (3.5-5.1)
--- NOTE | 2020-01-28 07:05 | NUR ---
REC'D PT ON [employer] VENT SETTINGS AC14 VT450 PEEP 5 FIO2 30% ALARMS ON AND AUDIBLE AND AMBU BAG AT SIDE OF VENT AND VENT IS PLUGGED INTO RED OUTLET, SXN PT SMALL AMT OF THICK YELLOW SECRETIONS, B\S ARE COARSE BILATERALLY, PT IS TRACH WITH SHILEY 6 AND NO HHN GIVEN
--- NOTE | 2020-01-28 07:11 | NUR ---
RECEIVED REPORT FROM BANDAR WEBSTER. PT AOX1, APHASIC, FLACC 0. ON TRACH TO VENT -TV 272, FiO2 27%, RR 22. PT ON DEVELOPMENT ASSISTANT, SR. LBM 01/27, SOFT ABD, ACTIVE BS. PT HAS G-TUBE IN PLACE, ON CONTINUOUS TUBE FEEDING -GLUCERNA 1.2 60ML/HR, WATER FLUSH 450ML Q4H. F/C IN PLACE, DRAINING YELLOW CLEAR URINE. PT ON FALL RISK PRECAUTIONS, BED ALARMS ON, SAFETY MEASURES IN PLACE, CALL LIGHT WITHIN REACH. REVIEWED POC WITH PT, WILL NEED REINFORCEMENT.
--- NOTE | 2020-01-28 07:16 | NUR ---
ENDORSED PATIENT TO DAY SHIFT NURSE. PATIENT IS IN STABLE CONDITION.
[2020-01-28] MEDS ORDERED: POTASSIUM CHL 40 MEQ/ D5-1/2NS 1,000 ML IV SCH (07:45)
[2020-01-28] MEDS: ASCORBIC ACID 500 MG/5 ML ORASYR GT SCH (07:53)
[2020-01-28] MEDS: MAGNESIUM OXIDE 400 MG TAB GT SCH (07:53)
[2020-01-28] MEDS: CARVEDILOL 12.5 MG TAB GT SCH ×2 (07:53→21:10)
[2020-01-28] MEDS: MULTIVITAMIN/MINERALS 1 TAB GT SCH (07:53)
[2020-01-28] MEDS: LEVOTHYROXINE 0.075 MG TAB PO SCH (07:54)
[2020-01-28] MEDS: levETIRAcetam 500 MG TAB PO SCH ×2 (07:54→21:10)
[2020-01-28] MEDS ORDERED: KCL 20 MEQ/WATER INJ PREMIX 200 ML IV ONE (08:05)
[2020-01-28] MEDS ORDERED: KCL 20 MEQ/WATER INJ PREMIX 100 ML IV ONE (08:05)
[2020-01-28] MEDS ORDERED: POTASSIUM CHLORIDE 40 MEQ, LIDOCAINE MPF 1% 25 MG in NACL 0.9% 250 ML IV ONE (08:10)
[2020-01-28] MEDS: INSULIN LANTUS 100 UNITS/ML 10 ML VIAL SUBQ SCH ×2 (08:10→21:23)
[2020-01-28] MEDS ORDERED: POTASSIUM CHLORIDE 20 MEQ, LIDOCAINE MPF 1% 25 MG in NACL 0.9% 250 ML IV ONE (08:10)
--- NOTE | 2020-01-28 08:10 | NUR ---
ADMINISTERED MEDICATIONS PER ORDER, REVIEWED INDICATIONS AND POTENTIAL SIDE EFFECTS OF EACH, PT UNABLE TO VERBALIZE, PT IS APHASIC.
[2020-01-28] MEDS: cloNIDine 0.1 MG TAB GT PRN (09:46)
[2020-01-28] MEDS ORDERED: NACL 0.9% IV SCH (10:30)
[2020-01-28] MEDS ORDERED: POTASSIUM CHLORIDE IV SCH (10:30)
[2020-01-28] MEDS ORDERED: LIDOCAINE IV SCH (10:30)
--- NOTE | 2020-01-28 10:30 | NUR ---
RECEIVED CALL FROM DR. AGGARWAL THAT K-RIDER 60 MEQ TO BE ADMINISTERED TO PATIENT TODAY, READ BACK ORDER, PHYSICIAN CONFIRMED.
[2020-01-28] MEDS: LOSARTAN 25 MG TAB GT SCH (11:33)
[2020-01-28] MEDS: POTASSIUM CHL 20 MEQ / DEXT 5% 1,000 ML IV SCH ×2 (11:35→23:52)
[2020-01-28] MEDS: POTASSIUM CHLORIDE 20% 40 MEQ/15 ML UDC GT SCH ×3 (11:37→21:10)
--- NOTE | 2020-01-28 11:45 | NUR ---
RECEIVED CALL FROM DR. LINN, PER PHYSICIAN, SAFE TO ADMINISTER ADDITIONAL ORDERS, READ BACK ORDER, PHYSICIAN CONFIRMED.
[2020-01-28] MEDS: hydrALAZINE 20 MG/ML VIAL IVP PRN ×2 (12:57→18:34)
[2020-01-28] MEDS: THERAHONEY GEL 42.5 GM TP SCH (13:09)
--- NOTE | 2020-01-28 13:15 | NUR ---
DR. LINN AT BEDSIDE DOING ASSESSMENT ON PT. NO NEW ORDERS RECEIVED AT THIS TIME. GIVEN SHAHBAZ CARE, ASSESSED WOUND AND CHANGED WOUND DRESSING. PT HAS NO S/S OF DISTRESS, FLACC 0.
--- NOTE | 2020-01-28 15:20 | NUR ---
PT RESTING IN BED IN SUPINE POSITION, NO S/S OF DISCOMFORT OR DISTRESS.
--- NOTE | 2020-01-28 15:22 | NUR ---
01/28/20 RD FOLLOW UP COMPLETED PLEASE REFER TO NUTRITION ASSESSMENT UNDER CARE ACTIVITY FOR ESTIMATED NUTRITIONAL NEEDS. 1.CONTINUE GLUCERNA 1.2 @ 60 ML/HR -THIS WILL PROVIDE 1728 KCAL AND 86 GM OF PROTEIN, WHICH WILL MEET 100% OF PATIENTS ESTIMATED NUTRIENT NEEDS 2. CONTINUE FREE WATER FLUSH OF 450 ML Q4H 3. CONTINUE MVI QD AND VITAMIN C DAILY FOR WOUND HEALING 4. RD TO FOLLOW-UP 2-3 DAYS, HIGH RISK ALEXANDRU RECINOS RD
--- NOTE | 2020-01-28 17:30 | NUR ---
CHANGED PT'S BLANKETS. PROVIDED MOUTH MOISTURIZER AND ORAL CARE.
--- NOTE | 2020-01-28 19:15 | NUR ---
ENDORSED PT TO BANDAR WEBSTER. PT HAS NO S/S OF DISTRESS AT THIS TIME.
--- NOTE | 2020-01-28 19:18 | NUR ---
RECEIVED BEDSIDE REPORT FROM DAY SHIFT NURSE. PATIENT IS AWAKE RESPIRATION EVEN UNLABORED ON TRACH TO VENT. SKIN IS WARM AND DRY. IV PATENT AND INTACT. G-TUBE FEEDING RUNNING AT 60CC/HR NOTED. BELL CATHETER DRAINING YELLOW URINE. PLAN OF UP TO DATE. ALL SAFETY MEASURES IN PLACE. BED IS AT LOW POSITION. CALL LIGHT WITHIN REACH. WILL CONTINUE TO MONITOR.
--- NOTE | 2020-01-28 20:00 | NUR ---
INITIAL ASSESSMENT DONE. VITALS WERE TAKEN. CHECKED PATIENT G-TUBE RESIDUAL. OBTAINED 0CC. WILL CONTINUE TO MONITOR.
[2020-01-28] MEDS ORDERED: POTASSIUM CHLORIDE 20% 40 MEQ/15 ML UDC ONE (21:07)
--- NOTE | 2020-01-28 21:10 | NUR ---
ALL SCHEDULED MEDS WERE GIVEN PER ORDER. NO ASE NOTED. WILL CONTINUE TO MONITOR.
--- NOTE | 2020-01-28 22:17 | NUR ---
CHECKED PATIENT. SUCTIONED PATIENT. OBTAINED SMALL AMOUNT OF SECRETION. WILL CONTINUE TO MONITOR.
[2020-01-29] VITALS: BP 163/66
[2020-01-29] MEDS: BLOOD GLUCOSE MONITORING 1 DEV DEV FS SCH ×4 (00:03→18:00)
--- NOTE | 2020-01-29 00:05 | NUR ---
VITALS WERE TAKEN. PATIENT IS IN STABLE CONDITION. PROVIDED ORAL CARE FOR PATIENT. WILL CONTINUE TO MONITOR.
--- NOTE | 2020-01-29 00:30 | NUR ---
PATIENT BP 163/66 HR 72. PRN BP MED ADMINISTERED PER ORDER. WILL CONTINUE TO MONITOR.
[2020-01-29] MEDS: HYDRAGUARD CREAM TP SCH ×2 (00:33→12:31)
[2020-01-29] MEDS: hydrALAZINE 20 MG/ML VIAL IVP PRN ×3 (00:33→16:07)
--- NOTE | 2020-01-29 02:00 | NUR ---
CHECKED PATIENT. PATIENT SLEEPING RESPIRATION EVEN UNLABORED ON TRACH TO VENT. NO DISTRESS NOTED. WILL CONTINUE TO MONITOR.
[2020-01-29 04:00] VITALS: BP 176/75
--- NOTE | 2020-01-29 04:00 | NUR ---
VITALS WERE TAKEN. PATIENT BP IS 176/75 HR 74. PRN BP MED ADMINISTER MEDS PER ORDER. WILL CONTINUE TO MONITOR.
[2020-01-29] MEDS: cloNIDine 0.1 MG TAB GT PRN ×2 (04:16→08:21)
--- NOTE | 2020-01-29 05:23 | NUR ---
CHANGED PATIENT. PROVIDED GOOD PERICARE AND CATHETER CARE.
[2020-01-29] MEDS: INSULIN LISPRO SLIDING SCALE 100 UNITS/ML VIAL SUBQ PRN ×2 (05:42→12:27)
[2020-01-29 05:57] LABS: BASOPHILS # (AUTO) 0.1 K/uL (0.00-0.22); RED CELL DISTRIBUTION WIDTH 16.6 % (11.6-13.7)
[2020-01-29 06:18] LABS: BASOPHILS % (AUTO) 0.6 % (0.0-2.0); EOSINOPHILS # (AUTO) 0.5 K/uL (0-0.4); EOSINOPHILS % (AUTO) 4.8 % (0.0-4.0); HEMATOCRIT 25.5 % (36-48); HEMOGLOBIN 8.3 g/dL (12.0-16.0); LYMPHOCYTES # (AUTO) 1.3 K/uL (2.5-16.5); LYMPHOCYTES % (AUTO) 11.7 % (20.5-51.1); MEAN CORPUSCULAR HEMOGLOBIN 29 pg (27-31); MEAN CORPUSCULAR HGB CONC 33 g/dL (33-37); MEAN CORPUSCULAR VOLUME 88.1 fL (80-94); MONOCYTES # (AUTO) 0.7 K/uL (0.8-1.0); MONOCYTES % (AUTO) 6.8 % (1.7-9.3); NEUTROPHILS # (AUTO) 8.2 K/uL (1.8-7.7); NEUTROPHILS % (AUTO) 76.1 % (42.2-75.2); PLATELET COUNT (AUTO) 361 K/uL (140-450); RED BLOOD CELL COUNT(AUTO) 2.89 MIL/uL (4.20-5.40); WHITE BLOOD COUNT (AUTO) 10.8 K/uL (4.8-10.8)
[2020-01-29 06:37] LABS: ANION GAP 12.5 (8-16); POTASSIUM 3.5 mmol/L (3.5-5.1)
--- NOTE | 2020-01-29 07:00 | NUR ---
RECEIVED PT ON VENT WITH SETTING CHARTED SB PRESENT BILAT, CLEAR SUCTIONED PT WITH MINIMUM AMOUNT OFF WHITE SECRETIONS. TRACH SITE SECURE, AMBU BAG BEDSIDE, VENT PLUGGED INTO RED OUTLET, WILL CONTINUE TO MONITOR PT ON VENT.
--- NOTE | 2020-01-29 07:15 | NUR ---
RECEIVED REPORT FROM TRANSMISSION SUPERINTENDENT NURSE. NO S/S OF PAIN, RESPIRATION EVEN UNLABORED,ON VENT.IV G22 ON RFA IV PATENT AND INTACT. G-TUBE FEEDING RUNNING AT 60CC/HR NOTED. TOLERATING WELL. BELL CATHETER INTACT AND PATENT DRAINING CLEAR YELLOW URINE. ALL SAFETY MEASURES IN PLACE. BED IS AT LOW POSITION. CALL LIGHT WITHIN REACH. WILL CONTINUE TO MONITOR. Addendum: 01/29/20 at 0733 by Tom Pacheco RN RECEIVED REPORT FROM TRANSMISSION SUPERINTENDENT NURSE. NO S/S OF PAIN, RESPIRATION EVEN UNLABORED,ON VENT.IV G20 ON RH IV PATENT AND INTACT. G-TUBE FEEDING RUNNING AT 60CC/HR NOTED. TOLERATING WELL. BELL CATHETER INTACT AND PATENT DRAINING CLEAR YELLOW URINE. ALL SAFETY MEASURES IN PLACE. BED IS AT LOW POSITION. CALL LIGHT WITHIN REACH. WILL CONTINUE TO MONITOR. Addendum: 01/29/20 at 1246 by Tom Pacheco RN SPECIFIED TIME OF ENDORSEMENT FOR THE ABOVE NOTES IS 3554
--- NOTE | 2020-01-29 07:17 | NUR ---
ENDORSED PATIENT TO DAY SHIFT NURSE. PATIENT IS IN STABLE CONDITION.
[2020-01-29 08:00] VITALS: BP 177/68
[2020-01-29] MEDS: MULTIVITAMIN/MINERALS 1 TAB GT SCH (08:19)
[2020-01-29] MEDS: ASCORBIC ACID 500 MG/5 ML ORASYR GT SCH (08:19)
[2020-01-29] MEDS: levETIRAcetam 500 MG TAB PO SCH (08:20)
[2020-01-29] MEDS: LOSARTAN 25 MG TAB GT SCH (08:21)
[2020-01-29] MEDS: CARVEDILOL 12.5 MG TAB GT SCH (08:21)
[2020-01-29] MEDS: MAGNESIUM OXIDE 400 MG TAB GT SCH (08:22)
[2020-01-29] MEDS: LEVOTHYROXINE 0.075 MG TAB PO SCH (08:22)
--- NOTE | 2020-01-29 08:30 | NUR ---
DUE MORNING MEDS GIVEN VIA GT. GT INTACT AND PATENT, NO RESIDUALS NOTED, TOLERATING WELL. BP 177/68, HR 66. PRN CATAPRES GIVEN ORDERED. WILL RECHECK BP IN AN HOUR.
[2020-01-29] MEDS: INSULIN LANTUS 100 UNITS/ML 10 ML VIAL SUBQ SCH (08:32)
[2020-01-29] MEDS ORDERED: POTASSIUM CHLORIDE 20% 40 MEQ/15 ML UDC NG SCH (10:12)
--- NOTE | 2020-01-29 10:38 | NUR ---
BP 181/79, HR 66. APRESOLINE IVP GIVEN ORDERED. WILL RECHECK BP IN 1 HOUR.
[2020-01-29 12:00] VITALS: BP 153/63
[2020-01-29] MEDS: POTASSIUM CHL 20 MEQ / DEXT 5% 1,000 ML IV SCH (12:30)
--- NOTE | 2020-01-29 12:30 | NUR ---
PT'S BLOOD GLUCOSE WAS CHECKED, RESULT IS 220, INSULIN 4 UNITS WAS GIVEN ON THE LEFT UA, A NEW BAG OF IVF OF DEXTROSE 5% 20MEQ KCL WAS STARTED TO PT, V/S RE-ASSESSED AND IS 153/63, PULSE IS 71, NO SIGN OF DISTRESS NOTED AND WILL MONITOR PT.
[2020-01-29] MEDS: THERAHONEY GEL 42.5 GM TP SCH (12:31)
[2020-01-29] MEDS ORDERED: LOSA25TA1 GT (12:53)
[2020-01-29] MEDS ORDERED: PIPE1PDS26 IV (12:54)
[2020-01-29] MEDS ORDERED: POTA20LI GT (12:55)
[2020-01-29] MEDS ORDERED: PIPERACILLIN/TAZOBACTAM 3.375 GM in DEXTROSE 5% 50 ML IV SCH (13:00)
--- NOTE | 2020-01-29 13:10 | NUR ---
PT WAS GIVEN IV ZOSYN VIA PIGGYBACK NOW. WILL MONITOR PT.
--- NOTE | 2020-01-29 13:56 | NUR ---
DC PLANNING FAXED ALL THE PAPER WORK TO [facility] AND [facility] [place]. CM TO FOLLOW Addendum: 01/29/20 at 1502 by Martha Mackey CM DC PLANNING RECEIVED A CALL FROM [facility] [place] SPOKE WITH RISHABH ROCHE PT CAN GO TO ROOM 7B UNDER THE CARE OF DR SAVI BYERS TRANSPORT FROM [facility] [id number] ARRANGED TRANSPORT WITH [facility] MEDICAL INSTRUMENT TECHNICIAN TIME 5 PM NOTIFIED NESTOR PORTILLO
[2020-01-29 16:00] VITALS: BP 180/77
--- NOTE | 2020-01-29 16:07 | NUR ---
WITH BP OF 180/77, HR 68. PRN APRESOLINE GIVEN ORDERED. WILL RECHECK BP IN 1 HOUR
--- NOTE | 2020-01-29 16:25 | NUR ---
CALLED [facility] AT [phone] AND GAVE REPORT TO BANDAR AMARO, REGARDING THE CARE MANAGEMENT OF PT, AND RN VERBALIZED UNDERSTANDING, INFORMED THAT PT WILL B GOING TO RM 7-B UNDER THE SERVICE OF DR. HOU, AND INFORMED THAT PT NEEDS TO HAVE A BMP CHECK IN A WEEK TO MONITOR POTASSIUM AND SODIUM LEVELS.
[2020-01-29 17:10] VITALS: BP 149/73
--- NOTE | 2020-01-29 17:35 | NUR ---
DISCHARGED PT TO [facility]IA [facility] ACCOMPANIED BY 3 TRANSPORT PERSONNEL. REPORT GIVEN TO TRANSPORT PERSONNEL. V/S BP 149/ 73, HR 68 T 96.8 RR 18 WNL, NO RESPIRATORY DISTRESS, AFEBRILE. PERIPHERAL LINES KEPT INTACT FOR CONTINUATION OF IV ANTIBIOTIC. ID BAND REMOVED. PT STABLE AT THIS TIME
== END 2020-01-29 17:35 | DRG 720 ==
LOC: MED 00:32 → MTU 01:47
PROVIDERS: ADMIT Internal Medicine Pulmonary Disease; ATTEND Internal Medicine Pulmonary Disease
PROC: 5A1955Z Respiratory Ventilation, Greater than 96 Consecutive Hours (ICD-10-PCS; principal; 2020-01-24)
PROC: 30230N1 Transfusion of Nonautologous Red Blood Cells into Peripheral Vein, Open Approach (ICD-10-PCS; 2020-01-25)
DX: A41.9 Sepsis, unspecified organism (principal); J96.21 Acute and chronic respiratory failure with hypoxia; Z99.11 Dependence on respirator [ventilator] status; J18.9 Pneumonia, unspecified organism; G93.1 Anoxic brain damage, not elsewhere classified; R53.2 Functional quadriplegia; Z93.0 Tracheostomy status; E87.0 Hyperosmolality and hypernatremia; E86.9 Volume depletion, unspecified; N39.0 Urinary tract infection, site not specified; G40.909 Epilepsy, unspecified, not intractable, without status epilepticus; Z95.0 Presence of cardiac pacemaker; D64.9 Anemia, unspecified; E03.9 Hypothyroidism, unspecified; E11.9 Type 2 diabetes mellitus without complications; E66.9 Obesity, unspecified; E87.6 Hypokalemia; I10 Essential (primary) hypertension; Z86.718 Personal history of other venous thrombosis and embolism; Z86.73 Personal history of transient ischemic attack (TIA), and cerebral infarction without residual deficits
CPT/HCPCS: 36415; 36600; 71045; 80048; 80053; 81001; 82272; 82803; 82948; 83036; 83605; 83735; 85025; 85610; 85730; 86886; 86900; 86901; 86920; 87040; 87081; 87086; 93005; 94002; 94003; 94640; 96361; 96365; 96368; 99291; J0360; J1815; J2001; J2185; J2270; J2543; J3370; J3480; J7030; J7060; J7070; J7120; J7613; P9016; Q0092

== ENCOUNTER 2020-11-09 10:39 | Inpatient (IN) | payer OTHER, SELFPAY ==
[~2020-11-09] VITALS: Ht 172.7 cm; Wt 72.7 kg
[2020-11-09] VITALS (7 sets, daily range): BP systolic 120–180; BP diastolic 57–89
[~2020-11-09 10:39] MED LIST changes: -CARV12.52 PO; +CARV25TA GT; -CLON0.1T42 GT; +CLON0.1T42 PO; +COL100L GT; +ELA25 GT; +EPOE40002 SQ; +FERR-13 GT; -INSU100S5 IJ; +INSU100S5 SQ; +LOSA100T51 GT; +LOV40I SUBQ; -MERO500V13 IV; -MULT-1328 GT; +POTA10TE30 PO; -POTA20LI GT; +SERT100T GT; -TRAM50TA1 GT; +ZINC220C28 GT
[2020-11-09] MEDS ORDERED: NACL 0.9% 500 ML IV ONE (10:45)
--- NOTE | 2020-11-09 10:45 | NUR ---
65/F FROM COMM. EXTENDED CARE WITH C/O LOW HGB. PT IS CHRONIC TRACH TO VENT. PT APPEARS AT BASELINE NO ACTIVE BLEEDING. NO OBVIOUS DISTRESS NOTED. VITAL SIGNS WNL.
--- NOTE | 2020-11-09 10:50 | NUR ---
RECEIVED FROM [facility] PLACED ON A [employer] CONNOLLY VENTILATOR PLUGGED INTO RED OUTLET TOLERATING WELL WITHOUT ADVERSE REACTIONS NOTED TO A PORTEX DCT #8 AIRWAY SECURED WITH A PORTEX TRACH TIE CUFF PRESSURE CHECKED AT [id number] LOC AWAKE AND ALERT GOOD CHEST RISE DEEP TRACHEAL SUCTION FOR MODERATE THICK PALE YELLOW SECRETIONS AIRWAY PATENT
--- NOTE | 2020-11-09 11:00 | NUR ---
XRAY AT BEDSIDE.
[2020-11-09 11:28] LABS: BASOPHILS % (AUTO) 0.2 % (0.0-2.0); EOSINOPHILS # (AUTO) 1.3 K/uL (0-0.4); LYMPHOCYTES # (AUTO) 1.7 K/uL (2.5-16.5); LYMPHOCYTES % (AUTO) 9.6 % (20.5-51.1); MEAN CORPUSCULAR HEMOGLOBIN 27 pg (27-31); MEAN CORPUSCULAR HGB CONC 31 g/dL (33-37); MEAN CORPUSCULAR VOLUME 86.8 fL (80-94); MONOCYTES # (AUTO) 0.9 K/uL (0.8-1.0); MONOCYTES % (AUTO) 5.2 % (1.7-9.3); PLATELET COUNT (AUTO) 435 K/uL (140-450); RED BLOOD CELL COUNT(AUTO) 2.15 MIL/uL (4.20-5.40); RED CELL DISTRIBUTION WIDTH 17.9 % (11.6-13.7)
[2020-11-09 11:40] LABS: HEMATOCRIT 18.7 % (36-48); HEMOGLOBIN 5.8 g/dL (12.0-16.0)
[2020-11-09 11:44] LABS: PROTHROMBIN TIME 10.5 secs (10.8-13.4)
[2020-11-09] MEDS ORDERED: PIPERACILLIN/TAZOBACTAM 3.375 GM in DEXTROSE 5% 50 ML IV ONE (11:55)
[2020-11-09] MEDS ORDERED: AZITHROMYCIN 1,000 MG in DEXTROSE 5% 500 ML IV ONE (11:55)
[2020-11-09 12:05] LABS: APPEARANCE,URINE HAZY (CLEAR); BILIRUBIN,URINE NEGATIVE (NEGATIVE); BLOOD, URINE 1+ (NEGATIVE); COLOR,URINE YELLOW (YELLOW); LEUKOCYTE ESTERASE ,URINE 2+ (NEGATIVE); NITRITE, URINE POSITIVE (NEGATIVE); PH,URINE 6.5 (5.0-9.0); UGLUCOSE NEGATIVE (NEGATIVE)
[2020-11-09] MEDS ORDERED: PIPERACILLIN/TAZOBACTAM 3.375 GM VIAL IV ONE (12:14)
[2020-11-09 12:16] LABS: RBC,URINE NONE SEEN /HPF (0-5); WBC,URINE 20-60 /HPF (0-5)
[2020-11-09] MEDS ORDERED: LEVOFLOXACIN 500 MG/D5W PREMIX 100 ML IV ONE ×2 (12:20→15:34)
--- NOTE | 2020-11-09 12:41 | NUR ---
RECD CALL FROM LAB, PT HAS + ANTIBODIES AND WILL REQUIRE A REDRAW AND REQUIRES A SEND OUT TO [facility]. POSSIBLE DELAY IN TRANSFUSION.
[2020-11-09 12:45] LABS: ALBUMIN 1.5 g/dL (3.4-5.0); ANION GAP 15.2 (8-16); CARBON DIOXIDE 24.5 mmol/L (21-32); CREATININE 1.8 mg/dL (0.6-1.3); POTASSIUM 4.7 mmol/L (3.5-5.1); TOTAL BILIRUBIN 0.2 mg/dL (0.0-1.0)
--- NOTE | 2020-11-09 12:45 | NUR ---
IV CANNULA G24 INSERTED AT LEFT HAND,A SYMPTOMATIC AND PATENT
--- NOTE | 2020-11-09 13:05 | NUR ---
URINE SAMPLE COLLECTED IM BELL CATHETER FOR URINALYSIS AND CULTURE/ SENSITIVITY, SENT TO LAB
[2020-11-09] MEDS ORDERED: AZITHROMYCIN 500 MG INJ VIAL IV ONE (13:21)
--- NOTE | 2020-11-09 13:45 | NUR ---
RESTING WELL NO APPARENT PULMONARY DISTRESS NOTED GOOD CHEST RISE DEEP TRACHEAL SUCTION FOR MODERATE THICK YELLOW SECRETIONS AIRWAY PATENT
--- NOTE | 2020-11-09 14:10 | NUR ---
COVID IAN AND PCR SWAB DONE AND SENT TO LAB
[2020-11-09] MEDS ORDERED: ONDANSETRON 4 MG/2 ML VIAL IVP PRN (14:55)
[2020-11-09] MEDS ORDERED: POTASSIUM CHLORIDE 10 MEQ TABER PO PRN (14:55)
[2020-11-09] MEDS ORDERED: ACETAMINOPHEN 325 MG TAB PO PRN (14:55)
[2020-11-09] MEDS ORDERED: HYDROcodone/APAP 5/325 MG 1 TAB TAB PO PRN (14:55)
[2020-11-09] MEDS ORDERED: MAG SULF 2000 MG/WATER PREMIX 50 ML IV PRN (14:55)
[2020-11-09] MEDS ORDERED: MORPHINE SULFATE 4 MG/ML SYR IVP PRN (14:55)
--- NOTE | 2020-11-09 14:55 | NUR ---
ADMITTED A CASE OF ACUTE ON CKD, NSTEMI UNDER CARE OF DR. CRAWFORD, TELEMETRY.
[2020-11-09] MEDS: NACL 0.9% 1,000 ML IV SCH (15:38)
--- NOTE | 2020-11-09 16:05 | NUR ---
DUE ANTIBIOTIC GIVEN, NO ADVERSE REACTION NOTED. ORAL SUCTIONING WITH YANKEUR DONE, NOT IN DISTRESS NOTED
--- NOTE | 2020-11-09 17:30 | NUR ---
RESTING WELL NO DISTRESS NOTED DEEP TRACHEAL SUCTION FOR MODERATE THICK YELLOW SECRETIONS AIRWAY PATENT
--- NOTE | 2020-11-09 18:04 | NUR ---
DR. CRAWFORD, ATTENDING PHYSICIAN PAGE TO VERIFY THE ORDER OF RBC TRANSFUSION.
--- NOTE | 2020-11-09 18:10 | NUR ---
DR. ANTONY CALLED AND ORDERED TO TRANSFUSE 2 UNITS PACKED RBC
--- NOTE | 2020-11-09 18:19 | NUR ---
IMMEDIATE FAMILY CONTACTED THE MOTHER IN LAW AND FATHER IN LAW, NO ANSWER.
--- NOTE | 2020-11-09 19:30 | NUR ---
RECEIVED REPORT FROM BANDAR JUAREZ FOR CONTINUATION OF CARE
--- NOTE | 2020-11-09 19:30 | NUR ---
PT LAYING SUPINE WITH HOB IN SEMI-FOWLERS POSITION. RISE AND FALL OF CHEST NOTED PT IS CHRONIC TRACH TO VENT NO ACUTE DISTRESS NOTED. PT CONNECTED TO THE CORK WIRER. PT IS NOT IN ANY ACUTE DISTRESS AT THIS TIME. BED IS LOCKED AND IN LOWEST POSITION. SIDE RAILSX2 FOR PT PROTECTION DUE TO INABILITY TO AMBULATE. WILL CONTINUE TO MONITOR.
--- NOTE | 2020-11-09 19:35 | NUR ---
ENDORSED TP PLANTING SUPERVISOR IN STABLE CONDITION FOR CONTINUITY OF CARE
--- NOTE | 2020-11-09 21:30 | NUR ---
PT LAYING SUPINE WITH HOB IN SEMI-FOWLERS POSITION. RISE AND FALL OF CHEST NOTED PT IS CHRONIC TRACH TO VENT NO ACUTE DISTRESS NOTED. PT CONNECTED TO THE ARMOURED CAR ESCORT. PT IS NOT IN ANY ACUTE DISTRESS AT THIS TIME. BED IS LOCKED AND IN LOWEST POSITION. SIDE RAILSX2 FOR PT PROTECTION DUE TO INABILITY TO AMBULATE. WILL CONTINUE TO MONITOR.
--- NOTE | 2020-11-09 22:20 | NUR ---
SPOKE WITH LAB REGARDING ORDERS FOR PRBCs. PER LAB, STATED THAT SHE WILL HAVE TO ORDER PRBCs THROUGH [facility]. ETA FOR PRBCs UNSPECIFIED AT THIS TIME.
--- NOTE | 2020-11-09 23:30 | NUR ---
PT LAYING SUPINE WITH HOB IN SEMI-FOWLERS POSITION. RISE AND FALL OF CHEST NOTED PT IS CHRONIC TRACH TO VENT NO ACUTE DISTRESS NOTED. PT CONNECTED TO THE SOFTWARE DEVELOPMENT PROJECT MANAGER. PT IS NOT IN ANY ACUTE DISTRESS AT THIS TIME. BED IS LOCKED AND IN LOWEST POSITION. SIDE RAILSX2 FOR PT PROTECTION DUE TO INABILITY TO AMBULATE. WILL CONTINUE TO MONITOR.
[2020-11-09] MEDS ORDERED: PIPERACILLIN/TAZOBACTAM 2.25 GM VIAL IV ONE (23:58)
[2020-11-10] MEDS: PIPERACILLIN/TAZOBACTAM 2.25 GM in DEXTROSE 5% 50 ML IV SCH ×4 (00:14→20:36)
--- NOTE | 2020-11-10 01:36 | NUR ---
PT LAYING SUPINE WITH HOB IN SEMI-FOWLERS POSITION. RISE AND FALL OF CHEST NOTED PT IS CHRONIC TRACH TO VENT NO ACUTE DISTRESS NOTED. PT CONNECTED TO THE STREET CLEANING EQUIPMENT OPERATOR. PT IS NOT IN ANY ACUTE DISTRESS AT THIS TIME. BED IS LOCKED AND IN LOWEST POSITION. SIDE RAILSX2 FOR PT PROTECTION DUE TO INABILITY TO AMBULATE. WILL CONTINUE TO MONITOR.
--- NOTE | 2020-11-10 02:40 | NUR ---
PT IS RESTING. RISE AND FALL OF CHEST NOTED--- PT IS CHRONIC TRACH TO VENT NO ACUTE DISTRESS NOTED. PT CONNECTED TO THE TERMINAL CARMAN. PT IS NOT IN ANY ACUTE DISTRESS AT THIS TIME. BED IS LOCKED AND IN LOWEST POSITION. SIDE RAILSX2 FOR PT PROTECTION DUE TO INABILITY TO AMBULATE. WILL CONTINUE TO MONITOR
[2020-11-10] MEDS: NACL 0.9% 1,000 ML IV SCH ×2 (04:11→16:34)
--- NOTE | 2020-11-10 04:18 | NUR ---
PT IS RESTING. RISE AND FALL OF CHEST NOTED PT IS CHRONIC TRACH TO VENT, SAO2 @100%. NO ACUTE DISTRESS NOTED. PT CONNECTED TO THE COMMUNITY HEALTH NAVIGATOR. PT IS NOT IN ANY ACUTE DISTRESS AT THIS TIME. BED IS LOCKED AND IN LOWEST POSITION. SIDE RAILSX2 FOR PT PROTECTION DUE TO INABILITY TO AMBULATE. WILL CONTINUE TO MONITOR
--- NOTE | 2020-11-10 04:53 | NUR ---
[facility] SWAB COLLECTED AND WALKED OVER TO LAB
[2020-11-10] MEDS ORDERED: PIPERACILLIN/TAZOBACTAM 2.25 GM VIAL IV ONE ×3 (06:21→19:43)
--- NOTE | 2020-11-10 06:30 | NUR ---
PT IS RESTING. RISE AND FALL OF CHEST NOTED PT IS CHRONIC TRACH TO VENT, SAO2 @100%. NO ACUTE DISTRESS NOTED. PT CONNECTED TO THE CHARGE POSTER. PT IS NOT IN ANY ACUTE DISTRESS AT THIS TIME. BED IS LOCKED AND IN LOWEST POSITION. SIDE RAILSX2 FOR PT PROTECTION DUE TO INABILITY TO AMBULATE. WILL CONTINUE TO MONITOR
[2020-11-10 07:00] VITALS: BP 144/61
[2020-11-10 07:28] VITALS: BP 153/66
--- NOTE | 2020-11-10 07:28 | NUR ---
RECEIVED ON A [employer]ASYS CONNOLLY VENTILATOR PLUGGED INTO RED OUTLET TOLERATING WELL WITHOUT ADVERSE REACTIONS NOTED TO A PORTEX DCT #8 AIRWAY SECURED WITH A PORTEX TRACH TIE CUFF PRESSURE CHECKED NOTED AMBU BAG AT BEDSIDE NO EVIDENCE OF RESPIRATORY DISTRESS NOTED EQUAL CHEST TISE DEEP TRACHEAL SUCTION FOR SMALL TICK YELLOW SECRETIONS AIRWAY PATENT
--- NOTE | 2020-11-10 07:40 | NUR ---
GAVE REPORT TO BANDAR TINOCO FOR TRANSFER OF CARE AT THIS TIME.
--- NOTE | 2020-11-10 09:06 | NUR ---
PATIENT HAS BEEN SCREENED AND CATEGORIZED HIGH NUTRITION RISK. PATIENT WILL BE SEEN WITHIN 1-2 DAYS OF ADMISSION. 11/10/20-11/11/[address]
[2020-11-10 09:07] LABS: MEAN CORPUSCULAR HEMOGLOBIN 28 pg (27-31); MEAN CORPUSCULAR HGB CONC 32 g/dL (33-37); MEAN CORPUSCULAR VOLUME 86.9 fL (80-94); PLATELET COUNT (AUTO) 408 K/uL (140-450); RED CELL DISTRIBUTION WIDTH 17.5 % (11.6-13.7); WHITE BLOOD COUNT (AUTO) 12.5 K/uL (4.8-10.8)
[2020-11-10 09:29] LABS: HEMATOCRIT 17.4 % (36-48); HEMOGLOBIN 5.6 g/dL (12.0-16.0)
[2020-11-10 10:11] LABS: ALBUMIN 1.5 g/dL (3.4-5.0); ANION GAP 17.8 (8-16); CARBON DIOXIDE 21.9 mmol/L (21-32); CREATININE 1.7 mg/dL (0.6-1.3); MAGNESIUM 3.5 mg/dL (1.8-2.4); POTASSIUM 3.7 mmol/L (3.5-5.1); TOTAL BILIRUBIN 0.3 mg/dL (0.0-1.0)
[2020-11-10 10:45] LABS: EOSINOPHILS % (MANUAL) 9 % (0-4); LYMPHOCYTES % (MANUAL) 10 % (20-46)
[2020-11-10 10:46] LABS: MONOCYTES % (MANUAL) 8 % (5-12)
[2020-11-10 12:15] VITALS: BP 158/68
--- NOTE | 2020-11-10 12:15 | NUR ---
RESTING WELL WITHOUT DISTRESS NOTED GOOD CHEST RISE AND AERATION THROUGHOUT BILATERAL LUNG THORPE AIRWAY PATENT
--- NOTE | 2020-11-10 13:00 | NUR ---
SOCIAL WORK NOTE: Patient's Orientation Unable To Assess Information Provided By RISHABH - MELITON Comments SW WAS UNABLE TO MEET PATIENT AT BEDSIDE NOR CONTACT HIS EMERGENCY CONTACT, JAIMIE PIÑA. SW COMPLETED ASSESSMENT WITH [facility] STAFF. Air Conditioning Coil Assembler, Realtionship and Phone Number JAIMIE PIÑA [id number] [phone] CARSON DENG FRIEND [phone] Healthcare Power of Lien Searcher No Does Patient Have a POLST No Identifying Problems No Social Work Triggers Is A Social Work Consult Needed No Mandate Report Filed No Explanation Of Identifying Problems PATIENT IS A 65-YEAR-OLD FEMALE ADMITTED FOR ACUTE CKD AND NSTEMI. PATIENT HAS PMHX OF ASTHMA. Admitted From [facility] [facility]/[place] [facility] Facility [facility] - [phone] Pre-Admission Level Of Functioning Status Total Care Level Of Functioning Comment PATIENT IS BED BOUND, PER RISHABH. Prior Resources/Services Used In Last 12 Months SNF Longterm Care Prior Resources/Service Comments PATIENT IS RESIDENTIAL AND ON A BED HOLD. Prior [facility] Hospital Bed Dialysis Comments N/A Patient Had Caregiver No Home Support No Caregiver Issues Financial Issues No Known Financial Issue Referral To The Financial Counselor Needed No Factors/Needs No D/C Needs Identified Pt/Rep Participated In Discharge Plan Yes Discharge Plan Comments TENTATIVE DISCHARGE PLAN IS FOR PATIENT TO RETURN HOME. DC Plan Status Initiated
--- NOTE | 2020-11-10 14:09 | NUR ---
PER LAB, CALL DR SCHAEFER AFTER BT AND REPEAT HGB AND HCT
--- NOTE | 2020-11-10 14:48 | NUR ---
GAVE REPORT TO BANDAR ORTIZ. TRANSFER OF CARE AT THIS TIME
--- NOTE | 2020-11-10 14:57 | NUR ---
REPORT RECEIVED FROM BANDAR TINOCO FOR CONTINUATION OF CARE.
--- NOTE | 2020-11-10 16:51 | NUR ---
WOUND CARE ADMINISTERED TO SACRUM WOUND. PICTURES TAKEN. NEW DRESSING PLACED. PT TOLERATED PROCEDURE WELL.
--- NOTE | 2020-11-10 17:04 | NUR ---
PERINEAL CARE ADMINISTERED, PT REPOSITIONED. PROCEDURE WELL TOLERATED BY PT.
[2020-11-10 17:25] VITALS: BP 177/71
--- NOTE | 2020-11-10 17:25 | NUR ---
STABLE RESTING WELL ASLEEP EASILY AWAKENS GOOD CHEST RISE DEEP TRACHEAL SUCTION FOR LARGE THICK YELLOW SECRETIONS AIRWAY PATENT
--- NOTE | 2020-11-10 18:55 | NUR ---
PER LAB - BLOOD IS READY FOR PICKUP
--- NOTE | 2020-11-10 19:17 | NUR ---
REPORT RECEIVED FROM YONG PORTILLO FOR CONTINUITY OF CARE.
--- NOTE | 2020-11-10 19:17 | NUR ---
REPORT GIVEN TO BANDAR PRESTON FOR TRANSFER OF CARE.
--- NOTE | 2020-11-10 21:00 | NUR ---
MISSAEL WEAVER BAG OF ZOSYN.
--- NOTE | 2020-11-10 23:12 | NUR ---
PT TRACH TO VENT. RESPIRATIONS EVEN AND UNLABORED. CHEST RISE IS SYMMETRICAL. WILL CONTINUE TO MONITOR.
--- NOTE | 2020-11-11 01:10 | NUR ---
PT TRACH TO VENT, EYES CLOSED, RESPIRATIONS EVEN AND UNLABORED. CHEST RISE IS SYMMETRICAL. WILL CONTINUE TO MONITOR.
--- NOTE | 2020-11-11 01:50 | NUR ---
EMPTIED OUT BELL CATHETER 2800 ML OF CLEAR, YELLOW URINE OUTPUT.
[2020-11-11] MEDS: hydrALAZINE 20 MG/ML VIAL IVP PRN ×4 (01:54→17:43)
--- NOTE | 2020-11-11 01:55 | NUR ---
BP 183/72. HYDRALAZINE PRN GIVEN. BP NOW IS 156/63. WILL CONTINUE TO MONITOR.
--- NOTE | 2020-11-11 03:40 | NUR ---
PT TRACH TO VENT, EYES CLOSED, RESPIRATIONS EVEN AND UNLABORED. CHEST RISE IS SYMMETRICAL. WILL CONTINUE TO MONITOR.
[2020-11-11] MEDS: PIPERACILLIN/TAZOBACTAM 2.25 GM in DEXTROSE 5% 50 ML IV SCH ×3 (05:45→13:30)
--- NOTE | 2020-11-11 05:47 | NUR ---
PT TRACH TO VENT, EYES CLOSED, RESPIRATIONS EVEN AND UNLABORED. CHEST RISE IS SYMMETRICAL. WILL CONTINUE TO MONITOR.
[2020-11-11] MEDS ORDERED: PIPERACILLIN/TAZOBACTAM 2.25 GM VIAL IV ONE ×2 (05:50→14:07)
--- NOTE | 2020-11-11 07:14 | NUR ---
REPORT GIVEN TO KWAKU PORTILLO FOR CONTINUITY OF CARE
[2020-11-11 07:25] VITALS: BP 173/76
--- NOTE | 2020-11-11 07:25 | NUR ---
RECEIVED ON A RAKESH CONNOLYL VENTILATOR PLUGGED INTO RED OUTLET TOLERATING WELL WITHOUT ADVERSE REACTIONS NOTED TO A PORTEX DCT #8 AIRWAY SECURED WITH A PORTEX TRACH TIE CUFF PRESSURE CHECKED NOTED AMBU BAG AT BEDSIDE LOC ASLEEP EASILY AWAKENS NO DISTRESS NOTED GOOD CHEST DEEP TRACHEAL SUCTION FOR SMALL SEMI THICK YELLOW SECRETIONS AIRWAY PATENT Addendum: 11/11/20 at 1212 by [place] RT RAKESH = AMI
[2020-11-11 08:32] LABS: BASOPHILS # (AUTO) 0.1 K/uL (0.00-0.22); BASOPHILS % (AUTO) 0.6 % (0.0-2.0); EOSINOPHILS % (AUTO) 9.5 % (0.0-4.0); HEMOGLOBIN 7.1 g/dL (12.0-16.0); LYMPHOCYTES # (AUTO) 0.9 K/uL (2.5-16.5); LYMPHOCYTES % (AUTO) 8.6 % (20.5-51.1); MEAN CORPUSCULAR HEMOGLOBIN 28 pg (27-31); MEAN CORPUSCULAR HGB CONC 32 g/dL (33-37); MEAN CORPUSCULAR VOLUME 87.7 fL (80-94); MONOCYTES # (AUTO) 0.8 K/uL (0.8-1.0); NEUTROPHILS # (AUTO) 7.9 K/uL (1.8-7.7); NEUTROPHILS % (AUTO) 74.3 % (42.2-75.2); PLATELET COUNT (AUTO) 453 K/uL (140-450); RED BLOOD CELL COUNT(AUTO) 2.51 MIL/uL (4.20-5.40); RED CELL DISTRIBUTION WIDTH 17.7 % (11.6-13.7); WHITE BLOOD COUNT (AUTO) 10.7 K/uL (4.8-10.8)
[2020-11-11 09:43] LABS: ALBUMIN 1.5 g/dL (3.4-5.0); ANION GAP 20.4 (8-16); CARBON DIOXIDE 18.4 mmol/L (21-32); CREATININE 1.6 mg/dL (0.6-1.3); MAGNESIUM 3.2 mg/dL (1.8-2.4); TOTAL BILIRUBIN 0.4 mg/dL (0.0-1.0)
[2020-11-11 11:23] LABS: POTASSIUM 2.8 mmol/L (3.5-5.1)
[2020-11-11] MEDS: NACL 0.9% 1,000 ML IV SCH (11:42)
[2020-11-11 11:50] VITALS: BP 186/67
--- NOTE | 2020-11-11 11:50 | NUR ---
RESTING WELL NO SOB NOTED EQUAL CHEST RISE AIRWAY PATENT
--- NOTE | 2020-11-11 13:30 | NUR ---
11/11/20 RD INITIAL ASSESSMENT COMPLETED PLEASE REFER TO NUTRITION ASSESSMENT UNDER CARE ACTIVITY FOR ESTIMATED NUTRITIONAL NEEDS. 1. RECOMMEND GLUCERNA 1.2 @ 60, START AT 20 AND INCREASE BY 20 Q4H. -THIS WILL PROVIDE 1440 ML OF VOLUME, 1159 ML OF WATER, 1728 KCAL, 86 GM OF PROTEIN. 2 RECOMMEND WATER FLUSH OF 140 ML Q6H 3. RECOMMEND VITAMIN C 500 MG BID AND ZINC DAILY 4. RD TO FOLLOW-UP 2-3 DAYS, HIGH RISK ALEXANDRU RECINOS RD
[2020-11-11 15:22] LABS: HEMATOCRIT 29.9 % (36-48); HEMOGLOBIN 9.7 g/dL (12.0-16.0)
--- NOTE | 2020-11-11 16:36 | NUR ---
Stable VSS Afebrile No SOB BContinues on Veat via Trach Repeat K and H and H to be reviewed
[2020-11-11 19:00] VITALS: BP 162/71
--- NOTE | 2020-11-11 19:01 | NUR ---
PAGED AND SPOKE TO DR. MARCIAL REGARDING PT'S POTASSIUM LEVEL 2.8.
--- NOTE | 2020-11-11 19:05 | NUR ---
REPORT RECEIVED FROM BANDAR AMES. TRANSFER OF CARE AT THIS TIME.
[2020-11-11 21:05] VITALS: BP 159/70
--- NOTE | 2020-11-11 21:20 | NUR ---
PT IN STABLE CONDITION. OPENS EYES TO VERBAL STIMUALTION. ALL NEEDS MET AT THIS TIME. EQUAL RISE AND FALL OF CHEST WALL. PT IN STABLE CONDITION. BED LOCKED IN LOWEST POSITION, SIDE RAILS X2.
--- NOTE | 2020-11-11 23:30 | NUR ---
PT HAS EYES CLOSED, EQUAL RISE AND FALL OF CHEST WALL. PT IN STABLE CONDITION. OPENS EYES TO VERBAL STIMUALTION. ALL NEEDS MET AT THIS TIME. EQUAL RISE AND FALL OF CHEST WALL. PT IN STABLE CONDITION. BED LOCKED IN LOWEST POSITION, SIDE RAILS X2.
[2020-11-12] MEDS: hydrALAZINE 25 MG TAB PO SCH ×4 (00:23→21:38)
[2020-11-12 00:40] VITALS: BP 165/67
--- NOTE | 2020-11-12 01:58 | NUR ---
PT IS SLEEPING. EQUAL RISE AND FALL OF CHEST WALL. PT IS IN STABLE CONDITION. SIDE RAILS X2. BED LOCKED IN LOWEST POSITION.
[2020-11-12] MEDS: KCL 20 MEQ/WATER INJ PREMIX 200 ML IV PRN ×2 (03:24→15:14)
--- NOTE | 2020-11-12 03:50 | NUR ---
PT SUCTIONED PER REQUEST, TOLERATED WELL. ALL PT NEEDS MET AT THIS TIME. EQUAL RISE AND FALL OF CHEST WALL. PT IN STABLE CONDITION. BED LOCKED IN LOWEST POSITION, SIDE RAILS X2.
[2020-11-12] MEDS ORDERED: PIPERACILLIN/TAZOBACTAM 2.25 GM VIAL IV ONE (04:26)
[2020-11-12] MEDS: PIPERACILLIN/TAZOBACTAM 2.25 GM in DEXTROSE 5% 50 ML IV SCH ×3 (04:28→21:36)
--- NOTE | 2020-11-12 05:12 | NUR ---
BP AT 161/65, CALLED PHARM SPOKE TO DIANE, VERIFIED IF IT IS OK TO GIVE HYDRALAZINE 50 MG VIA GT IF LAST DOSE WAS LATE, STATED IT IS SAFE.
[2020-11-12 05:13] VITALS: BP 161/65
--- NOTE | 2020-11-12 05:50 | NUR ---
PERINEAL CARE PERFORMED. PT IS IN STABLE CONDITION. SIDE RAILS X2, BED LOCKED IN LOWEST POSITION.
--- NOTE | 2020-11-12 06:25 | NUR ---
BELL BAG EMPTIED 500 CC CLEAR YELLOW URINE.
--- NOTE | 2020-11-12 07:36 | NUR ---
REPORT GIVEN TO BANDAR GREEN. TRANSFER OF CARE AT THIS TIME.
[2020-11-12 07:44] VITALS: BP 164/75
--- NOTE | 2020-11-12 07:44 | NUR ---
RECEIVED ON A VIASYS CONNOLLY ([employer]) MONITOR PLUGGED INTO RED OUTLET TOLERATING WELL WITHOUT ADVERSE REACTIONS NOTED TO A PORTEX DCT #8 AIRWAY SECURED WITH A PORTEX TRACH TIE CUFF PRESSURE CHECKED NOTED AMBU BAG AT BEDSIDE LOC ASLEEP EASILY AWAKENS EQUAL CHEST RISE DEEP TRACHEAL SUCTION FOR LARGE THIN PALE YELLOW SECRETIONS AIRWAY PATENT
--- NOTE | 2020-11-12 08:00 | NUR ---
REC'D PT FROM [facility] IN ER. PT STABLE, ON TRACH TO VENT. SETTINGS: V 450ML, PEAK FLOW:50L/MIN, PEEP:5, FIO2: 28%. RATE: 16BPM. PT GTUBE SITE DRY, CLEAN, 16F BELL CATHETER, INTACT. R. EJ 20G (CERVICAL) INFUSING NS/60ML. PT ABLE TO RESPOND TO QUESTIONS BY BLINKING AND NODDING HEAD.
--- NOTE | 2020-11-12 08:00 | NUR ---
Patient will be admitted to care of Dr Cooley. Admited to tele. Will go to room 110A. Belongings list completed. Report to Estephania PORTILLO.
[2020-11-12 08:17] LABS: BASOPHILS % (AUTO) 0.4 % (0.0-2.0); EOSINOPHILS # (AUTO) 0.4 K/uL (0-0.4); EOSINOPHILS % (AUTO) 4.1 % (0.0-4.0); HEMATOCRIT 29.8 % (36-48); HEMOGLOBIN 9.5 g/dL (12.0-16.0); LYMPHOCYTES # (AUTO) 1.1 K/uL (2.5-16.5); LYMPHOCYTES % (AUTO) 10.6 % (20.5-51.1); MEAN CORPUSCULAR HEMOGLOBIN 28 pg (27-31); MEAN CORPUSCULAR HGB CONC 32 g/dL (33-37); MEAN CORPUSCULAR VOLUME 88.2 fL (80-94); MONOCYTES # (AUTO) 0.8 K/uL (0.8-1.0); MONOCYTES % (AUTO) 7.8 % (1.7-9.3); NEUTROPHILS % (AUTO) 77.1 % (42.2-75.2); PLATELET COUNT (AUTO) 482 K/uL (140-450); RED BLOOD CELL COUNT(AUTO) 3.38 MIL/uL (4.20-5.40); RED CELL DISTRIBUTION WIDTH 15.6 % (11.6-13.7); WHITE BLOOD COUNT (AUTO) 10.4 K/uL (4.8-10.8)
[2020-11-12] MEDS ORDERED: hydrALAZINE 20 MG/ML VIAL IVP PRN (08:30)
--- NOTE | 2020-11-12 08:34 | NUR ---
DR. PIEDRA AT BEDSIDE TO EXAMINE PT. INFORMED HIM OF ELEVATED B/P 195/77. ORDERED HYDRALAZINE 10MG IVP Q4H PRN FOR SYSTOLIC B/P ABOVE 160. ORDER ENTERED IN SYSTEM
--- NOTE | 2020-11-12 08:51 | NUR ---
ADMINISTERED HDYRALAZINE 10 MG PER MD ORDER FOR ELEVATED SYSTOLIC PRESSURE. CHECKED PATENCY AND FLUSHED WITH 5ML NS. PT TOLERATED PROCEDURE WELL
[2020-11-12 09:41] LABS: ALBUMIN 1.7 g/dL (3.4-5.0); CARBON DIOXIDE 14.8 mmol/L (21-32); CREATININE 1.5 mg/dL (0.6-1.3); TOTAL BILIRUBIN 0.5 mg/dL (0.0-1.0)
[2020-11-12 09:42] LABS: ANION GAP 24.2 (8-16)
[2020-11-12 12:00] VITALS: BP 164/71
[2020-11-12] MEDS: CLONIDINE HYDROCHLORIDE 0.1 MG TAB PO SCH (13:41)
[2020-11-12] MEDS ORDERED: POTASSIUM CHLORIDE 10 MEQ TABER PO SCH (13:55)
--- NOTE | 2020-11-12 14:21 | NUR ---
ADMINISTERED MEDICATIONS PER MD ORDER. ZOSYN ADMINISTERED, IV SITE PATENT, FLUSHED WITH 5ML NS. GTUBE WITH 5ML RESIDUAL, ADMINISTERED GT MEDS WITHOUT COMPLICATION, FLUSHED WITH STERILE WATER POST ADMINISTRATION.
[2020-11-12] MEDS ORDERED: PIPE50SO5 IV (15:06)
--- NOTE | 2020-11-12 15:29 | NUR ---
PT POTASSIUM 3.0, ADMINISTERED POTASSIUM PER MD ORDER. PT TOLERATED PROCEDURE WELL.
[2020-11-12 16:00] VITALS: BP 160/75
--- NOTE | 2020-11-12 16:00 | NUR ---
PER NATIONAL RECRUITER NO ENTERAL FEEDING PUMP AVAILABLE, GAVE BOLUS OF 50 CC, PT TOLERATED PROCEDURE WELL
--- NOTE | 2020-11-12 16:38 | NUR ---
CONTACTED [facility], SPOKE WITH MANINDER-RN SUB ACUTE SECURITY SALES CONSULTANT, STATED SHE WILL GET IN TOUCH WITH THEIR INDUSTRIAL MANAGEMENT TEACHER. PER MELBA, NO BED AVAILABLE FOR TODAY AND TO CALL [facility] TOMORROW TO FOLLOW UP FOR THE BED.
--- NOTE | 2020-11-12 18:00 | NUR ---
COLLECTED NASAL SPECIMEN FOR MRSA SCREEN, PT TOLERATED PROCEDURE WELL
--- NOTE | 2020-11-12 19:45 | NUR ---
ENDORSED PT TO ENROBING MACHINE CORDER NURSE, PT STABLE.
[2020-11-12 20:00] VITALS: BP 157/70
[2020-11-12] MEDS: DOCUSATE 100 MG/10 ML UDC GT SCH (21:37)
[2020-11-12] MEDS: carvediloL 12.5 MG TAB GT SCH (21:38)
[2020-11-12] MEDS: levETIRAcetam 500 MG TAB PO SCH (21:39)
[2020-11-13] VITALS: BP 136/59
[2020-11-13 04:00] VITALS: BP 152/62
[2020-11-13] MEDS: hydrALAZINE 25 MG TAB PO SCH ×2 (04:11→13:00)
[2020-11-13] MEDS: PIPERACILLIN/TAZOBACTAM 2.25 GM in DEXTROSE 5% 50 ML IV SCH ×2 (04:12→14:13)
[2020-11-13] MEDS ORDERED: LEVOTHYROXINE 0.075 MG TAB PO SCH (06:30)
--- NOTE | 2020-11-13 07:00 | NUR ---
[facility]OS TELE NOTE: 11/12/20 2000 SR w BBB QRS 0.14 HR 88 0033 SR w BBB QRS 0.14-0.16 HR 76 0420 SR w BBB QRS 0.14-0.16
[2020-11-13] MEDS ORDERED: NON-FORMULARY ITEM (Losartan Potassium 1 TAB) GT/PO SCH (09:00)
[2020-11-13] MEDS ORDERED: SERTRALINE 50 MG TAB GT SCH (09:00)
[2020-11-13] MEDS ORDERED: ZINC SULF 220 MG CAP GT SCH (09:00)
[2020-11-13] MEDS ORDERED: LOSARTAN 50 MG TAB GT SCH (09:00)
[2020-11-13] MEDS ORDERED: ASCORBIC ACID 500 MG/5 ML ORASYR GT SCH (09:00)
[2020-11-13] MEDS ORDERED: AMITRIPTYLINE 25 MG TAB GT SCH (09:00)
[2020-11-13] MEDS ORDERED: NON-FORMULARY ITEM (Vit C/Ascorbate Ca/Ascorb Sod (Vitamin C 500 mg/15 ml Liquid) 500 MG) GT/PO SCH (09:00)
[2020-11-13] MEDS ORDERED: POTASSIUM CHLORIDE 10 MEQ TABER PO SCH ×2 (09:00→12:00)
[2020-11-13 09:33] LABS: BASOPHILS % (AUTO) 0.4 % (0.0-2.0); EOSINOPHILS # (AUTO) 0.6 K/uL (0-0.4); EOSINOPHILS % (AUTO) 6.2 % (0.0-4.0); HEMATOCRIT 26.2 % (36-48); HEMOGLOBIN 8.6 g/dL (12.0-16.0); LYMPHOCYTES # (AUTO) 1.1 K/uL (2.5-16.5); LYMPHOCYTES % (AUTO) 12.6 % (20.5-51.1); MEAN CORPUSCULAR HEMOGLOBIN 29 pg (27-31); MEAN CORPUSCULAR HGB CONC 33 g/dL (33-37); MEAN CORPUSCULAR VOLUME 89.3 fL (80-94); MONOCYTES # (AUTO) 0.8 K/uL (0.8-1.0); MONOCYTES % (AUTO) 8.6 % (1.7-9.3); NEUTROPHILS # (AUTO) 6.6 K/uL (1.8-7.7); NEUTROPHILS % (AUTO) 72.2 % (42.2-75.2); PLATELET COUNT (AUTO) 432 K/uL (140-450); RED BLOOD CELL COUNT(AUTO) 2.93 MIL/uL (4.20-5.40); RED CELL DISTRIBUTION WIDTH 16.1 % (11.6-13.7); WHITE BLOOD COUNT (AUTO) 9.1 K/uL (4.8-10.8)
[2020-11-13 10:50] LABS: ALBUMIN 1.7 g/dL (3.4-5.0); ANION GAP 21.1 (8-16); CARBON DIOXIDE 16.3 mmol/L (21-32); CREATININE 1.6 mg/dL (0.6-1.3); MAGNESIUM 2.9 mg/dL (1.8-2.4); TOTAL BILIRUBIN 0.4 mg/dL (0.0-1.0)
[2020-11-13] MEDS: DOCUSATE 100 MG/10 ML UDC GT SCH (10:50)
[2020-11-13] MEDS: CLONIDINE HYDROCHLORIDE 0.1 MG TAB PO SCH ×3 (10:50→17:59)
[2020-11-13] MEDS: carvediloL 12.5 MG TAB GT SCH (10:51)
[2020-11-13] MEDS: levETIRAcetam 500 MG TAB PO SCH (10:52)
[2020-11-13 11:27] LABS: POTASSIUM 2.4 mmol/L (3.5-5.1)
[2020-11-13] MEDS ORDERED: POTASSIUM CHL 20 MEQ/ 1/2 NS 1,000 ML IV SCH (11:45)
[2020-11-13] MEDS ORDERED: POTASSIUM CHLORIDE 40 MEQ, LIDOCAINE MPF 1% 25 MG in NACL 0.9% 250 ML IV SCH (13:00)
--- NOTE | 2020-11-13 13:24 | NUR ---
DISCHARGE PLANNING: RECEIVED AN ORDER TO DC PATIENT BACK TO SNF. CLINICALS SENT TO [facility]. RECEIVED A CALL BACK FROM RISHABH OF [facility], ASKING ABOUT ISOLATION. INFORMED HER THAT PATIENT'S URINE CS CAME BACK POSITIVE FOR E COLI ESBL. SHE STATED SHE WILL CALL ME BACK WITH ROOM NUMBER IN A FEW. PER RISHABH OF [facility], PATIENT CAN GO TO [address] UND[address] HOU AND REQUESTED TO HAVE TRANSPORT FOR 1600. Addendum: 11/13/20 at 1537 by Rosa Gutierrez PER RISHABH PATIENT WILL GO TO ROOM 24A UNDER DR[address] OH[facility], NUMBER TO CALL FOR REPORT [phone]. [facility] PROVIDED ME TRANSPORT AUTH H [id number] AND FOR [facility] [id number]. AUTH FOR [facility] PROVIDED TO RISHABH. SPOKE TO PRIMARY RN TO INFORM HER OF THE DC, SHE STATED POTASSIUM LEVEL IS LOW TODAY AND IS REPLACING AT THE MOMENT. DR. SCHAEFER MADE AWARE. HE STATED WILL DC AFTER REPLACING K, NO NEED TO RECHECK LEVELS AFTER. PER NATHALY OF [facility] [phone], PICK WILL BE AT 1930. PRIMARY RN DIXIE MADE AWARE.
[2020-11-13 16:49] LABS: ANION GAP 20.1 (8-16); CARBON DIOXIDE 18.1 mmol/L (21-32); CREATININE 1.6 mg/dL (0.6-1.3); POTASSIUM 3.2 mmol/L (3.5-5.1)
[2020-11-13 17:59] VITALS: BP 163/57
--- NOTE | 2020-11-13 18:04 | NUR ---
CLONIDINE GIVEN VIA G TUBE. PATIENT TOLERATED THE PROCEDURE WELL. SAFETY MEASURES IN PLACE, WILL CONTINUE TO MONITOR.
--- NOTE | 2020-11-13 18:45 | NUR ---
REPORT GIVEN TO AZ/RN OF [facility] ROOM 20B. PATIENT IS GOING TO BE PICKED UP BY 1930. PATIENT IN STABLE CONDITION.
--- NOTE | 2020-11-13 19:43 | NUR ---
[facility] HERE FOR REAL ESTATE LISTING CONSULTANT. PT IN STABLE CONDITION. NAME BAND OFF 24G IV ON R HAND REMOVED, PT LEAVING WITH BELL CATHETER INTACT AND R EJ 18G. PT WILL CONTINUE [place] [facility] [place] . LEFT WITH D/C PAPERS, PT HAS NO PERSONAL BELONGINGS.
[2020-11-14] MEDS ORDERED: POTASSIUM CHLORIDE 10 MEQ TABER PO SCH (09:00)
== END 2020-11-13 20:00 | DRG 720 ==
LOC: MED 10:39 → MTU 15:04
PROVIDERS: ADMIT Hospitalist; ATTEND Hospitalist
PROC: 5A1945Z Respiratory Ventilation, 24-96 Consecutive Hours (ICD-10-PCS; 2020-11-09)
PROC: 30233N1 Transfusion of Nonautologous Red Blood Cells into Peripheral Vein, Percutaneous Approach (ICD-10-PCS; principal; 2020-11-11)
DX: A41.9 Sepsis, unspecified organism (principal); I21.4 Non-ST elevation (NSTEMI) myocardial infarction; J18.9 Pneumonia, unspecified organism; D64.9 Anemia, unspecified; Z93.0 Tracheostomy status; R13.10 Dysphagia, unspecified; J96.11 Chronic respiratory failure with hypoxia; E11.22 Type 2 diabetes mellitus with diabetic chronic kidney disease; E87.1 Hypo-osmolality and hyponatremia; Z93.1 Gastrostomy status; Z99.11 Dependence on respirator [ventilator] status; Z20.828 Contact with and (suspected) exposure to other viral communicable diseases; N18.30 Chronic kidney disease, stage 3 unspecified; I12.9 Hypertensive chronic kidney disease with stage 1 through stage 4 chronic kidney disease, or unspecified chronic kidney disease; E03.9 Hypothyroidism, unspecified; N39.0 Urinary tract infection, site not specified; E87.2 Acidosis; N17.0 Acute kidney failure with tubular necrosis; I50.21 Acute systolic (congestive) heart failure
CPT/HCPCS: 36415; 71045; 76770; 80048; 80053; 81001; 83605; 83735; 83880; 84132; 84484; 85018; 85025; 85379; 85610; 85730; 86870; 86886; 86900; 86901; 86920; 87040; 87081; 87086; 93005; 94002; 94003; 96365; 96366; 99291; J0360; J0456; J1956; J2001; J2543; J3480; J7030; J7060; P9016; U0003

== ENCOUNTER 2020-11-16 19:29 | Emergency (ER) | payer OTHER, SELFPAY ==
[~2020-11-16] VITALS: Ht 172.7 cm; Wt 72.6 kg
[~2020-11-16 19:29] MED LIST changes: +PIPE50SO5 IV
--- NOTE | 2020-11-16 19:29 | NUR ---
1927---Patient BIBA ALS with CPR in progress, transferred to bed 3. Dr. Vaughn, RT, and RN at bedside are evaluating the patient at bedside. CPR continued by [facility] staff.
--- NOTE | 2020-11-16 19:29 | NUR ---
1927 --- SEE CODE BLUE RECORD AND RESUSCITATION DOCUMENTATION
--- NOTE | 2020-11-16 19:42 | NUR ---
ROSC ACHIEVED - HEART RATE 84 BPM.
[2020-11-16] MEDS ORDERED: NACL 0.9% 1,000 ML IV ONE (20:00)
--- NOTE | 2020-11-16 20:20 | NUR ---
PT CODED, ACLS DRUG WAS GIVEN AND CPR. DR TAYLOR AND RN AT BEDSIDE.
[2020-11-16] MEDS ORDERED: PIPERACILLIN/TAZOBACTAM 3.375 GM in DEXTROSE 5% 50 ML IV ONE (20:30)
[2020-11-16] MEDS ORDERED: AZITHROMYCIN 500 MG in DEXTROSE 5% 250 ML IV ONE (20:30)
[2020-11-16] MEDS ORDERED: VANCOMYCIN 1GM/DEXT 5% PREMIX 200 ML IV ONE (20:30)
[2020-11-16] MEDS ORDERED: VANCOMYCIN PER PHARMACY MC PRN (20:30)
[2020-11-16 20:33] LABS: MEAN CORPUSCULAR HEMOGLOBIN 29 pg (27-31); MEAN CORPUSCULAR HGB CONC 29 g/dL (33-37); MEAN CORPUSCULAR VOLUME 99.5 fL (80-94); PLATELET COUNT (AUTO) 424 K/uL (140-450); RED BLOOD CELL COUNT(AUTO) 1.17 MIL/uL (4.20-5.40); RED CELL DISTRIBUTION WIDTH 19.8 % (11.6-13.7)
--- NOTE | 2020-11-16 20:39 | NUR ---
CPR INITIATED, PT PULSELESS
[2020-11-16] MEDS ORDERED: EPINEPHrine 1:1000 - 1 MG/ML AMP ONE (20:40)
[2020-11-16 20:43] LABS: APPEARANCE,URINE SL CLOUDY (CLEAR); BILIRUBIN,URINE NEGATIVE (NEGATIVE); BLOOD, URINE 1+ (NEGATIVE); COLOR,URINE YELLOW (YELLOW); LEUKOCYTE ESTERASE ,URINE NEGATIVE (NEGATIVE); NITRITE, URINE NEGATIVE (NEGATIVE); PH,URINE 5.5 (5.0-9.0); UGLUCOSE NEGATIVE (NEGATIVE)
[2020-11-16 20:51] LABS: PROTHROMBIN TIME 11.6 secs (10.8-13.4)
--- NOTE | 2020-11-16 20:54 | NUR ---
time of 2052
[2020-11-16 20:56] LABS: BARBITURATE, URINE NEGATIVE ng/ml (NEG <=200); BENZODIAZEPINE, URINE NEGATIVE ng/mL (NEG <=200); CANNABINOID, URINE NEGATIVE ng/mL (NEG <=50); COCAINE, URINE NEGATIVE ng/mL (NEG <=300); OPIATE, URINE NEGATIVE ng/mL (NEG <=2000); PHENCYCLIDINE SCREEN,URINE NEGATIVE ng/mL (NEG <=25)
--- NOTE | 2020-11-16 21:00 | NUR ---
SEE CODE SHEET FOR DETAILS
[2020-11-16 21:02] LABS: RBC,URINE 11-20 (MOD) /HPF (0-5); WBC,URINE 0-5 /HPF (0-5); YEAST,URINE Moderate /HPF (None Seen)
[2020-11-16 21:04] LABS: ALBUMIN 1.6 g/dL (3.4-5.0); ANION GAP 24.6 (8-16); CREATININE 1.8 mg/dL (0.6-1.3); POTASSIUM 4.6 mmol/L (3.5-5.1); TOTAL BILIRUBIN 1.6 mg/dL (0.0-1.0)
[2020-11-16 21:05] LABS: WHITE BLOOD COUNT (AUTO) 31.5 K/uL (4.8-10.8)
[2020-11-16 21:06] LABS: HEMATOCRIT 11.6 % (36-48); HEMOGLOBIN 3.4 g/dL (12.0-16.0)
[2020-11-16 21:07] LABS: BLASTS, MANUAL % 1 % (0-0); EOSINOPHILS % (MANUAL) 3 % (0-4); LYMPHOCYTES % (MANUAL) 16 % (20-46); METAMYELOCYTES % 1 % (0-0); MONOCYTES % (MANUAL) 1 % (5-12); MYELOCYTES % 2 % (0-0); PROMYELOCYTES % 4 % (0-0)
--- NOTE | 2020-11-17 04:47 | NUR ---
[facility] PICKED UP PATIENT
== END 2020-11-17 04:47 ==
LOC: MED 19:29
DX: I46.9 Cardiac arrest, cause unspecified (principal); E11.9 Type 2 diabetes mellitus without complications; I10 Essential (primary) hypertension; E07.9 Disorder of thyroid, unspecified; Z79.4 Long term (current) use of insulin; Z79.899 Other long term (current) drug therapy
CPT/HCPCS: 36415; 36556; 71045; 80053; 80305; 81001; 82550; 83605; 83690; 83880; 84484; 85025; 85610; 87086; 92950; 99291; G0480; G0482; J0171; J3370